=== PATIENT | male | born 1955 | race Caucasian/White ===

== ENCOUNTER 2021-07-17 11:04 | Outpatient (CLI) | payer MEDICARE, SELFPAY ==
--- NOTE | ~2021-07-17 | XR_ITS ---
EXAMINATION: XR UGIAC wo kub DATE: 07/17/2021 11:49 INDICATION: Chronic cough, right chest pain TECHNIQUE: The patient drank thick barium, gas-producing crystals, and thin barium. Conventional supi ne abdomen radiographs and fluoroscopy of the esophagus, stomach, and proximal small bowel were perfo rmed. Fluoroscopy exposure time was 2.9 minutes. The DAP for this procedure was 19 Gycm2. COMPARISON: None. FINDINGS: There is no mass or stricture of the esophagus. Esophageal motility is normal. There is a s mall sliding hiatal hernia. There was a small amount of spontaneous gastroesophageal reflux. The stom ach and proximal small bowel show normal folding patterns. IMPRESSION: 1. Small sliding hiatal hernia. 2. Small amount of spontaneous gastroesophageal reflux. Reviewed, dictated and finalized at location A.
== END 2021-07-17 11:05 | disposition home or self-care (01) ==
LOC: ANHIMG 11:08
PROVIDERS: PCP Physician Assistant; Visit Provider Physician Assistant
DX: R05.3 Chronic cough (principal); K44.9 Diaphragmatic hernia without obstruction or gangrene
CPT/HCPCS: 74246

== ENCOUNTER 2021-07-23 08:06 | Outpatient (CLI) | payer MEDICARE, SELFPAY ==
--- NOTE | 2021-07-24 11:17 | WPDPFTINT ---
PFT Procedure Performed PFT Procedure Performed Spirometry with Pre/Post Bronchodilator Plethysmography (Lung Vol) Diffusing Cap (DLCO) Flow Vol Loop PFT Interpretation Lung volumes were measured with the body plethysmography method. Lung volumes are unremarkable. Spirometry showed normal expiratory flow rates and a normal FEV1 to FVC ratio of 86%. Following administration of a bronchodilator there was no significant change in the expiratory flow rates. Lung diffusion capacity is within the normal range at 83% predicted. The flow volume loop is unremarkable. Impression: Spirometry, lung volumes, and lung diffusion capacity all within the normal range.
== END 2021-07-23 08:07 | disposition home or self-care (01) ==
LOC: ANHPFT 08:07
PROVIDERS: PCP Physician Assistant
DX: R05.3 Chronic cough (principal)
CPT/HCPCS: 94060; 94726; 94729

== ENCOUNTER 2024-02-23 09:42 | Outpatient (CLI) | payer MEDICARE, SELFPAY ==
--- NOTE | ~2024-02-23 | XR_ITS ---
Clinical Indication: Malignant melanoma PA and lateral views of the chest: Comparison: 04/03/2015 Findings: The lungs are clear, without evidence of focal consolidation or pleural effusion. Cardiome diastinal silhouette is within normal limits. Bones and soft tissues are unremarkable. Impression: Normal chest. Reviewed, dictated and finalized at location . ORIAL ARTIST Impression: Normal chest.
== END 2024-02-23 09:43 | disposition home or self-care (01) ==
LOC: GOSHIMG 09:44
PROVIDERS: PCP Surgery; Visit Provider Surgery
DX: C43.59 Malignant melanoma of other part of trunk (principal)
CPT/HCPCS: 71046

== ENCOUNTER 2024-03-23 14:04 | Outpatient (CLI) | payer MEDICARE, SELFPAY ==
--- NOTE | ~2024-03-23 | XR_ITS ---
EXAMINATION: XR shoulder RT min 2V, XR clavicle BI, XR shoulder LT min 2V DATE: 03/23/2024 14:32 INDICATION: Bilateral shoulder pain TECHNIQUE: 1. AP internally and externally rotated, AP oblique externally rotated and transscapular Y views of t he affected shoulder were obtained. 2. AP internally and externally rotated, AP oblique externally rotated and transscapular Y views of t he affected shoulder were obtained. 3. AP and cephalad angled frontal views of both the left and right ankles were obtained. COMPARISON: None FINDINGS: Right shoulder and clavicle: Normal alignment. No fracture. Glenohumeral joint is normal. Mild acromioclavicular osteoarthritis. Tiny calcific densities in the soft tissues adjacent to the posterior margin of the middle facet of t he right greater tuberosity consistent with infraspinatus calcific tendinitis.. Right lung is clear w ith no pleural effusion or pneumothorax. Left shoulder and clavicle: Normal alignment. No fracture. Glenohumeral joint is normal. Mild to moderate left acromioclavicular osteoarthritis. Moderate-sized anterior left acromial spur. Soft tissues are unremarkable. Left lung is clear with no pleural effusion or pneumothorax. IMPRESSION: 1. 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 2. Right infraspinatus calcific tendinitis. Reviewed, dictated and finalized at location B. SKEINS EXAMINER IMPRESSION: 1. Mild right-sided and mild to moderate left-sided acromioclavicular osteoarth ritis. 2. Right infraspinatus calcific tendinitis. IMPRESSION: 1. Mild right-sided and mild to moderate left-sided acromioclavicular osteoarth ritis. 2. Right infraspinatus calcific tendinitis.
== END 2024-03-23 14:05 | disposition home or self-care (01) ==
LOC: GOSHIMG 14:07
PROVIDERS: PCP Physician Assistant; Visit Provider Physician Assistant
DX: M19.011 Primary osteoarthritis, right shoulder (principal); M75.31 Calcific tendinitis of right shoulder; M19.012 Primary osteoarthritis, left shoulder
CPT/HCPCS: 73000; 73030

== ENCOUNTER 2024-07-05 08:55 | Outpatient (CLI) | payer MEDICARE, SELFPAY ==
--- NOTE | ~2024-07-05 | CT_ITS ---
EXAMINATION: CT sinus wo con DATE: 07/05/2024 09:09 INDICATION: Deviated nasal septum TECHNIQUE: Computed tomography (CT) of the paranasal sinuses was performed without intravenous contra st. The dose-length product was 400.44 mGy-cm. Automated exposure control and iterative reconstructio n technique were employed. COMPARISON: None FINDINGS: Rightward nasal septal deviation. There is mucosal thickening of the maxillary sinuses. The re is mild mucosal thickening of the point sinuses. There is a small air-fluid level in the left maxi llary sinus. No mucoperiosteal reaction. Ostiomeatal units are patent. IMPRESSION: 1. Mild-moderate sinus disease primarily involving the maxillary sinuses. 2: Rightward nasal septal deviation. Reviewed, dictated and finalized at location A.
== END 2024-07-05 08:56 | disposition home or self-care (01) ==
PROVIDERS: PCP Otolaryngology; Visit Provider Otolaryngology
DX: J34.2 Deviated nasal septum (principal); J32.9 Chronic sinusitis, unspecified
CPT/HCPCS: 70486

== ENCOUNTER 2024-10-01 13:21 | Outpatient (CLI) | payer MEDICARE, SELFPAY ==
--- NOTE | 2024-10-01 13:31 | ECG_ITS ---
Test Date: 2024-10-01 13:48:21 Measurements Intervals Devine Rate: 56 P: 71 GA: 171 QRS: 0 QRSD: 108 T: 23 QT: 425 QTc: 411 Interpretive Statements SINUS BRADYCARDIA VOLTAGE CRITERIA FOR LVH, CONSIDER NORMAL VARIANT Electronically Signed On 10-02-2024 17:08:16 CDT by Michael Hills D.O
--- OUTSIDE RECORDS SUMMARY | 2024-10-01 13:33 | XMS_ITS | Referral Summary ---
Author Organization [address] Address [address] [place] [id number] Care Team Providers Care Cpo Name Role Phone Karen Donovan Primary Care Pr ovider Allergies No known active allergies Medications ISOtretinoin (Accutane) 40 mg capsule Take 1 capsule (40 mg total) by mouth once a week Active irbesartan (AVAPRO) 300 mg tablet Take 1 tablet (300 mg total) by mouth daily 2 Active rosuvastatin (CRESTOR) 10 mg tablet Take 1 tablet (10 mg total) by mouth daily 2 Active tadalafiL (CIALIS) 5 mg tablet Take 1 tablet (5 mg total) by mouth daily 3 Active Xyosted 75 mg/0.5 mL auto-injector Inject 2 mL under the skin once a week 5 Active triamcinolone (KENALOG) 0.5 % cream APPLY TOPICALLY TO RASH TWICE DAILY FOR 4 WEEKS. STOP FOR 2 WEEKS BEFORE RESTARTING NO FACE 5 Active Active Problems No known active problems Social History Tobacco Use Types Packs/Day Years Used Date Smoking Tobacco: Never Smokeless Tobacco: Never Tobacco Cessation:Counseling Given: No AUDIT-C Answer Date Recorded Q1: How often do you have a drink containing alcohol? Never 05/01/2024 Q2: How many drinks containi ng alcohol do you have on a typical day when you are drinking? Patient does not drink 5 Q3: How often do you have si x or more drinks on one occasion? Never 05/01/2024 Sex and Gender Information Value Date Recorded Sex Assigned at Not on file Legal Sex Male 9:47 AM CDT Gender Identity Not on file Sexual Orientation Not on file Last Filed Vital Signs Vital Sign Reading Time Taken Comments Blood Pressure 138/83 06/13/2024 8:14 AM CDT Pulse 60 06/13/2024 8:14 AM CDT Temperature 36.8 C (98.3 F) 06/13/2024 8:14 AM CDT Respiratory Rate 20 06/13/2024 8:14 AM CDT Oxygen Saturation 100% 06/13/2024 8:14 AM CDT Inhaled Oxygen Concentration - - Weight 78.5 kg (173 lb) 06/13/2024 8:14 AM CDT Height 172.7 cm (5' 8) 06/13/2024 8:14 AM CDT Body Mass Index 26.3 06/13/2024 8:14 AM CDT Plan of Treatment Not on file Insurance MEDICARE AET SENIOR SUPPLEMENT Care Teams Cpo Relationship Specialty Start Date End Date Karen Donovan PA [address] [place] [address] PCP - General Physician Return Checker 04/05/24
--- OUTSIDE RECORDS SUMMARY | 2024-10-01 13:33 | XMS_ITS | Clinical Summary ---
Author Organization [facility] Address [address] [place] [address] Care Team Providers Care Gear And Spline Grinder Name Role Phone Karen Bond Primary Care Pr ovider Source Comments [facility],non-owned Affiliates and Associated Physician Practices is amultiple site organization consisting of ambulatory clinics and hospital sitesin [place], [place], [place] and [place]. This disclosure is being madepursuant to the Care Everywhere program and may not contain all information available regarding this patient. Last updated 17.[facility] Allergies No known active allergies Medications * Be aware that medications may not be up to date on this document. Alwaysverify current medications with the patient. irbesartan (Avapro) 300 MG tablet Take 1 (one) tablet by mouth once daily 08/17/2021 Active ISOtretinoin (Accutane) 40 MG capsule Take 1 (one) capsule by mouth once a week Active rosuvastatin (Crestor) 10 MG tablet 12/01/2022 Active tadalafil (Cialis) 5 MG tablet Take 1 (one) tablet by mouth once daily 12/01/2022 Active Active Problems Problem Noted Date Diagnosed Date Malignant melanoma of skin of chest 12/06/2022 Social History Tobacco Use Types Packs/Day Years Used Date Smoking Tobacco: Never Smokeless Tobacco: Never Tobacco Cessation:Counseling Given: Not Answered AUDIT-C Answer Date Recorded Q1: How often do you have a drink containing alcohol? Never 01/11/2023 Q2: How many drinks containi ng alcohol do you have on a typical day when you are drinking? Patient does not drink 11/07/202 3 Q3: How often do you have si x or more drinks on one occasion? Never 01/11/2023 Sex and Gender Information Value Date Recorded Sex Assigned at Not on file Legal Sex Male 6:05 AM PROCEDURE RN Gender Identity Not on file Sexual Orientation Not on file Last Filed Vital Signs Vital Sign Reading Time Taken Comments Blood Pressure 112/69 02/06/2024 1:22 PM PROCEDURE RN Pulse 66 02/06/2024 1:22 PM PROCEDURE RN Temperature 36.6 C (97.9 F) 02/06/2024 1:22 PM PROCEDURE RN Respiratory Rate 12 01/11/2023 11:45 AM PROCEDURE RN Oxygen Saturation 95% 02/06/2024 1:22 PM PROCEDURE RN Inhaled Oxygen Concentration - - Weight 76.7 kg (169 lb) 02/06/2024 1:22 PM PROCEDURE RN Height 172.7 cm (5' 8) 02/06/2024 1:22 PM PROCEDURE RN Body Mass Index 25.7 02/06/2024 1:22 PM PROCEDURE RN Plan of Treatment Health Maintenance Due Date Last Done Comments COLON MONITORING 1954 COLONOSCOPY - COLON CA SCREENING 1954 CT COLONOGRAPHY - COLON CA SCREENING 1954 FIT - COLON CA SCREENING 1954 FLEX SIG - COLON CA SCREENING 1954 MEDICARE AWV 12 MONTHS 1954 HEPATITIS C SCREENING 12/03/1972 DTAP/TDAP/TD VACCINES (1 - Tdap) 1973 PNEUMOCOCCAL VACCINE 50+ (1 of 1 - PCV) 2004 ZOSTER VACCINE (1 of 2) 2004 COVID-19 VACCINE (2 - 2023-2 5 season) 2023 11/29/2020 SCREENING FOR DIABETES 02/06/2024 DEPRESSION SCREENING 03/07/2024 COLOGUARD (AGES 45-75) - COL ON CA SCREENING 07/20/2024 07/20/2021 Colorectal Cancer Screening 07/20/2024 INFLUENZA VACCINE (#1) 2024 4, 12/20/2012 Respiratory Syncytial Virus (RSV) Vaccine Pt: or over 60 yrs (1 - 1-dose 75+ series) 2029 HEPATITIS B VACCINE Aged Out No longe r eligible based on patient's age to complete this topic HIB VACCINE Aged Out No longer eligi ble based on patient's age to complete this topic HPV VACCINE Aged Out No longer eligi ble based on patient's age to complete this topic MENINGOCOCCAL (Group B) VACCINE SHARED DECISION-MAKING Aged Out No longer eligible based on patient's age to complete this topic MENINGOCOCCAL GROUPS A/C/Y/W VACCINE Aged Out No longer eligible b ased on patient's age to complete this topic Insurance [place] [id number] Care Teams Gear And Spline Grinder Relationship Specialty Start Date End Date Karen Bond PA [address] [place] [address] PCP - General Physician Diesel Engine Assembler 12/06/22
--- OUTSIDE RECORDS SUMMARY | 2024-10-01 13:33 | XMS_ITS | Data Portability ---
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 Plan of Treatment Reminders Order Date Submit Date Provider Last Modified By Organization Details Last Modified Time Details Appointments ANY 15 2024 08:00A DALE Hernandes Not available Not available Not available Lab CBC w/ auto diff 2024 025 [facility], [address] [place] [address], [id number], 07/06/2024 07:13:25 hepatic function panel, serum 2024 025 [facility], [address] [place] [address], [id number], 07/06/2024 07:13:22 BMP, serum or plasma 2024 025 [facility], [address] [place] [address], [place], [address], 07/06/2024 07:13:23 TSH + free T4, serum 2024 025 [facility], [address] [place] [address] [address], [address], 07/06/2024 07:13:21 lipid panel, serum 2024 025 [facility], [address] [place] [address], [place], [address], 07/06/2024 07:13:20 PSA, total, serum or plasma 2024 025 [facility], [address] [facility], [place], [address], 07/06/2024 07:13:26 noninvasi ve colorecta l cancer DNA + occult blood screening , QL, stool 2024 025 [employer] (Cologuard Orders Only), [address], [address], [place], [address], 08/14/2024 03:46:35 HbA1c (hemoglob in A1c), blood 2024 025 [facility], [address] [facility], [address], [place], [address], 07/06/2024 07:13:24 PSA, total, serum or plasma 2023 025 [facility], [address] [facility], [address], [place], [address], 06/11/2024 03:03:59 HbA1c (hemoglob in A1c), blood 2023 025 [facility], [address] [facility], [address], [place], [address], 06/11/2024 03:03:58 CBC w/ auto diff 2023 025 [facility], [address], [place], [address], 07/06/2024 12:59:17 hepatic function panel, serum 2023 025 [facility], [address] [facility], [place], [address], 06/11/2024 03:03:57 BMP, serum or plasma 2023 025 [facility], [address], [place], [address], 06/11/2024 03:03:58 TSH + free T4, serum 2023 025 [facility], [address], [address], [place], [address], 07/06/2024 12:59:17 lipid panel, serum 2023 025 [facility], [address], [place], [address], 06/11/2024 03:03:56 HbA1c (hemoglob in A1c), blood 2023 024 [facility], [address], [place], [address], 12/28/2023 06:20:58 albumin/c reatinine , mass ratio, urine 2023 024 [facility], [address], [place], [address], 12/28/2023 06:20:55 microalbu min, urine 2023 024 [email or web address], [address], [place], [address], 06/06/2024 09:29:19 CBC w/ auto diff 2023 024 [facility], [address], [place], [address], 12/28/2023 06:20:58 hepatic function panel, serum 2023 024 [facility], [address], [place], [address], 12/28/2023 06:20:56 BMP, serum or plasma 2023 024 [facility], [address], [place], [address], 12/28/2023 06:20:57 lipid panel, serum 2023 024 [facility], [address], [place], [address], 12/28/2023 06:20:56 Referral None recorded. Procedures None recorded. Surgeries None recorded. Imaging XR, shoulder, 2 or more view 2024 025 [facility], [address] [facility] , [address], [place], [address], 03/26/2024 09:19:40 XR, clavicle 2024 025 [email or web address] [facility], [address] [facility] , [address], [place], [address], 03/30/2024 13:59:28 Medication Orders None recorded. Patient TargetsNo targets recorded. Patient Instructions Encounter Date Encounter Id Patient Instructions Last Modified By Organization Details Last Modified Time 12/29/2023 [id number] A healthy lifestyle: care instructions Not available 12/29/2023 09:19:58 06/21/2024 [id number] A healthy lifestyle: care instructions Not available 06/21/2024 09:17:15 Reason for Referral None Reported. Results Created Date Observation Date Name Description Value Unit Range Abnormal Flag Note LastModifiedBy Organization Detail LastModifiedTime 06/10/1906/11/2023 TSH+F REE T4 TSH 2.900 uIU/m L 0.450- 4.500 Not Available [facility] ([facility]) [address] [place], [address], 06/11/2023 12:10:42 06/10/1906/11/2023 TSH+F REE T4 T4,free(dire ct) 1.03 NG/dL 0.82-1 .77 Not Available [facility] ([facility]) [address] [facility], [place], [address], 06/11/2023 12:10:42 06/10/19 24 06/11/2023 LIPID PANEL cholesterol, total 137 mg/dL 100-19 9 Not Available [facility] ([facility]) [address] [facility] [place], [address], 06/11/2023 12:10:42 06/10/19 24 06/11/2023 LIPID PANEL triglyceride s 80 mg/dL 0-149 Not Available [facility]) [address] [place], [address], 06/11/2023 12:10:42 06/10/19 24 06/11/2023 LIPID PANEL HDL cholesterol 60 mg/dL >39 Not Available [facility]) [address] [place], [address], 06/11/2023 12:10:42 06/10/19 24 06/11/2023 LIPID PANEL VLDL cholesterol kathleen 16 mg/dL 5-40 Not Available [facility]) [address] [place], [address], 06/11/2023 12:10:42 06/10/19 24 06/11/2023 LIPID PANEL LDL chol calc ([facility]) 61 mg/dL 0-99 Not Available [facility]) [address] [place], [address], 06/11/2023 12:10:42 06/10/19 24 06/11/2023 HEPAT IC FUNCT ION PANEL (7) protein, total 6.6 g/dL 6.0-8. 5 Not Available [facility] ([facility]) [address] [place], [address], 06/11/2023 12:10:43 06/10/19 24 06/11/2023 HEPAT IC FUNCT ION PANEL (7) albumin 4.5 g/dL 3.9-4. 9 Not Available [facility] ([facility]) [address] [facility] [place], [address], 06/11/2023 12:10:43 06/10/19 24 06/11/2023 HEPAT IC FUNCT ION PANEL (7) bilirubin, total 1.0 mg/dL 0.0-1. 2 Not Available [facility] ([facility]) [address] [facility] [place], [address], 06/11/2023 12:10:43 06/10/19 24 06/11/2023 HEPAT IC FUNCT ION PANEL (7) bilirubin, direct 0.24 mg/dL 0.00-0 .40 Not Available [facility] ([facility]) [address] [facility] [place], [address], 06/11/2023 12:10:43 06/10/19 24 06/11/2023 HEPAT IC FUNCT ION PANEL (7) alkaline phosphatase 80 IU/L 44-121 Not Available [facility]) [address] [facility], [place], [address], 06/11/2023 12:10:43 06/10/19 24 06/11/2023 HEPAT IC FUNCT ION PANEL (7) AST (SGOT) 18 IU/L 0-40 Not Available [facility] ([facility]) [address] [place], [address], 06/11/2023 12:10:43 06/10/19 24 06/11/2023 HEPAT IC FUNCT ION PANEL (7) ALT (SGPT) 17 IU/L 0-44 Not Available [facility] ([facility]) [address] [place], [address], 06/11/2023 12:10:43 06/10/19 24 06/11/2023 BMP7+ EGFR glucose 112 mg/dL 70-99 above high normal Not Available [facility] ([facility]) [address] [place], [address], 06/11/2023 12:10:43 06/10/19 24 06/11/2023 BMP7+ EGFR BUN 13 mg/dL 8-27 Not Available [facility] ([facility]) [address] [facility] [place], [address], 06/11/2023 12:10:43 06/10/19 24 06/11/2023 BMP7+ EGFR creatinine 1.29 mg/dL 0.76-1 .27 above high normal Not Available [facility] ([facility]) [address] [facility], [place], [address], 06/11/2023 12:10:43 06/10/19 24 06/11/2023 BMP7+ EGFR eGFR 60 mL/mi n/1.7 3 >59 Not Available [facility] ([facility]) [address] [facility], [place], [address], 06/11/2023 12:10:43 06/10/19 24 06/11/2023 BMP7+ EGFR sodium 143 mmol/ L 134-14 4 Not Available [facility] ([facility]) [address] [facility], [place], [address], 06/11/2023 12:10:43 06/10/19 24 06/11/2023 BMP7+ EGFR potassium 4.8 mmol/ L 3.5-5. 2 Not Available [facility] ([facility]) [address] [facility], [place], [address], 06/11/2023 12:10:43 06/10/19 24 06/11/2023 BMP7+ EGFR chloride 104 mmol/ L 96-106 Not Available [facility] ([facility]) [address] [place], [address], 06/11/2023 12:10:43 06/10/19 24 06/11/2023 BMP7+ EGFR carbon dioxide, total 27 mmol/ L 20-29 Not Available [facility] ([facility]) [address] [place], [address], 06/11/2023 12:10:43 06/10/19 24 06/11/2023 HEMOG LOBIN A1C hemoglobin A1C 6.6 % 4.8-5. 6 above high normal Predi abete s: 5.7 - 6.4 Diabe susan: >6.4 Glyce mackenzie contr ol for adult s with diabe susan: <7.0 Not Available [facility] ([facility]) [address] [facility], [place], [address], 06/11/2023 12:10:43 06/10/19 24 06/11/2023 CBC WITH DIFFE RENTI AL/PL ATELE T WBC 5.8 x10e3 /uL 3.4-10 .8 Not Available [facility] ([facility]) [address] [facility], [place], [address], 06/11/2023 12:10:44 06/10/19 24 06/11/2023 CBC WITH DIFFE RENTI AL/PL ATELE T RBC 5.47 x10e6 /uL 4.14-5 .80 Not Available [facility] ([facility]) [address] [facility], [place], [address], 06/11/2023 12:10:44 06/10/19 24 06/11/2023 CBC WITH DIFFE RENTI AL/PL ATELE T hemoglobin 16.6 g/dL 13.0-1 7.7 Not Available [facility] ([facility]) [address] [facility], [place], [address], 06/11/2023 12:10:44 06/10/19 24 06/11/2023 CBC WITH DIFFE RENTI AL/PL ATELE T hematocrit 50.0 % 37.5-5 1.0 Not Available [facility] ([facility]) [address] [facility], [place], [address], 06/11/2023 12:10:44 06/10/19 24 06/11/2023 CBC WITH DIFFE RENTI AL/PL ATELE T MCV 91 fL 79-97 Not Available [facility] ([facility]) [address] [place], [address], 06/11/2023 12:10:44 06/10/19 24 06/11/2023 CBC WITH DIFFE RENTI AL/PL ATELE T MCH 30.3 pg 26.6-3 3.0 Not Available [facility] ([facility]) [address] [facility], [place], [address], 06/11/2023 12:10:44 06/10/19 24 06/11/2023 CBC WITH DIFFE RENTI AL/PL ATELE T MCHC 33.2 g/dL 31.5-3 5.7 Not Available [facility] ([facility]) [address] [facility], [place], [address], 06/11/2023 12:10:44 06/10/19 24 06/11/2023 CBC WITH DIFFE RENTI AL/PL ATELE T RDW 12.3 % 11.6-1 5.4 Not Available [facility] ([facility]) [address] [place], [address], 06/11/2023 12:10:44 06/10/19 24 06/11/2023 CBC WITH DIFFE RENTI AL/PL ATELE T platelets 187 x10e3 /uL 150-45 0 Not Available [facility] ([facility]) [address] [facility], [place], [address], 06/11/2023 12:10:44 06/10/19 24 06/11/2023 CBC WITH DIFFE RENTI AL/PL ATELE T neutrophils 53 % notest ab. Not Available [facility] ([facility]) [address] [place], [address], 06/11/2023 12:10:44 06/10/19 24 06/11/2023 CBC WITH DIFFE RENTI AL/PL ATELE T lymphs 38 % notest ab. Not Available [facility] ([facility]) [address] [facility], [place], [address], 06/11/2023 12:10:44 06/10/19 24 06/11/2023 CBC WITH DIFFE RENTI AL/PL ATELE T monocytes 8 % notest ab. Not Available [facility] ([facility]) [address] [facility], [place], [address], 06/11/2023 12:10:44 06/10/19 24 06/11/2023 CBC WITH DIFFE RENTI AL/PL ATELE T eos 1 % notest ab. Not Available [facility] ([facility]) [address] [facility], [place], [address], 06/11/2023 12:10:44 06/10/19 24 06/11/2023 CBC WITH DIFFE RENTI AL/PL ATELE T basos 0 % notest ab. Not Available [facility] ([facility]) [address] [facility], [place], [address], 06/11/2023 12:10:44 06/10/19 24 06/11/2023 CBC WITH DIFFE RENTI AL/PL ATELE T neutrophils (absolute) 3.1 x10e3 /uL 1.4-7. 0 Not Available [facility] ([facility]) [address] [facility], [place], [address], 06/11/2023 12:10:44 06/10/19 24 06/11/2023 CBC WITH DIFFE RENTI AL/PL ATELE T lymphs (absolute) 2.2 x10e3 /uL 0.7-3. 1 Not Available [facility] ([facility]) [address] [facility], [place], [address], 06/11/2023 12:10:44 06/10/19 24 06/11/2023 CBC WITH DIFFE RENTI AL/PL ATELE T monocytes(ab solute) 0.4 x10e3 /uL 0.1-0. 9 Not Available [facility] ([facility]) [address] [facility], [place], [address], 06/11/2023 12:10:44 06/10/19 24 06/11/2023 CBC WITH DIFFE RENTI AL/PL ATELE T eos (absolute) 0.1 x10e3 /uL 0.0-0. 4 Not Available [facility] ([facility]) [address] [facility], [place], [address], 06/11/2023 12:10:44 06/10/19 24 06/11/2023 CBC WITH DIFFE RENTI AL/PL ATELE T baso (absolute) 0.0 x10e3 /uL 0.0-0. 2 Not Available [facility] ([facility]) [address] [facility], [place], [address], 06/11/2023 12:10:44 06/10/19 24 06/11/2023 CBC WITH DIFFE RENTI AL/PL ATELE T immature granulocytes 0 % notest ab. Not Available [facility] ([facility]) [address] [facility], [place], [address], 06/11/2023 12:10:44 06/10/19 24 06/11/2023 CBC WITH DIFFE RENTI AL/PL ATELE T immature grans (abs) 0.0 x10e3 /uL 0.0-0. 1 Not Available [facility] ([facility]) [address] [place], [address], 06/11/2023 12:10:44 06/10/19 24 06/11/2023 PROST ATE-S PECIF IC AG prostate specific Ag 2.3 NG/mL 0.0-4. 0 Evan ECLIA metho dolog y. Accor ding to the Ameri can [employer] g[employer] iatio n, Serum PSA shoul d decre ase and remai n at undet ectab le level s after radic al prost atect brandyn. The AUA defin es bioch emica l recur rence as an initi al PSA value 0.2 ng/mL or great er follo wed by a subse quent confi rmato ry PSA value 0.2 ng/mL or great er. Value s obtai stanley with diffe rent assay metho ds or kits canno t be used inter sosa eay . Resul ts canno t be inter prete d as absol anvik evide nce of the prese nce or absen ce of [facility] [employer] se. Not Available [facility] ([facility]) [address] [facility], [place], [address], 06/11/2023 12:10:44 12/27/1912/28/2023 ALBUM IN/CR EATIN INE RATIO ,URIN E creatinine, urine 222.8 mg/dL notest ab. Not Available [facility] ([facility]) [address] [facility], [place], [address], 12/28/2023 06:20:55 12/27/1912/28/2023 ALBUM IN/CR EATIN INE RATIO ,URIN E albumin, urine 7.5 ug/mL notest ab. Not Available [facility] ([facility]) [address] [facility], [place], [address], 12/28/2023 06:20:55 12/27/1912/28/2023 ALBUM IN/CR EATIN INE RATIO ,URIN E alb/creat ratio 3 mg/g_ creat 0-29 Aliya l: 0 - 29 Moder ately incre ased: 30 - 300 Sever joao incre ased: >300 Not Available [facility] ([facility]) [address] [facility], [place], [address], 12/28/2023 06:20:55 12/27/1912/28/2023 LIPID PANEL cholesterol, total 134 mg/dL 100-19 9 Not Available [facility] ([facility]) [address] [place], [address], 12/28/2023 06:20:55 10/22/20 24 12/28/2023 LIPID PANEL triglyceride s 61 mg/dL 0-149 Not Available [facility] ([facility]) [address] [place], [address], 12/28/2023 06:20:55 12/27/19 24 12/28/2023 LIPID PANEL HDL cholesterol 64 mg/dL >39 Not Available [facility] ([facility]) [address] [place], [address], 12/28/2023 06:20:55 12/27/1912/28/2023 LIPID PANEL VLDL cholesterol kathleen 13 mg/dL 5-40 Not Available [facility] ([facility]) [address] [place], [address], 12/28/2023 06:20:55 12/27/1912/28/2023 LIPID PANEL LDL chol calc ([facility]) 57 mg/dL 0-99 Not Available [facility] ([facility]) [address] [place], [address], 12/28/2023 06:20:55 12/27/1912/28/2023 HEPAT IC FUNCT ION PANEL (7) protein, total 6.5 g/dL 6.0-8. 5 Not Available [facility] ([facility]) [address] [place], [address], 12/28/2023 06:20:56 12/27/1912/28/2023 HEPAT IC FUNCT ION PANEL (7) albumin 4.4 g/dL 3.9-4. 9 Not Available [facility] ([facility]) [address] [place], [address], 12/28/2023 06:20:56 12/27/19 24 12/28/2023 HEPAT IC FUNCT ION PANEL (7) bilirubin, total 0.8 mg/dL 0.0-1. 2 Not Available [facility] ([facility]) [address] [facility], [place], [address], 12/28/2023 06:20:56 12/27/1912/28/2023 HEPAT IC FUNCT ION PANEL (7) bilirubin, direct 0.24 mg/dL 0.00-0 .40 Not Available [facility] ([facility]) [address] [facility] [place], [address], 12/28/2023 06:20:56 12/27/1912/28/2023 HEPAT IC FUNCT ION PANEL (7) alkaline phosphatase 68 IU/L 44-121 Not Available [facility] ([facility]) [address] [facility], [place], [address], 12/28/2023 06:20:56 12/27/1912/28/2023 HEPAT IC FUNCT ION PANEL (7) AST (SGOT) 20 IU/L 0-40 Not Available [facility] ([facility]) [address] [facility], [place], [address], 12/28/2023 06:20:56 12/27/1912/28/2023 HEPAT IC FUNCT ION PANEL (7) ALT (SGPT) 20 IU/L 0-44 Not Available [facility] ([facility]) [address] [place], [address], 12/28/2023 06:20:56 12/27/1912/28/2023 BMP7+ EGFR glucose 103 mg/dL 70-99 above high normal Not Available [facility] ([facility]) [address] [place], [address], 12/28/2023 06:20:57 12/27/1912/28/2023 BMP7+ EGFR BUN 16 mg/dL 8-27 Not Available [facility] ([facility]) [address] [place], [address], 12/28/2023 06:20:57 12/27/1912/28/2023 BMP7+ EGFR creatinine 1.13 mg/dL 0.76-1 .27 Not Available [facility] ([facility]) [address] [place], [address], 12/28/2023 06:20:57 12/27/1912/28/2023 BMP7+ EGFR eGFR 70 mL/mi n/1.7 3 >59 Not Available [facility] ([facility]) [address] [facility], [place], [address], 12/28/2023 06:20:57 12/27/1912/28/2023 BMP7+ EGFR sodium 143 mmol/ L 134-14 4 Not Available [facility] ([facility]) [address] [facility], [place], [address], 12/28/2023 06:20:57 12/27/1912/28/2023 BMP7+ EGFR potassium 4.9 mmol/ L 3.5-5. 2 Not Available [facility] ([facility]) [address] [place], [address], 12/28/2023 06:20:57 12/27/1912/28/2023 BMP7+ EGFR chloride 106 mmol/ L 96-106 Not Available [facility] ([facility]) [address] [place], [address], 12/28/2023 06:20:57 12/27/1912/28/2023 BMP7+ EGFR carbon dioxide, total 26 mmol/ L 20-29 Not Available [facility] ([facility]) [address] [place], [address], 12/28/2023 06:20:57 12/27/1912/28/2023 HEMOG LOBIN A1C hemoglobin A1C 6.2 % 4.8-5. 6 above high normal Predi abete s: 5.7 - 6.4 Diabe susan: >6.4 Glyce mackenzie contr ol for adult s with diabe susan: <7.0 Not Available [facility] ([facility]) [address] [facility], [place], [address], 12/28/2023 06:20:57 12/27/1912/28/2023 CBC WITH DIFFE RENTI AL/PL ATELE T WBC 6.6 x10e3 /uL 3.4-10 .8 Not Available [facility] ([facility]) [address] [facility], [place], [address], 12/28/2023 06:20:58 12/27/1912/28/2023 CBC WITH DIFFE RENTI AL/PL ATELE T RBC 4.99 x10e6 /uL 4.14-5 .80 Not Available [facility] ([facility]) [address] [facility], [place], [address], 12/28/2023 06:20:58 12/27/1912/28/2023 CBC WITH DIFFE RENTI AL/PL ATELE T hemoglobin 15.3 g/dL 13.0-1 7.7 Not Available [facility] ([facility]) [address] [place], [address], 12/28/2023 06:20:58 12/27/1912/28/2023 CBC WITH DIFFE RENTI AL/PL ATELE T hematocrit 48.0 % 37.5-5 1.0 Not Available [facility] ([facility]) [address] [place], [address], 12/28/2023 06:20:58 12/27/1912/28/2023 CBC WITH DIFFE RENTI AL/PL ATELE T MCV 96 fL 79-97 Not Available [facility] ([facility]) [address] [place], [address], 12/28/2023 06:20:58 12/27/1912/28/2023 CBC WITH DIFFE RENTI AL/PL ATELE T MCH 30.7 pg 26.6-3 3.0 Not Available [facility] ([facility]) [address] [facility], [place], [address], 12/28/2023 06:20:58 12/27/19 24 12/28/2023 CBC WITH DIFFE RENTI AL/PL ATELE T MCHC 31.9 g/dL 31.5-3 5.7 Not Available [facility] ([facility]) [address] [facility], [place], [address], 12/28/2023 06:20:58 12/27/1912/28/2023 CBC WITH DIFFE RENTI AL/PL ATELE T RDW 12.3 % 11.6-1 5.4 Not Available [facility] ([facility]) [address] [facility], [place], [address], 12/28/2023 06:20:58 12/27/1912/28/2023 CBC WITH DIFFE RENTI AL/PL ATELE T platelets 181 x10e3 /uL 150-45 0 Not Available [facility] ([facility]) [address] [facility], [place], [address], 12/28/2023 06:20:58 12/27/19 24 12/28/2023 CBC WITH DIFFE RENTI AL/PL ATELE T neutrophils 55 % notest ab. Not Available [facility] ([facility]) [address] [facility], [place], [address], 12/28/2023 06:20:58 12/27/19 24 12/28/2023 CBC WITH DIFFE RENTI AL/PL ATELE T lymphs 37 % notest ab. Not Available [facility] ([facility]) [address] [facility], [place], [address], 12/28/2023 06:20:58 12/27/19 24 12/28/2023 CBC WITH DIFFE RENTI AL/PL ATELE T monocytes 7 % notest ab. Not Available [facility] ([facility]) [address] [facility], [place], [address], 12/28/2023 06:20:58 12/27/1912/28/2023 CBC WITH DIFFE RENTI AL/PL ATELE T eos 1 % notest ab. Not Available [facility] ([facility]) [address] [facility], [place], [address], 12/28/2023 06:20:58 12/27/1912/28/2023 CBC WITH DIFFE RENTI AL/PL ATELE T basos 0 % notest ab. Not Available [facility] ([facility]) [address] [facility], [place], [address], 12/28/2023 06:20:58 12/27/19 24 12/28/2023 CBC WITH DIFFE RENTI AL/PL ATELE T neutrophils (absolute) 3.6 x10e3 /uL 1.4-7. 0 Not Available [facility] ([facility]) [address] [facility], [place], [address], 12/28/2023 06:20:58 12/27/1912/28/2023 CBC WITH DIFFE RENTI AL/PL ATELE T lymphs (absolute) 2.5 x10e3 /uL 0.7-3. 1 Not Available [facility] ([facility]) [address] [place], [address], 12/28/2023 06:20:58 12/27/1912/28/2023 CBC WITH DIFFE RENTI AL/PL ATELE T monocytes(ab solute) 0.5 x10e3 /uL 0.1-0. 9 Not Available [facility] ([facility]) [address] [facility], [place], [address], 12/28/2023 06:20:58 12/27/19 24 12/28/2023 CBC WITH DIFFE RENTI AL/PL ATELE T eos (absolute) 0.1 x10e3 /uL 0.0-0. 4 Not Available [facility] ([facility]) [address] [facility], [place], [address], 12/28/2023 06:20:58 12/27/19 24 12/28/2023 CBC WITH DIFFE RENTI AL/PL ATELE T baso (absolute) 0.0 x10e3 /uL 0.0-0. 2 Not Available [facility] ([facility]) [address] [facility], [place], [address], 12/28/2023 06:20:58 12/27/19 24 12/28/2023 CBC WITH DIFFE RENTI AL/PL ATELE T immature granulocytes 0 % notest ab. Not Available [facility] ([facility]) [address] [facility], [place], [address], 12/28/2023 06:20:58 12/27/19 24 12/28/2023 CBC WITH DIFFE RENTI AL/PL ATELE T immature grans (abs) 0.0 x10e3 /uL 0.0-0. 1 Not Available [facility] ([facility]) [address] [facility] [place], [place], [address], 12/28/2023 06:20:58 07/06/19 25 07/06/2024 LIPID PANEL W/ CHOL/ HDL RATIO cholesterol, total 136 mg/dL 100-19 9 Not Available [facility] ([facility]) [address] [facility] [place], [place], [address], 07/06/2024 07:13:20 07/06/19 25 07/06/2024 LIPID PANEL W/ CHOL/ HDL RATIO triglyceride s 82 mg/dL 0-149 Not Available [facility] ([facility]) [address] [facility] [place], [place], [address], 07/06/2024 07:13:20 07/06/19 25 07/06/2024 LIPID PANEL W/ CHOL/ HDL RATIO HDL cholesterol 58 mg/dL >39 Not Available [facility] ([facility]) [address] [place], [address], 07/06/2024 07:13:20 07/06/19 25 07/06/2024 LIPID PANEL W/ CHOL/ HDL RATIO VLDL cholesterol kathleen 16 mg/dL 5-40 Not Available [facility] ([facility]) [address] [place], [address], 07/06/2024 07:13:20 07/06/19 25 07/06/2024 LIPID PANEL W/ CHOL/ HDL RATIO LDL chol calc ([facility]) 62 mg/dL 0-99 Not Available [facility] ([facility]) [address] [place], [address], 07/06/2024 07:13:20 07/06/19 25 07/06/2024 LIPID PANEL W/ CHOL/ HDL RATIO T. chol/HDL ratio 2.3 ratio 0.0-5. 0 T. Chol/ HDL Ratio Men Women 1/2 Avg.R isk 3.4 3.3 Avg.R isk 5.0 4.4 2X Avg.R isk 9.6 7.1 3X Avg.R isk 23.4 11.0 Not Available [facility] ([facility]) [address] [place], [address], 07/06/2024 07:13:20 07/06/1907/06/2024 TSH+F REE T4 TSH 2.770 uIU/m L 0.450- 4.500 Not Available [facility] ([facility]) [address] [place], [address], 07/06/2024 07:13:21 07/06/1907/06/2024 TSH+F REE T4 T4,free(dire ct) 0.97 NG/dL 0.82-1 .77 Not Available [facility] ([facility]) [address] [place], [address], 07/06/2024 07:13:21 07/06/19 25 07/06/2024 HEPAT IC FUNCT ION PANEL (7) protein, total 6.4 g/dL 6.0-8. 5 Not Available [facility] ([facility]) [address] [facility] [place], [address], 07/06/2024 07:13:22 07/06/19 25 07/06/2024 HEPAT IC FUNCT ION PANEL (7) albumin 4.2 g/dL 3.9-4. 9 Not Available [facility] ([facility]) [address] [facility] [place], [address], 07/06/2024 07:13:22 07/06/19 25 07/06/2024 HEPAT IC FUNCT ION PANEL (7) bilirubin, total 0.8 mg/dL 0.0-1. 2 Not Available [facility] ([facility]) [address] [facility] [place], [address], 07/06/2024 07:13:22 07/06/19 25 07/06/2024 HEPAT IC FUNCT ION PANEL (7) bilirubin, direct 0.26 mg/dL 0.00-0 .40 Not Available [facility] ([facility]) [address] [place], [address], 07/06/2024 07:13:22 07/06/19 25 07/06/2024 HEPAT IC FUNCT ION PANEL (7) alkaline phosphatase 76 IU/L 44-121 Not Available [facility] ([facility]) [address] [place], [address], 07/06/2024 07:13:22 07/06/19 25 07/06/2024 HEPAT IC FUNCT ION PANEL (7) AST (SGOT) 19 IU/L 0-40 Not Available [facility] ([facility]) [address] [place], [address], 07/06/2024 07:13:22 07/06/19 25 07/06/2024 HEPAT IC FUNCT ION PANEL (7) ALT (SGPT) 18 IU/L 0-44 Not Available [facility] ([facility]) [address] [facility] [place], [address], 07/06/2024 07:13:22 07/06/19 25 07/06/2024 BMP7+ EGFR glucose 114 mg/dL 70-99 above high normal Not Available [facility] ([facility]) [address] [facility] [place], [address], 07/06/2024 07:13:23 07/06/19 25 07/06/2024 BMP7+ EGFR BUN 17 mg/dL 8-27 Not Available [facility] ([facility]) [address] [facility] [place], [address], 07/06/2024 07:13:23 07/06/19 25 07/06/2024 BMP7+ EGFR creatinine 1.19 mg/dL 0.76-1 .27 Not Available [facility] ([facility]) [address] [facility], [place], [address], 07/06/2024 07:13:23 07/06/19 25 07/06/2024 BMP7+ EGFR eGFR 66 mL/mi n/1.7 3 >59 Not Available [facility] ([facility]) [address] [facility] [place], [address], 07/06/2024 07:13:23 07/06/19 25 07/06/2024 BMP7+ EGFR sodium 143 mmol/ L 134-14 4 Not Available [facility] ([facility]) [address] [place], [address], 07/06/2024 07:13:23 07/06/19 25 07/06/2024 BMP7+ EGFR potassium 4.9 mmol/ L 3.5-5. 2 Not Available [facility] ([facility]) [address] [place], [address], 07/06/2024 07:13:23 07/06/19 25 07/06/2024 BMP7+ EGFR chloride 106 mmol/ L 96-106 Not Available [facility] ([facility]) [address] [place], [address], 07/06/2024 07:13:23 07/06/19 25 07/06/2024 BMP7+ EGFR carbon dioxide, total 25 mmol/ L 20-29 Not Available [facility] ([facility]) [address] [facility], [place], [address], 07/06/2024 07:13:23 07/06/19 25 07/06/2024 HEMOG LOBIN A1C hemoglobin A1C 6.7 % 4.8-5. 6 above high normal Predi abete s: 5.7 - 6.4 Diabe susan: >6.4 Glyce mackenzie contr ol for adult s with diabe susan: <7.0 Not Available [facility] ([facility]) [address] [facility], [place], [address], 07/06/2024 07:13:24 07/06/19 25 07/05/2024 CBC WITH DIFFE RENTI AL/PL ATELE T WBC 6.4 x10e3 /uL 3.4-10 .8 Not Available [facility] ([facility]) [address] [place], [address], 07/06/2024 07:13:25 07/06/19 25 07/05/2024 CBC WITH DIFFE RENTI AL/PL ATELE T RBC 4.98 x10e6 /uL 4.14-5 .80 Not Available [facility] ([facility]) [address] [place], [address], 07/06/2024 07:13:25 07/06/19 25 07/05/2024 CBC WITH DIFFE RENTI AL/PL ATELE T hemoglobin 15.3 g/dL 13.0-1 7.7 Not Available [facility] ([facility]) [address] [place], [address], 07/06/2024 07:13:25 07/06/19 25 07/05/2024 CBC WITH DIFFE RENTI AL/PL ATELE T hematocrit 47.2 % 37.5-5 1.0 Not Available [facility] ([facility]) [address] [facility], [place], [address], 07/06/2024 07:13:25 07/06/1907/05/2024 CBC WITH DIFFE RENTI AL/PL ATELE T MCV 95 fL 79-97 Not Available [facility] ([facility]) [address] [facility], [place], [address], 07/06/2024 07:13:25 07/06/19 25 07/05/2024 CBC WITH DIFFE RENTI AL/PL ATELE T MCH 30.7 pg 26.6-3 3.0 Not Available [facility] ([facility]) [address] [facility], [place], [address], 07/06/2024 07:13:25 07/06/19 25 07/05/2024 CBC WITH DIFFE RENTI AL/PL ATELE T MCHC 32.4 g/dL 31.5-3 5.7 Not Available [facility] ([facility]) [address] [place], [address], 07/06/2024 07:13:25 07/06/1907/05/2024 CBC WITH DIFFE RENTI AL/PL ATELE T RDW 12.2 % 11.6-1 5.4 Not Available [facility] ([facility]) [address] [place], [address], 07/06/2024 07:13:25 07/06/1907/05/2024 CBC WITH DIFFE RENTI AL/PL ATELE T platelets 211 x10e3 /uL 150-45 0 Not Available [facility] ([facility]) [address] [facility], [place], [address], 07/06/2024 07:13:25 07/06/19 25 07/05/2024 CBC WITH DIFFE RENTI AL/PL ATELE T neutrophils 56 % notest ab. Not Available [facility] ([facility]) [address] [facility], [place], [address], 07/06/2024 07:13:25 07/06/1907/05/2024 CBC WITH DIFFE RENTI AL/PL ATELE T lymphs 34 % notest ab. Not Available [facility] ([facility]) [address] [facility], [place], [address], 07/06/2024 07:13:25 07/06/1907/05/2024 CBC WITH DIFFE RENTI AL/PL ATELE T monocytes 8 % notest ab. Not Available [facility] ([facility]) [address] [facility], [place], [address], 07/06/2024 07:13:25 07/06/1907/05/2024 CBC WITH DIFFE RENTI AL/PL ATELE T eos 2 % notest ab. Not Available [facility] ([facility]) [address] [facility], [place], [address], 07/06/2024 07:13:25 07/06/19 25 07/05/2024 CBC WITH DIFFE RENTI AL/PL ATELE T basos 0 % notest ab. Not Available [facility] ([facility]) [address] [facility], [place], [address], 07/06/2024 07:13:25 07/06/1907/05/2024 CBC WITH DIFFE RENTI AL/PL ATELE T neutrophils (absolute) 3.5 x10e3 /uL 1.4-7. 0 Not Available [facility] ([facility]) [address] [facility], [place], [address], 07/06/2024 07:13:25 07/06/19 25 07/05/2024 CBC WITH DIFFE RENTI AL/PL ATELE T lymphs (absolute) 2.2 x10e3 /uL 0.7-3. 1 Not Available [facility] ([facility]) [address] [facility], [place], [address], 07/06/2024 07:13:25 07/06/19 25 07/05/2024 CBC WITH DIFFE RENTI AL/PL ATELE T monocytes(ab solute) 0.5 x10e3 /uL 0.1-0. 9 Not Available [facility] ([facility]) [address] [facility], [place], [address], 07/06/2024 07:13:25 07/06/19 25 07/05/2024 CBC WITH DIFFE RENTI AL/PL ATELE T eos (absolute) 0.1 x10e3 /uL 0.0-0. 4 Not Available [facility] ([facility]) [address] [facility], [place], [address], 07/06/2024 07:13:25 07/06/19 25 07/05/2024 CBC WITH DIFFE RENTI AL/PL ATELE T baso (absolute) 0.0 x10e3 /uL 0.0-0. 2 Not Available [facility] ([facility]) [address] [facility], [place], [address], 07/06/2024 07:13:25 07/06/1907/05/2024 CBC WITH DIFFE RENTI AL/PL ATELE T immature granulocytes 0 % notest ab. Not Available [facility] ([facility]) [address] [facility], [place], [address], 07/06/2024 07:13:25 07/06/19 25 07/05/2024 CBC WITH DIFFE RENTI AL/PL ATELE T immature grans (abs) 0.0 x10e3 /uL 0.0-0. 1 Not Available [facility] ([facility]) [address] [place], [address], 07/06/2024 07:13:25 07/06/19 25 07/06/2024 PROST ATE-S PECIF IC AG prostate specific Ag 1.9 NG/mL 0.0-4. 0 Evan ECLIA metho dolog y. Accor ding to the Ameri can Urolo gical Assoc iatio n, Serum PSA shoul d decre ase and remai n at undet ectab le level s after radic al prost atect brandyn. The AUA defin es bioch emica l recur rence as an initi al PSA value 0.2 ng/mL or great er follo wed by a subse quent confi rmato ry PSA value 0.2 ng/mL or great er. Value s obtai stanley with diffe rent assay metho ds or kits canno t be used inter sosa eably . Resul ts canno t be inter prete d as absol anvik evide nce of the prese nce or absen ce of [facility] se. Not Available [facility] ([facility]) [address] [facility], [place], [address], 07/06/2024 07:13:26 08/08/1908/07/2024 COLOG UARD cologuard result reportable NEGATI VE negati ve normal The Colog uard Plus (TM) test was perfo rmed on this speci men. NEGAT ENRIQUE TEST RESUL T. A negat enrique (norm al) Colog uard Plus resul t means the patie nt has a less- than- avera ge chanc e of havin g color ectal cance r (CRC) or advan megan preca ncer (poly ps or lesio ns that could becom e cance r). Negat enrique is the aliya l value (refe rence range ) for this assay . Guide lines recom mend scree uyen again 3 years after a negat enrique Colog uard Plus resul t. Jose nued scree uyen incre ases the chanc e of findi ng CRC early or preve nting it entir joao. A clini kathleen valid ation study showe d the Colog uard Plus test is effec tive at [facility] out CRC. Out of every 10,00 0 patie nts testi ng negat enrique, appro ximat joao 2 will be false ly reass ured that they do not have CRC, and out of every 100 patie nts testi ng negat enrique, appro ximat joao 7 patie nts will be false ly reass ured they do not have advan megan preca ncer. TEST DESCR IPTIO N: The Colog uard Plus test is a multi -targ et stool DNA (mt-s DNA) test that harjeet zes DNA and hemog lobin bioma rkers in stool . It uses a propr ietar y algor ithm to quali tativ joao detec t CRC and advan megan preca ncer. It is FDA-a pprov ed and indic ated for use in adult s 45 years or older at [facility] risk for CRC. A posit enrique (abno rmal) resul t shoul d be follo wed by a colon oscop y. Patie nts with a negat enrique (norm al) resul t shoul d scree n again in 3 years . False posit enrique and false negat enrique resul ts may occur . The USPST F recom mends the Colog uard test as a CRC scree uyen optio n. Their model ing estim ates that scree uyen with the test every 3 years from ages 45-85 could preve nt up to 73% of CRC and avoid up to 85% of CRC s. A 18,91 1-pat ient clini kathleen trial found the Colog uard Plus test effec tivel y detec ts CRC and preca ncer. The study found the test was 95% sensi tive for CRC, 43% sensi tive for advan megan preca ncer, and had a 91% speci ficit y ([facility] joann [place] ure. [employer] [employer] ratio n. [place], [place] Visit www.[facility] [employer] /abou t/acc uracy -sens itivi ty-sp [facility] for more test infor matio n, refer xochitl bergeron ngs, and preca ution s. Not Available [facility] ([facility]) [address], [place], [address], 08/14/2024 03:46:35 03/26/19 25 03/23/2024 XR, shoul loida, 2 or more view No observ ation record ed. [facility] [address] [facility] [address], [place], [address], 03/30/2024 16:34:49 Result Notes None recorded. Problems Name Problem SNOMED Code Status Onset Date Resolution Date Notes Provider Name and Address Organization Details Recorded Time Benign essential hypertension 4846199 Active 2023 DALE Brar Attn: Jarrod moore,[address] [facility], [place], [address], [place] 4 00:20:49 Hyperlipidemia 44703227 Active 2023 DALE Brar Attn: Accountin g,[address] [facility], [place], [address], [place] 4 00:20:49 Type 2 diabetes mellitus without complication 898555630 Active 2023 DALE Brar Attn: Accountin g,[address] [facility], [place], [address], [place] 4 00:20:51 Body mass index 25-29 - overweight 861875057 Active 2023 Shala Aden [place] null, [place] [facility] 4 09:04:24 Long-term drug therapy Active 2023 DALE Brar Attn: Accountin g,[address] [facility], [place], [address], [place] [facility] 4 23:19:39 Problem Notes None recorded. Medical Equipment None Reported. Allergies No known drug allergies Medications Name Sig Start Date Stop Date Status Note LastModified by Organization Details LastModified Time doxycycli ne hyclate 100 mg capsule 06/30 completed Not Available Not Available Not Available triamcino lone acetonide 0.5 % topical cream APPLY TOPICALL Y TO RASH TWICE DAILY FOR 4 WEEKS. STOP FOR 2 WEEKS BEFORE RESTARTI NG NO FACE active Not Available Not Available No t Available azithromy leroy 250 mg tablet 06/30 completed Not Available Not Available Not Available benzonata te 200 mg capsule TAKE 1 CAPSULE BY MOUTH THREE TIMES DAILY FOR COUGH 06/21 completed Not Available Not Available Not Available prednison e 20 mg tablet TAKE 2 TABLETS BY MOUTH DAILY WITH FOOD FOR 5 DAYS. DO NOT TAKE WITH ASPIRIN OR NSAIDS SUCH ALEVE OR IBUPROFE N ETC 06/21 completed Not Available Not Available Not Available tramadol 50 mg tablet 06/30 completed pain Not Available Not Available Not Available amoxicill in 875 mg tablet Take 1 tablet every 12 hours by oral route. 03/22 completed Not Available Not Available Not Available tamsulosi n 0.4 mg capsule 12/28 completed prostate Not Available Not Available Not Available cephalexi n 500 mg capsule 06/30 completed Not Available Not Available Not Available oseltamiv ir 75 mg capsule TAKE 1 CAPSULE BY MOUTH TWICE DAILY FOR 5 DAYS 06/21 completed Not Available Not Available Not Available fluoromet holone 0.1 % eye drops,elly pension 06/30 completed Not Available Not Available Not Available methylpre dnisolone 4 mg tablets in a dose pack 06/30 completed Not Available Not Available Not Available cefdinir 300 mg capsule 06/30 completed Not Available Not Available Not Available irbesarta n 300 mg tablet Take 1 Tablet (300 mg) by mouth daily. active Not Available Not Available No t Available amoxicill in 875 mg-potass ium clavulana te 125 mg tablet TAKE 1 TABLET BY MOUTH EVERY 12 HOURS 06/21 completed Not Available Not Available Not Available rosuvasta tin 10 mg tablet Take 1 Tablet (10 mg) by mouth daily. 2024 active Not Available Not Available Not Avai lable tadalafil 5 mg tablet TAKE 1 TABLET BY MOUTH DAILY active Not Available Not Available No t Available tadalafil 5mg daily 06/21 completed Not Available Not Available Not Available silodosin 8 mg capsule active Not Available Not Available Not Available Xyosted 50 mg/0.5 mL subcutane ous auto-inje ctor inject 50mg SUBCUTAN EOUSLY EVERY WEEK 06/30 completed Not Available Not Available Not Available Xyosted 75 mg/0.5 mL subcutane ous auto-inje ctor INJECT 75mg SUBCUTAN EOUSLY EVERY WEEK active Not Available Not Available No t Available Vitals Date Recorded Body height Body mass index (BMI) Body weight Respiratory rate Oxygen saturation Oxygen saturation in Arterial blood by Pulse oximetry Heart rate Systolic And Diastolic Provider Name and Address Organization Details Last Updated DateTime 5 172.72 cm 26.3 kg/m2 93927.4 8 g 18 /min 100 % 100 % 67 /min 126/82 mm[Hg] Shala Aden MA [facility] 09:00:12 Date Recorded Systolic And Diastolic Provider Name and Address Organization Details Last Updated DateTime 06/21/2024 122/80 mm[Hg] DALE Brar Attn: Accounting,[address] [place], [address], [facility] 06/21/2024 09:16:05 Date Recorded Body mass index (BMI) Body weight Oxygen saturation Oxygen saturation in Arterial blood by Pulse oximetry Heart rate Systolic And Diastolic Provider Name and Address Organization Details Last Updated DateTime 5 25.5 kg/m2 84311.5 2 g 98 % 98 % 60 /min 142/80 mm[Hg] Shala Aden MA [facility] 5 09:00:45 Date Recorded Body height Provider Name an d Address Organization Details Last Updated DateTime 06/21/2024 172.72 cm Clarice Gudino [facility] 06/22/19 08:52:21 Date Recorded Systolic And Diastolic Provider Name and Address Organization Details Last Updated DateTime 07/01/2023 134/70 mm[Hg] DALE Brar Attn: Accounting,[address] [place], [address], [facility] 07/01/2023 10:53:41 Date Recorded Body weight Body mass index (BMI) Body height Respiratory rate Oxygen saturation Oxygen saturation in Arterial blood by Pulse oximetry Heart rate Systolic And Diastolic Provider Name and Address Organization Details Last Updated DateTime 4 08994.6 2 g 25.3 kg/m2 172.72 cm 20 /min 99 % 99 % 57 /min 122/68 mm[Hg] Shala Aden MA [facility] 10:23:34 Date Recorded Systolic And Diastolic Provider Name and Address Organization Details Last Updated DateTime 12/29/2023 130/80 mm[Hg] DALE Brar Attn: Accounting,[address] [facility], [place], [address], [facility] 12/29/2023 09:19:33 Date Recorded Body height Body mass index (BMI) Body weight Respiratory rate Oxygen saturation Oxygen saturation in Arterial blood by Pulse oximetry Heart rate Systolic And Diastolic Provider Name and Address Organization Details Last Updated DateTime 172.72 cm 25.6 kg/m2 38788.7 3 g 20 /min 99 % 99 % 53 /min 126/82 mm[Hg] Shala Aden MA [facility] 09:05:50 Social History Question Answer Notes LastModified by [email or web address] ion Details LastModified Time Tobacco Smoking Status Never Smoker Shala Aden MA null, [facility] 07/01/2023 10:20:03 Do You Have An Advance Directive? Yes Will/ Information n ot available 12/29/2023 Are You Blind Or Do You Have Difficulty Seeing? No Information n ot available 07/01/2023 What Is Your Level Of Caffeine Consumption? Occasional Tea Information not available 07/01/2023 In The 14 Days Before Symptom Onset, Have You Had Close Contact With A Laboratory-confirm ed COVID-19 While That Case Was Ill? No Information n ot available 06/30/2023 In The 14 Days Before Symptom Onset, Have You Had Close Contact With A Person Who Is Under Investigation For COVID-19 While That Person Was Ill? No Information not available 06/30/2023 Have You Been To An Area Known To Be High Risk For COVID-19? No Information not available 06/30/2023 Are You Deaf Or Do You Have Serious Difficulty Hearing? No Information not available 07/01/2023 What Type Of Diet Are You Following? REGULAR Information n ot available 07/01/2023 Are There Any Guns Present In Your Home? No Information not available 07/01/2023 What Was The Date Of Your Most Recent Tobacco Screening? 06/21/2024 [email or web address] Information not available 06/21/2024 What Is Your Relationship Status? Information not available 07/01/2023 Do You Use Your Seat Belt Or Car Seat Routinely? Yes Information not available 06/30/2023 Do You Have Smoke And Carbon Monoxide Detectors In Your Home? Yes Information not available 06/30/2023 Do You Use Sunscreen Routinely? No Information not available 07/01/2023 Has Tobacco Cessation Counseling Been Provided? Yes Information not available 06/30/2023 On What Date Was Tobacco Cessation Counseling Provided? 06/21/2024 [email or web address] Information not available 06/21/2024 Sex: Male Functional Status Question Answer Note LastModified by Organizat ion Details LastModified Time Do you use any illicit or recreational drugs? No Information not available 07/01/2023 Do you or have you ever used any other forms of tobacco or nicotine? No Information not available 07/01/2023 What is your level of alcohol consumption? None Information not available 07/01/2023 Are you able to care for yourself independently? Yes Information not available 07/01/2023 What is your exercise level? Moderate 2x a week Information not available 07/01/2023 Mental Status None recorded. Family History Relationship Description Onset Age of this Age Resolved Age Notes LastModified by Organization Details LastModified Time Mother Dementia [email or web address] Not availabl e 07/01/2023 11:12:30 Mother Hypertensive disorder [email or web address] Not available 2023 11:12:38 Father Hypertensive disorder [email or web address] Not available 2023 11:12:38 Medical History Condition Response Coronary Artery Disease N Other N High Blood Pressure Y Atrial Fibrillation N Kidney or Bladder Problems N Thyroid Problems N GI Problems N Depression N COPD N Blood Clots N Skin Problems N Anemia N Heart Attack ([place]) N Anxiety Disorder N Diabetes N Muscle, Joint, or Bone Problems N Seizures/Epilepsy N Acid Reflux (GERD) N Cancer N Stroke N Asthma N Allergies N High Cholesterol Y Hepatitis N Liver Disease N Headaches N Heart Failure N Osteoporosis N Immunizations Vaccine Type Date Status Note Provider Nam e and Address Organization Details Recorded Time Influenza, high-dose, quadrivalent, PF 3 completed Shala Aden [place], [place] [facility] 12/28/2023 10:02:15 Influenza, high-dose, quadrivalent, PF 1 completed Shala Ad[place] [facility] 12/28/2023 10:02:15 Influenza, adjuvanted, quadrivalent, PF 2 completed Shala [place] [facility] 12/28/2023 10:02:15 COVID-19, mRNA, LNP-S, PF, 30 mcg/0.3 mL dose 1 completed Shala [place] [facility] 12/28/2023 10:02:15 COVID-19, mRNA, LNP-S, PF, 30 mcg/0.3 mL dose 1 completed Shala [place] [facility] 12/28/2023 10:02:15 COVID-19, mRNA, LNP-S, PF, 30 mcg/0.3 mL dose 1 completed Shala [place] [facility] 12/28/2023 10:02:15 COVID-19, mRNA, LNP-S, PF, 30 mcg/0.3 mL dose, suni-sucrose 2 completed Shala [place] [facility] 12/28/2023 10:02:15 COVID-19, mRNA, LNP-S, bivalent, PF, 30 mcg/0.3 mL dose 2 completed Shala [place] [facility] 12/28/2023 10:02:15 RSV, recombinant, protein subunit RSVpreF, adjuvant reconstituted, 0.5 mL, PF 4 completed SARAH [place] [facility] 12/28/2023 10:02:15 COVID-19, mRNA, LNP-S, PF, suni-sucrose, 30 mcg/0.3 mL 3 completed SAR[place] [facility] 12/28/2023 10:02:15 Tdap 7 [place] SAR[place] [facility] 12/28/2023 10:02:15 Influenza, split virus, trivalent, preservative 4 completed SAR[place] [facility] 12/28/2023 10:02:15 Influenza, split virus, trivalent, preservative 3 completed SAR[place] [facility] 12/28/2023 10:02:15 Past Encounters Encounter ID Performer Location Encounter Start Date Encounter Closed Date Diagnosis/Indication Diagnosis SNOMED-CT Code Diagnosis ICD10 Code Diagnosis Note [id number] Shawn Feliz MD [facility] Issue [address] [place] [id number] 07/01/2023 10:09:56 07/01/2023 11:05:11 Hyperlipidemia 89333754 E78.5 continue rosuvastat in 10mg daily. due for labs again in Dec Benign ess ential hypertension 9740838 I10 stable on irbesartan 300mg daily. Long-term drug therapy 472455636 Z79.899 cbc, cmp due in dec. Type 2 foreign betes mellitus without complication 193610203 E11.9 6.6% a1c. stable . diet controlled . repeat labs in Dec. [id number] Shawn Feliz MD [facility] [address] [employer] [id number] 12/29/2023 08:57:00 12/29/2023 14:37:06 Body mass index 25-29 - overweight [id number] Z68.25 BMI is 25.6 Overweight [id number] E66 .3 There is no concern with his weight at BMI of 25.6. He is eating healthy and exercising routinely Type 2 foreign betes mellitus without complication [id number] E11.9 6.2% a1c. stable . diet controlled . Next A1c due in June Hyperlipidemia 88045208 E78.5 continue rosuvastat in 10mg daily. Fasting labs due again in June Benign ess ential hypertension 7167363 I10 stable on irbesartan 300mg daily. Long-term drug therapy [id number] Z79.899 Next lab set is due in June of 2024 Screening for malignant neoplasm of prostate [id number] Z12.5 Annual PSA is due in June of 2024 [id number] Shawn Feliz MD [facility] Issue [address] [employer] [id number] 03/22/2024 08:52:10 03/22/2024 09:28:42 Bilateral shoulder joint pain [id number] M25.511 M25.512 Check baseline x-ray of the shoulders bilaterall y. Discussed referring patient to orthopedic surgeon of his choice he will notify us of this after x-rays Clavicle pain [id number] M25.519 Check x-ray of the clavicle bilaterall y [id number] Shawn Feliz MD [facility] Issue [address] [place] [address] 06/21/2024 08:49:44 06/21/2024 10:17:01 Body mass index 25-29 - overweight [id number] Z68.25 BMI is 25.5 Type 2 foreign betes mellitus without complication [id number] E11.9 6.2% a1c on the last labs in December. stable . diet controlled . Updated A1c ordered Hyperlipidemia 59656371 E78.5 continue rosuvastat in 10mg daily. Due now for a fasting lipid Benign ess ential hypertension 3716623 I10 stable on irbesartan 300mg daily. 122/80 on exam Overweight 805501237 E66 .3 There is no concern with his weight at BMI of 25.6. He is eating healthy and exercising routinely Long-term drug therapy 558818002 Z79.899 Full panel of labs is due fasting Screening for malignant neoplasm of prostate 036765219 Z12.5 Annual PSA is due Screening for malignant neoplasm of colon 541862355 Z12.11 Patient opts for Cologuard screening method Health Concerns Section Related Observation LastModified by Organization Detai ls LastModified Time None Recorded Concern Status LastModified by Organization Details LastModified Time None Recorded Advance Directives Directive Y: will/ Payers Insurance Date Sequence Insurance Name Policy Number Policy Buenrostro Covered Member ID Buenrostro Member ID Guarantor Name 07/01/2023 1 [employer] Cal Tanner [id number] ramila Tanner 07/01/2023 1 [employer] - PRIME (MEDICARE REPLACEMENT/AD VANTAGE - HMO) Cal Tanner [id number] Ramez Tanner 07/01/2023 3 [place] [facility] Cal Tanner [id number] Ramez Tanner 07/01/2023 1 [employer] Cal Tanner [id number] ramila Tanner 06/21/2024 [place] [facility] Ramez Tanner [id number] Ramez Tanner 07/09/2024 2 [employer] Cal Tanner [id number] D ramila Tanner 07/07/2023 3 [place] WHEN MEDICARE OR MEDICARE REPLACEMENT PRIMARY) Cal Tanner [id number] Ramez Tanner 07/01/2023 1 [employer] (HMO) Cal Tanner [id number] Ramez Tanner 07/09/2024 1 [place] Cal Tanner [id number] Ramez Tanner
--- OUTSIDE RECORDS SUMMARY | 2024-10-01 13:33 | XMS_ITS | Encounter Summary ---
Author Organization [facility] Address [address] [place] [address] Care Team Providers Care Stereo Map Plotter Operator Name Role Phone Karen Bond Primary Care Pr ovider Encounter Details Date Type Department Care Team (Late st Contact Info) Description 11/25/2022 Lab Requisition [facility] - DermPath Lab [address] [place] [id number] Cortes Walls MD [address] [address] Social History Tobacco Use Types Packs/Day Years Used Date Smoking Tobacco: Never Assessed Sex and Gender Information Value Date Recorded Sex Assigned at Not on file 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 Gender Identity Not on file Sexual Orientation Not on file documented as of this encounter Plan of Treatment Not on file documented as of this encounter Procedures Procedure Name Priority Date/Time Associated Diagnosis Comments DERMATOPATHOLOGY Routine 11/22/2022 12:0 0 AM CDT documented in this encounter Results * DERMATOPATHOLOGY (11/22/2022 12:00 AM CDT) Case Report Dermatopathology Report Case: [id number] Authorizing Provider: Cortes Walls MD Collected: 11/22/2022 12:00 AM Ordering Location: [facility] DermPath Lab Received: 11/25/2022 02:19 PM Pathologist: Elba Bolton MD Specimen: Skin, right chest 4:16 PM CDT DERMATOPATHOLOGY LABORATORY Final Diagnosis Specimen A. SKIN, right chest: MALIGNANT MELANOMA, SUPERFICIAL SPREADING TYPE BRESLOW THICKNESS 0.9 MM, ALFREDO LEVEL III PRESENT AT MARGIN (C43.59) (see microscopic description and synoptic table) Requires the attention of the treating physician. 3 4:16 PM T DERMATOPATHOLOGY LABORATORY at 1616 CDT Clinical History R/[place] [id number] 3 4:16 PM CDT DERMATOPATHOLOGY LABORATORY Gross Description Specimen A: Received is one formalin filled container labeled with the patient's name and designated right chest. The specimen consists of a shave biopsy measuring 6x5x1 mm. Jar 0. 4:16 PM CDT DERMATOPATHOLOGY LABORATORY Microscopic Description Specimen A. SKIN, right chest: There is a proliferation melanocytes distributed in an irregular pattern singly and in nests at all levels of the epidermis. In the dermis there are irregular nests and single scattered melanocytes. MART-1/Melan-A immunohistochemical stain highlights the melanocytes as above. This lesion is present at the margin of the specimen. 4:16 PM CDT DERMATOPATHOLOGY LABORATORY Disclaimer An external and internal positive and negative controls are appropriate for the histochemical, immunohistochemical and immunofluorescence stain(s) in this case (if any), except where stated explicitly. The performance characteristics of the stain(s) cited in this report were developed and its performance characteristic determined by the Dermatopathology Laboratory at [facility], directed by Dr. Lizzie Crews. These tests need not be, and therefore are not, approved by the [place] Food and Drug Administration. The tests are used for clinical purposes. Billing Codes Specimen Charges Stain Charges 19308 1 [id number] 1 3 4:16 PM CDT DERMATOPATHOLOGY LABORATORY Embedded Images 3 4:16 PM CDT DERMATOPATHOLOGY LABORATORY Synoptic Report MELANOMA OF THE SKIN: Biopsy MELANOMA OF THE SKIN: BIOPSY - All Specimens 8th Edition - Protocol posted: 05/27/2021 SPECIMEN Procedure: Biopsy, shave Specimen Laterality: Right TUMOR Tumor Site: Skin of trunk: right chest Histologic Type: Superficial spreading melanoma (low-cumulative sun damage (CSD) melanoma) Maximum Tumor (Breslow) Thickness (Millimeters): At least: 0.9 mm : tumor is present at the surgical margin;therefore, the final depth may exceed the current one. Ulceration: Not identified Anatomic (Alfredo) Level: At least level: III : tumor is present at the surgical margin;therefore, the final depth may exceed the current one. Mitotic Rate: None identified Microsatellite(s): Not identified Lymphovascular Invasion: Not identified Neurotropism: Not identified Tumor-Infiltrating Lymphocytes: Present, brisk Tumor Regression: Present MARGINS: Margin Status for Invasive Melanoma: Invasive melanoma present at margin Margin(s) Involved by Invasive Melanoma: Deep Margin Status for Melanoma in situ: Melanoma in situ present at margin Margin(s) Involved by Melanoma in Situ: Peripheral Margin(s) Involved by Melanoma in Situ: Deep PATHOLOGIC STAGE CLASSIFICATION (pTNM, AJCC 8th Edition): pT Category: pT1b Comment(s): This case was also reviewed by Dr. Virginia Lombardi, who agrees. 4:16 PM CDT DERMATOPATHOLOGY LABORATORY Pathology/Cytolog y TISSUE SPECIMEN FROM SKIN / Unknown 11/22/2022 11/25/2022 2:19 PM CDT Cortes Walls MD LAB - PATHOLOGY/CYTOLOGY ORDERABLES Final Result DERMATOPATHOLOGY LABORATORY [facility] - Department of Dermatology [facility] Medicine [address] [place] [address], [address] [phone] documented in this encounter Visit Diagnoses Not on filedocumented in this encounter Care Teams Stereo Map Plotter Operator Relationship Specialty Start Date End Date Karen Bond PA [address] [place] [address] PCP - General Physician Fire Safety Manager 12/06/22 documented as of this encounter
--- OUTSIDE RECORDS SUMMARY | 2024-10-01 13:33 | XMS_ITS | Clinical Summary ---
Author Organization [address] Address [address] [place] [phone] Care Team Providers Care Topography Technician Name Role Phone [place] Karen HUNTER Primary Care Pr ovider Allergies No known [...] Active Active Problems No known active problems Medical History Medical History Date Comments Hypercholesteremia Hypertension Family History Medical History Relation Name Comments No Known Problems Brother 1 No Known Problems Brother 2 No Known Problems Father No Known Problems Mother No Known Problems Sister 1 No Known Problems Sister 2 Relation Name Status Comments Brother 1 Alive Brother 2 Alive Father Mother Sister 1 Alive Sister 2 Alive Social History Tobacco Use Types Packs/Day Years Used Date Smoking Tobacco: Never Smokeless Tobacco: Never Tobacco Cessation:Counseling Given: No AUDIT-C Answer Date Recorded Q1: How often do you have a drink containing alcohol? Never 05/01/2024 Q2: How many drinks containi ng alcohol do you have on a typical day when you are drinking? Patient does not drink Q3: How often do you have si x or more drinks on one occasion? Never 05/01/2024 Sex and Gender Information Value Date Recorded Sex Assigned at Not on file Legal Sex Male 9:47 AM CDT Gender Identity Not on file Sexual Orientation Not on file Obstetrics History Last Filed Vital Signs Vital Sign Reading [...] 06/13/2024 8:14 AM CDT Plan of Treatment Health Maintenance Due Date Last Done Comments Colon Cancer Screening-Colonoscopy 1954 Depression Screening 1954 Fall Risk Assessment 1954 Hepatitis C Screening 1954 Prostate Cancer Screening-PSA 1954 Hepatitis B Screening 1972 Pneumococcal vaccine 65+ (1 of 2 - PCV) 1973 DTaP/Tdap/Td Vaccine (2 - Td or Tdap) 07/06/201604/2006 Well Visit 65+ 12/09/2019 Influenza Vaccine (#1) 2024 12/03/2013, 2012 Zoster Vaccine Completed 11/22/2018, 08/26/2018 Insurance MEDICARE [employer] SENIOR SUPPLEMENT Care Teams Topography Technician Relationship Specialty Start Date End Date Karen Donovan PA [address] [place] [address] PCP - General Physician Fire Control System Installer 04/05/24
--- OUTSIDE RECORDS SUMMARY | 2024-10-01 13:33 | XMS_ITS | Data Portability ---
Author Organization [place] - [facility] [employer], Main Office Address [address] [place] [address] Assessment Encounter Date Assessment Date Assessment LastModified by Organization Details LastModified Time 08/23/2022 08/23/2022 cologuard negative july 2021. Not available 08/23/2022 14:35:08 02/22/2023 02/22/2023 cologuard negative july 2021. Not available 02/22/2023 15:31:29 Plan of Treatment Reminders Order Date Submit Date Provider Last Modified By Organization Details Last Modified Time Details Appointments None recorded. Lab CBC w/ auto diff 2022 023 A[facility]KS [facility], [address] [facility], [facility], [place], [address], 3 09:40:13 hepatic function panel, serum 2022 023 [email or web address] 4 [facility], [address] [facility], [facility], [place], [address], 3 11:09:39 BMP, serum or plasma 2022 023 [facility], [address] [facility], [address], [place], [address], 3 09:40:13 TSH + free T4, serum 2022 023 A[facility]KS [facility], [address], [address], [place], [address], 3 09:40:13 HbA1c (hemoglobi n A1c), blood 2022 023 A[facility], [address] [facility], [facility], [place], [address], 3 09:40:13 lipid panel, serum 2022 023 [email or web address] 4 [facility], [address] [facility], [facility], [place], [address], 3 11:09:30 Referral None recorded. Procedures None recorded. Surgeries None recorded. Imaging None recorded. Medication Orders Medrol (Hiren) 4 mg tablets in a dose pack [email or web address] [facility], [address] [place] [address] , [place], [place], [id number], 3 12:37:16 cefdinir 300 mg capsule 2022 [email or web address] [facility], [address] [place] [address] , [place], [place], [id number], 3 12:37:08 Patient TargetsNo targets recorded. Patient InstructionsNo instructions recorded. Reason for Referral None Reported. Results Created Date Observation Date Name Description Value Unit Range Abnormal Flag Note LastModifiedBy Organization Detail LastModifiedTime 06/24/19 22 06/30/2021 HLA B 27 DISEA SE ASSOC IATIO N hla-B27 negati ve HLA-B *27 Negat enrique B27 allel e inter preta tion for all loci based on IMGT/ HLA datab ase versi on This test was devel oped and its perfo rmanc e rosalie cteri stics deter mined by [facility]. It has not been clear ed or appro gay by the Food and Drug Admin istra tion. HLA Lab CLIA ID Belinda r [id number] This test was perfo rmed using PCR (Poly meras e Chain React ion)/ SSOP (Sequ ence Speci fic Oligo nucle otide Probe s) techn ique. SBT (Sequ ence Based Typin g) and/o r SSP (Sequ ence Speci fic Prime rs) may be used as suppl ement al metho ds when neces vijaya. Pleas e conta ct HLA Cust[facility] nic[facility] ce at [phone] if you have any quest ions. Direc tor of HLA Labor atory Dr Cristhian Das, PhD Not Available [facility] ([facility]) [address] [facility], [place], [address], 06/30/2021 20:08:29 07/21/19 22 07/20/2021 COLOG UARD cologuard result reportable negati ve negati ve NEGAT ENRIQUE TEST RESUL T. A negat enrique Colog uard resul t indic ates a low likel ihood that a color ectal cance r (CRC) or advan megan adeno ma (darling omato us polyp s with more advan megan pre-m align ant featu res) is prese nt. The chanc e that a perso n with a negat enrique Colog uard test has a color ectal cance r is less than 1 in 1500 (nega tive predi ctive value >99.9 %) or has an advan megan adeno ma is less than 5.3% (nega tive predi ctive value 94.7% ). These data are based on a prosp ectiv e cross -sect ional study of 10,00 0 indiv idual s at [facility] risk for color ectal cance r who were scree stanley with both Colog uard and colon oscop y. (Sandra Paula et al, N Engl J Med 2014; 370(1 4):12 86-12 97) The constantino l value (refe rence range ) for this assay is negat enrique. COLOG UARD RE-SC ELO NG RECOM MENDA TION: Perio dic color ectal cance r scree uyen is an impor tant part of preve ntive healt hcare for asymp tomat ic indiv idual s at [facility] risk for color ectal cance r. Follo wing a negat enrique Colog uard resul t, the Ameri can Cance r Socie ty and U.S. Multi -Soci ety Task Force scree uyen guide lines recom mend a Colog uard re-sc elo davey inter elena of 3 years . Refer ences : Ameri can Cance r Socie ty Guide line for Color ectal Cance r Scree uyen: https ://veronica w.can cer.o rg/ca ncer/ colon -rect al-ca ncer/ detec tion- diagn osis- stagi ng/ac s-rec ommen datio ns.ht ml.; Shyam DK, Azalia dodge CR, Fabrice lang JK, Color ectal Cance r Scree uyen: Recom menda tions for Physi cians and Patie nts from the U.S. Multi -Soci ety Task Force on Color ectal Cance r Scree uyen , Am Mariza weldonntsabrina rolog y 2017; 112:1 016-1 030. TEST DESCR IPTIO N: [place] site algor ithmi c harjeet sis of stool DNA-b rufino urbina with hemog lobin immun oassa y. Quant itati ve value s of indiv idual bioma rkers are not repor table and are not assoc iated with indiv idual bioma rker resul t refer ence range s. Colog uard is inten ded for color ectal cance r scree uyen of adult s of eithe r sex, 45 years or older , who are at [facility] for color ectal cance r (CRC) . Colog uard has been appro gay for use by the U.S. FDA. The perfo rmanc e of Colog uard was estab lishe d in a cross secti onal study of [facility] adult s aged 50-84 . Colog uard perfo rmanc e in patie nts ages 45 to 49 years was estim ated by franca-teresa bonilla harjeet sis of near- age group s. Colon oscop ies perfo rmed for a posit enrique resul t may find as the most clini deepali signi fican t lesio n: color ectal cance r [4.0% ], advan megan adeno ma (incl uding sessi le emigdio radha polyp s great er than or equal to 1cm diame ter) [20%] or non- advan megan adeno ma [31%] ; or no color ectal neopl pili [45%] . These estim ates are deriv ed from a prosp ectiv e cross -sect ional cirilo qiu study of 0 indiv idual s at [facility] risk for color ectal cance r who were scree stanley with both Colog uard and colon oscop y. (Sandra Paula et al, N Engl J Med 2014; 370(1 4):12 86-12 97.) Colog uard may produ ce a false negat enrique or false posit enrique resul t (no color ectal cance r or preca ncero us polyp prese nt at colon oscop y follo w up). A negat enrique Colog uard test resul t does not guara ntee the absen ce of CRC or advan megan adeno ma (pre- cance r). The curre nt Colog uard scree uyen inter elena is every 3 years . (Amer ican Cance r Socie ty and U.S. Multi -Soci ety Task Force ). Colog uard perfo rmanc e data in a 0 patie nt pivot al study using colon oscop y as the refer ence metho d can be acces sed at the follo wing locat ion: www.e xactl abs.c om/re sulmanpreet . Addit ional descr iptio n of the Colog uard test proce ss, warni ngs and preca ution s can be found at www.c ologu milo.c om. Not Available [facility] (Cologuard Orders Only) [address], [place], [address], 07/25/2021 13:50:44 06/20/19 22 06/19/2021 CT, chest , w/ contr ast No observ ation record ed. [id number] [facility] [address] [place], [address], 05/06/2022 00:35:01 06/24/19 22 06/18/2021 tread mill nucle ar stres s test (PROC ) No observ ation record ed. MIGRATION. Bobo Allison MD [address], [place], [address], 05/06/2022 00:35:01 08/01/19 22 07/24/2021 PFT, compl ete No observ ation record ed. MIGRATION. [facility] [address], [place], [address], 05/06/2022 00:35:01 03/03/20 22 07/17/2021 RF, upper gastr ointe shauna l tract , w/ contr ast PO No observ ation record ed. MIGRATION. [facility] [address], [place], [address], 05/06/2022 00:35:01 11/03/19 23 11/01/2022 imagi ng/di agnos tic resul t No observ ation record ed. [email or web address] [facility] [address] [place], [address], 11/02/2022 16:30:21 01/18/20 23 09/30/2022 CT, abdom en + pelvi s, w/ contr ast No observ ation record ed. [email or web address] [place], [address], 01/17/2023 15:17:50 Result Notes None recorded. Problems Name Problem SNOMED Code Status Onset Date Resolution Date Notes Provider Name and Address Organization Details Recorded Time Hypertensive disorder 79778303 Active 2021 Not Available [facility] 3 00:34:12 Hyperlipidemi a 58599134 Active 2021 Not Available [facility] 3 00:34:13 Benign essential hypertension 5578734 Active 2021 Not Available [facility] 3 00:34:12 Calcification of coronary artery 471238102 Active 2021 Not Available [facility] 3 00:34:12 Anxiety 90106502 Active 2021 Not Available [facility] 3 00:34:13 Chronic cough 35206103 Active 2021 Not Available [facility] 3 00:34:13 Ankylosis of spine 10942168 Active 2021 Not Available [facility] 3 00:34:12 Persistent cough 652982613 Active 2021 Not Available [facility] 3 00:34:12 Acute sinusitis 67442610 Active 2021 Not Available [facility] 3 00:34:12 COVID-19 313554166 Active 2021 Not Available [facility] 3 00:34:13 Male hypogonadism 51986593 Active 2021 Not Available [facility] 3 00:34:13 Slowing of urinary stream 69748434 Active 2021 Not Available [facility] 3 00:34:13 Hiatal hernia with gastroesophag eal reflux 706618799 Active 2021 Not Available [facility] 3 00:34:12 Hyperglycemia 83974350 Active 2022 Not Available [facility] 3 00:34:13 Type 2 diabetes mellitus without complication 696370573 Active 2022 DALE Brar [address], [place], [address] , [employer] 3 14:46:30 Acute left otitis media 835367018 Active 2022 DALE Brar [address], [address], [place], [address] , [employer] 3 14:51:56 Chronic recurrent sinusitis 944722422 Active 2022 DALE Brar [address], [place], [address] , [employer] [facility] 3 15:14:40 Problem Notes None recorded. Medical Equipment None Reported. Allergies No known drug allergies Medications Name Sig Start Date Stop Date Status Note LastModified by Organization Details LastModified Time doxycycline hyclate 100 mg capsule Take 1 capsule twice a day by oral route with meals. 02/21 completed Not Available Not Available Not Available azithromyci n 250 mg tablet TAKE 2 TABLETS (500 MG) BY ORAL ROUTE ONCE DAILY FOR 1 DAY THEN 1 TABLET (250 MG) BY ORAL ROUTE ONCE DAILY FOR 4 DAYS 08/23 completed Not Available Not Available Not Available prednisone 20 mg tablet 08/23 completed Not Available Not Available Not Available tramadol 50 mg tablet 02/22 completed Not Available Not Available Not Available amoxicillin 875 mg tablet Take 1 tablet every 12 hours by oral route. active Not Available Not Available No t Available tamsulosin 0.4 mg capsule active Not Available Not Available Not Available cephalexin 500 mg capsule 02/22 completed Not Available Not Available Not Available cefuroxime axetil 500 mg tablet Take 1 tablet every 12 hours by oral route. active Not Available Not Available No t Available methylpredn isolone 4 mg tablets in a dose pack take as directed starting 08-24-2202/21 completed Not Available Not Available Not Available cefdinir 300 mg capsule Take 1 capsule every 12 hours by oral route. 02/21 completed Not Available Not Available Not Available irbesartan 300 mg tablet TAKE ONE TABLET BY MOUTH ONCE DAILY active Not Available Not Available No t Available amoxicillin 875 mg-potassiu m clavulanate 125 mg tablet Take 1 tablet every 12 hours by oral route. 08/23 completed Not Available Not Available Not Available rosuvastati n 10 mg tablet Take 1 Tablet (10 mg) by mouth daily. active Not Available Not Available No t Available Accutane weekly 2021 active Not Available Not Available Not Avai lable Symbicort 160 mcg-4.5 mcg/actuati on HFA aerosol inhaler Inhale 2 puffs twice a day by inhalatio n route as directed. 08/23 completed Not Available Not Available Not Available clorazepate dipotassium 7.5 mg capsule Take 2 capsules every month by oral route as needed. 2021 active Not Available Not Available Not Avai lable Xyosted 50 mg/0.5 mL subcutaneou s auto-inject or INJECT 50MG SUBCUTANE OUSLY EVERY WEEK active Not Available Not Available No t Available Xyosted 75 mg/0.5 mL subcutaneou s auto-inject or 02/22 completed Not Available Not Available Not Available Vitals Date Recorded Body mass index (BMI) Body height Oxygen saturation Oxygen saturation in Arterial blood by Pulse oximetry Heart rate Respiratory rate Body temperature Body weight Systolic And Diastolic Provider Name and Address Organization Details Last Updated DateTime 2 25.6 kg/m2 172.72 cm 98 % 98 % 57 /min 16 /min 97.3 [degF] 88108.9 6 g 110/70 mm[Hg] Not Available [facility] 3 00:33:51 Date Recorded Body mass index (BMI) Body height Oxygen saturation Oxygen saturation in Arterial blood by Pulse oximetry Heart rate Respiratory rate Body temperature Body weight Systolic And Diastolic Provider Name and Address Organization Details Last Updated DateTime 2 26.1 kg/m2 172.72 cm 98 % 98 % 59 /min 16 /min 97.8 [degF] 76507.7 3 g 128/82 mm[Hg] Not Available [facility] 3 00:33:51 Date Recorded Body height Body temperature Body mass index (BMI) Body weight Heart rate Oxygen saturation Oxygen saturation in Arterial blood by Pulse oximetry Systolic And Diastolic Provider Name and Address Organization Details Last Updated DateTime 3 172.72 cm 98 [degF] 27.1 kg/m2 35294.4 4 g 57 /min 98 % 98 % 138/82 mm[Hg] Blanca Solis RN [place] - [place] [employer] [facility] 3 14:28:42 Date Recorded Body mass index (BMI) Body height Oxygen saturation Oxygen saturation in Arterial blood by Pulse oximetry Heart rate Respiratory rate Body temperature Body weight Systolic And Diastolic Provider Name and Address Organization Details Last Updated DateTime 2 26.6 kg/m2 172.72 cm 99 % 99 % 52 /min 16 /min 96.6 [degF] 61631.6 6 g 120/78 mm[Hg] Not Available [facility] 3 00:33:52 Date Recorded Body height Body mass index (BMI) Body weight Respiratory rate Oxygen saturation Oxygen saturation in Arterial blood by Pulse oximetry Heart rate Systolic And Diastolic Provider Name and Address Organization Details Last Updated DateTime 3 172.72 cm 26.2 kg/m2 44415.6 8 g 16 /min 98 % 98 % 64 /min 128/80 mm[Hg] PARAMJIT Jansen [place] - [facility] 3 15:27:07 Social History Question Answer Notes LastModified by Organizat ion Details LastModified Time Tobacco Smoking Status Never Smoker Not Available [facility] 05/06/2022 00:33:27 Do You Have An Advance Directive? Yes [id number] Information not available 05/06/2022 In The 14 Days Before Symptom Onset, Have You Had Close Contact With A Laboratory-confir med COVID-19 While That Case Was Ill? No [id number] Information not available 05/06/2022 In The 14 Days Before Symptom Onset, Have You Had Close Contact With A Person Who Is Under Investigation For COVID-19 While That Person Was Ill? No [id number] Information not available 05/06/2022 What Type Of Diet Are You Following? REGULAR [id number].[id number] Information not available 05/06/2022 Have There Been Any Changes To Your Family Or Social Situation? No [id number] Information not available 05/06/2022 Are There Any Guns Present In Your Home? No [id number] Information not available 05/06/2022 Do You Use Insect Repellent Routinely? No [id number] Information not available 05/06/2022 Do You Have A Medical Power Of Technical Photographer? Yes Francesca, [id number] Information not available 05/06/2022 What Is Your Relationship Status? MIGRATION.[id number] Information not available 05/06/2022 Do You Use Your Seat Belt Or Car Seat Routinely? Yes [id number] Information not available 05/06/2022 Do You Have Smoke And Carbon Monoxide Detectors In Your Home? Yes [id number].[id number] Information not available 05/06/2022 Do You Use Sunscreen Routinely? Yes MIGRATION.[id number] Information not available 05/06/2022 Have You Recently Traveled Abroad? No MIGRATION.[id number] Information not available 05/06/2022 Do You Have Any Dietary Restrictions? No MIGRATION.[id number] 2309 Information not available 05/06/2022 Sex: Unknown Functional Status Question Answer Note LastModified by Organizat ion Details LastModified Time Do you use any illicit or recreational drugs? No [id number] 026 Information not available 05/06/2022 Do you or have you ever used any other forms of tobacco or nicotine? No MIGRATION.[id number] 026 Information not available 05/06/2022 What is your level of alcohol consumption? None [id number].[id number] 026 Information not available 05/06/2022 Do you have transportation difficulties? No MIGRATION.[id number] 026 Information not available 05/06/2022 Are you able to walk? YESWOREST MIGRATION.[id number] 026 Information not available 05/06/2022 Do you have difficulty doing errands alone? No [id number].[id number] 026 Information not available 05/06/2022 Are you able to care for yourself independently? 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 No MIGRATION.[id number] 026 Information not available 05/06/2022 What is your exercise level? Occasional [id number].[id number] 026 Information not available 05/06/2022 Mental Status None recorded. Family History Relationship Description Onset Age of this Age Resolved Age Notes LastModified by Organization Details LastModified Time Mother Chronic deafness [id number] Not available 05/06/2022 00:33:42 Father Myocardial infarction [id number] Not available 05/06/2022 00:33:42 Maternal Grandmother Myocardial infarction [id number] Not available 05/06/2022 00:33:42 Paternal Grandfather Myocardial infarction [id number] Not available 05/06/2022 00:33:42 Paternal Grandmother Dementia [id number] Not available 05/06/2022 00:33:42 Medical History Condition Response SKIN PROBLEMS Y HYPERTENSION Y HIGH CHOLESTEROL / HYPERLIPIDEMIA Y Past Encounters Encounter ID Performer Location Encounter Start Date Encounter Closed Date Diagnosis/Indication Diagnosis SNOMED-CT Code Diagnosis ICD10 Code Diagnosis Note [id number] DALE Br[facility] Internal [facility] [place] [address] [place] [address] 06/08/2021 00:00:00 07/04/2021 10:58:26 [id number] Shawn Feliz MD [facility] Internal [facility] [place] [address] [place] [address] 07/06/2021 00:00:00 08/04/2021 23:27:46 [id number] DALE Brar [facility] Internal Med [place] [address] [place] [address] 02/18/2022 00:00:00 03/03/2022 20:00:22 [id number] DALE Brar [facility] Internal Med [place] [address] [place] [address] 08/23/2022 14:23:33 08/23/2022 14:50:22 Hyperlipidemia 75011599 E78.5 stable on crestor 10mg daily Type 2 foreign betes mellitus without complication 957014725 E11.9 6.2% stable. diet and exercise controlled Benign ess ential hypertension 0290440 I10 stable on irbesartan 300mg daily. Anxiety 03684361 F41.9 stable on clorazepat e PRN Long-term drug therapy 840328599 Z79.899 repeat labs in jan. Male hypogonadism 323015 06 E29.1 on testostero ne from specialist . Acute left otitis media 672443180 H66.92 start MDP and cefdinir 300mg bid course [id number] DALE Br[facility] Internal Med [place] [address] [place] [address] 02/22/2023 15:21:10 02/22/2023 16:08:22 Benign essential hypertension 7011928 I10 stable on irbesartan 300mg daily. Hyperlipidemia 43930157 E78.5 stable on crestor 10mg daily Type 2 foreign betes mellitus without complication 714280164 E11.9 diet and exercise controlled at 6.7% a1c though, discussed need to bring this down closer to 6% range Anxiety 99445278 F41.9 stable on clorazepat e PRN Male hypogonadism 749096 06 E29.1 on testostero ne from specialist . Long-term drug therapy 072901492 Z79.899 labs reviewed and [facility]TD Health Concerns Section Related Observation LastModified by Organization Detai ls LastModified Time None Recorded Concern Status LastModified by Organization Details LastModified Time None Recorded Advance Directives Directive Y: Payers Insurance Date Sequence Insurance Name Policy Number Policy Buenrostro Covered Member ID Buenrostro Member ID Guarantor Name 04/27/2024 1 [place] Cal Tanner [id number] Ramez Tanner 05/26/2024 2 [employer] (MEDICARE SUPPLEMENT) PLAN Teresa Tanner [id number] Ramez Tanner 04/27/2024 [facility] Ramez Tanner AETNA SR PLAN AETNA SR PLAN Ramez Tanner
--- OUTSIDE RECORDS SUMMARY | 2024-10-01 13:33 | XMS_ITS | Clinical Summary ---
Author Organization [facility] Address [address] [place] [address] Phone Care Team Providers Care Keyboard Teacher Name Role Phone Unavailable Primary Care Provider Unavailabl e Medications azithromycin (Zithromax Z-Hiren) 250 mg tablet TAKE 2 TABLETS (500 MG) BY MOUTH ONCE DAILY FOR 1 DAY THEN 1 TABLET (250 MG) BY MOUTH ONCE DAILY FOR 4 DAYS 6 Tablet 08/16/2022 6:07 PM CDT 08/16/2022 Active methylPREDNISol one (Medrol, Hiren,) 4 mg Tablets, Dose Pack Take as directed on package starting 08-24-22 21 Tablet 08/23/2022 2:18 PM CDT 08/23/2022 Active tadalafil (CIALIS) 5 mg tablet Take 1 Tablet (5 mg) by mouth daily. 30 Tablet 1 12/02/2022 10:08 AM CDT 12/01/2022 Active traMADoL (ULTRAM) 50 mg tablet Take 1 (one) tablet by mouth every 6 hours as needed for Pain 12 Tablet 01/11/2023 5:02 PM VENEREAL DISEASE INVESTIGATOR 01/11/2023 Active tamsulosin (FLOMAX) 0.4 mg capsule Take 1 Capsule (0.4 mg) by mouth daily at bedtime. 30 Capsule 1 02/05/2023 10:40 AM VENEREAL DISEASE INVESTIGATOR 02/04/2023 Active tadalafil (CIALIS) 5 mg tablet Take 1 Tablet (5 mg) by mouth daily. 30 Tablet 5 11/15/2023 6:15 PM CDT 03/18/2023 Active fluorometholone (FML) 0.1 % suspension Location: Right Eye. Apply one drop in affected eye 3 times a day 5 mL 1 06/26/2023 1:13 PM CDT 06/22/2023 Active rosuvastatin (CRESTOR) 10 mg tablet Take 1 Tablet (10 mg) by mouth daily. 90 Tablet 3 11/30/2023 12:47 PM CDT 08/29/2023 Active tadalafil (CIALIS) 5 mg tablet Take 1 Tablet (5 mg) by mouth daily. 30 Tablet 10/13/2023 10:55 AM CDT 10/12/2023 Active Irbesartan (AVAPRO) 300 mg tablet Take 1 Tablet (300 mg) by mouth daily. 90 Tablet 1 11/30/2023 12:47 PM CDT 11/29/2023 Active tadalafil (CIALIS) 5 mg tablet Take 1 Tablet (5 mg) by mouth daily. 30 Tablet 2 12/21/2023 12:22 PM CDT 12/01/2023 Active clobetasoL (TEMOVATE) 0.05 % Ointment Apply thin layer to affected area twice daily for 4 weeks, take two week break, and then twice a week for 4 months. No face. 60 Gram 3 01/05/2024 9:51 AM CDT 01/04/2024 Active silodosin (RAPAFLO) 8 mg Capsule Take 1 Capsule (8 mg) by mouth daily with a meal/food. 30 Capsule 1 01/28/2024 2:26 PM VENEREAL DISEASE INVESTIGATOR 01/26/2024 Active Social History Tobacco Use Types Packs/Day Years Used Date Smoking Tobacco: Never Assessed Sex and Gender Information Value Date Recorded Sex Assigned at Not on file Legal Sex Male 11:10 AM VENEREAL DISEASE INVESTIGATOR Gender Identity Not on file Sexual Orientation Not on file Plan of Treatment Health Maintenance Due Date Last Done Comments DIABETES ANNUAL FOOT EXAM 1972 DIABETES ANNUAL RETINAL EXAM 1972 DIABETES MICROALBUMIN ANNUAL SCREEN 1972 LDL CHOLESTEROL ANNUAL 1972 PNEUMOCOCCAL VACCINE 50+ YEA RS (1 of 2 - PCV) 1973 FIT-DNA Q 3 years 12/09/1999 FIT/FOBT Q 1 year 12/09/1999 Flex Sig/CT Colonography Q 5 years 12/09/1999 RSV VACCINE (60+ or ) (1 - Risk 60-74 years 1-dose series) 2014 DTAP/TDAP/TD VACCINES (2 - Td or Tdap) 07/06/2016 COLORECTAL SCREENING 04/29/2018 04/29/2008 Colorectal Cancer Screening 04/29/2018 DIABETES HBA1C Q 6 MONTHS 05/27/2021 11/27/2020 INFLUENZA VACCINE (#1) 2024 11/29/2020 ZOSTER VACCINE Completed 11/22/2018, 08/26/2018 Insurance RX [employer] (INTERNAL) [facility] [employer] Medicare Part D
--- OUTSIDE RECORDS SUMMARY | 2024-10-01 13:33 | XMS_ITS | Clinical Summary ---
Author Organization [facility] Address [address] [place] [address] Care Team Providers Care Vision Impaired Teacher Name Role Phone Pedro Brady DO Primary Care Provider + Allergies No known active allergies Medications clorazepate 7.5 MG tablet Take 1 tablet by mouth 3 (three) times daily as needed. 1 Active ACCUTANE 40 MG Cap Take 1 capsule by mouth weekly. Active rosuvastatin 10 MG tabletIndications:H yperlipidemia, unspecified hyperlipidemia type Take 1 tablet (10 mg total) by mouth nightly at bedtime. at bedtime 90 tablet 1 2 Active IRBESARTAN 300 MG tabletIndications:P rimary hypertension TAKE ONE TABLET BY MOUTH ONCE DAILY 90 tablet 1 2 Active Active Problems Problem Noted Date Diagnosed Date Primary hypertension 11/27/2020 Anxiety 11/27/2020 Acne vulgaris 11/27/2020 Hypogonadism in male 11/27/2020 Immunizations Immunization Administration Dates Next Due Fluzone High Dose - >Age 65 (Prefilled Syringe) 11/29/2020 Influenza Adult (Generic) 12/03/2013,12/20/2012 PFIZER COVID-19 (ORIGINAL FO RMULATION, PURPLE CAP) mRNA, LNP-S, PF, 30 MCG/0.3 ML DOSE 11/29/2020 Shingrix 11/22/2018,08/26/2018 Tdap (Generic) 07/06/2006 Family History Medical History Relation Comments Alzheimers Father Heart Attack Father Heart Disease Father Macular Degeneration Mother hearing loss Mother Epilepsy Sister Relation Status Comments Father Mother Sister Alive Social History Tobacco Use Types Packs/Day Years Used Date Smoking Tobacco: Never Smokeless Tobacco: Never Alcohol Use Standard Drinks/Week Comments Never 0 (1 standard drink = 0.6 oz pur e alcohol) PHQ-2 Answer Date Recorded PHQ-2 Score - If the patient scores above 3, please move on to questions 3-9 0 04/02/2021 Sex and Gender Information Value Date Recorded Sex Assigned at Not on file Legal Sex Male 1:55 PM CDT Gender Identity Not on file Sexual Orientation Not on file Occupation Industry Job Start Date Job End Date Not on file Not on file Not on file Not on file Last Filed Vital Signs Vital Sign Reading Time Taken Comments Blood Pressure 134/76 06/03/2021 9:18 AM CDT Pulse 56 06/03/2021 9:18 AM CDT Temperature 36.5 C (97.7 F) 06/03/2021 9:18 AM CDT Respiratory Rate 16 06/03/2021 9:18 AM CDT Oxygen Saturation 99% 06/03/2021 9:18 AM CDT Inhaled Oxygen Concentration - - Weight 76.7 kg (169 lb 3.2 oz) 06/03/2021 9:18 A M CDT Height 172.7 cm (5' 8) 06/03/2021 9:18 AM CDT Body Mass Index 25.73 06/03/2021 9:18 AM CDT Plan of Treatment Health Maintenance Due Date Last Done Comments Hepatitis C 1972 Pneumococcal Vaccine: 50+ Years (1 of 1 - PCV) 2004 DTaP, Tdap and Td Vaccines ( 2 - Td or Tdap) 07/06/2016 07/06/2006 Colorectal Cancer Screening Colonoscopy (10 Years) 04/29/2018 04/29/2008 Annual Medicare Wellness Visit 12/09/2019 COVID-19 Vaccine (4 - 2023-2 5 season) 2023 11/29/2020, 04/16/2020, 03/26/2020 RSV Immunization or 60+ Years (1 - 1-dose 75+ series) 2029 Zoster Vaccines Completed 11/22/2018, 08/26/2018 Meningococcal B Vaccine Aged Out No l onger eligible based on patient's age to complete this topic Meningococcal Vaccine Aged Out No lane antolin eligible based on patient's age to complete this topic RSV Immunizations Under 20 Months Aged Out No longer eligible b ased on patient's age to complete this topic Procedures Procedure Name Priority Date/Time Associated Diagnosis Comments COLONOSCOPY GENERIC (SCAN ORDER) 04/29/2008 from Last 3 Months or Most Recently Relevant to Health Maintenance Results * COLONOSCOPY GENERIC (04/29/2008) 04/29/2008 Narrative 04/29/2008 Ordered by an unspecified provider. us Documents Scanned SCANNING Final Result from Last 3 Months or Most Recently Relevant to Health Maintenance Insurance MEDICARE Care Teams Vision Impaired Teacher Relationship Specialty Start Date End Date Pedro Brady DO [address] [place] [phone] PCP - General FAMILY PRACTICE 11/27/20
== END 2024-10-01 13:22 | disposition home or self-care (01) ==
LOC: ANHSURGERY 13:29
PROVIDERS: PCP Physician Assistant; Visit Provider Otolaryngology
DX: Z01.818 Encounter for other preprocedural examination (principal); I10 Essential (primary) hypertension
CPT/HCPCS: 93005

== ENCOUNTER 2024-10-05 01:02 | Day surgery (SDC) | payer MEDICARE, SELFPAY ==
--- NOTE | 2024-09-28 13:08 | PC.NURSE ---
Report to the Outpatient Waiting Room, entrance under the green pavilion located off [facility], at time _6 AM on date _10/05/24 . Planned Procedure Time: __7:30 AM .? Time changes happen often and if your time is changed the preop area will call you the afternoon before. - You and your visitor will be asked to self-screen and do not enter if you have any COVID symptoms. Please call surgeon if you need to reschedule. - A mask is optional within the hospital at this time. Patients may have clear liquids (water, carbonated beverages, clear teas, apple juice) until 3 hours prior to surgery ( 4:30 AM)with a maximum of 20 ounces. - No food from midnight until time of surgery and no smoking, or chewing tobacco (or any form of nicotine). No chewing gum, candy or mints. Take only the following medications with a SIP of water on the morning of surgery: NONE DO NOT STOP ANY OF YOUR OTHER PRESCRIPTION MEDICATIONS PRIOR TO SURGERY EXCEPT THE FOLLOWING Hold all vitamins and supplements for 3 days per anesthesiologist. Medications to discontinue per physician NONE Please no make-up, nail luxembourgish, hairspray, perfume, deodorant, or body powder the day of surgery.? No jewelry (including any body piercings) or valuables the day of surgery, leave them at home.? Please take a shower or bath the night before, or the morning of, surgery with an antibacterial soap.? Wear comfortable, loose fitting clothing.? Children are encouraged to wear pajamas. - Jewelry must be removed prior to entering the operating room.? Rings and piercings that are not removed may be cut off. - The hospital will not accept responsibility for valuables.? - Please leave all valuables, including medications, at home the day of surgery. If you are going home after surgery, a licensed dumpcart driver must drive you home.? - NO public transportation without another adult if you receive anesthesia. - We recommend that an adult stay with you for 24 hours following discharge. - We also recommend that you do not drive, make important decision, drink alcoholic beverages, or take any drugs that were not prescribed by your health care provider for at least 24 hours after your discharge time. For Pediatric surgeries, we recommend two adults accompany the child home. Follow any additional instructions given to you from your surgeon. Telephone instructions given to __PATIENT and asked if any additional questions and then verbalized understanding. Patient advised to call surgeon office or pre surgery nurse liaison [phone] if any additional questions.
[2024-09-28 13:17] VITALS: BMI 25.5
[2024-10-05] VITALS (9 sets, daily range): BP systolic 125–162; BP diastolic 54–81; PULSE 48–58; RESP 10–20; TEMP 36.2–36.7; O2SAT 97–100
--- OUTSIDE RECORDS SUMMARY | 2024-10-05 01:08 | XMS_ITS | Clinical Summary ---
Author Organization [address] Address [address] [place] [id number] Care Team Providers Care Development System Efficiency Manager Name Role Phone [place] Karen HUNTER Primary [...] Insurance MEDICARE [employer] SENIOR SUPPLEMENT Care Teams Development System Efficiency Manager Relationship Specialty Start Date End Date Karen Donovan PA [address] [place] [address] PCP - General Physician Sorter/Assay Tech 04/05/24
--- OUTSIDE RECORDS SUMMARY | 2024-10-05 01:08 | XMS_ITS | Encounter Summary ---
Author Organization [facility] Address [address] [place] [address] Care Team Providers Care Chemistry Quality Control Technician Name Role Phone Karen Bond Primary Care Pr ovider Encounter Details Date Type Department Care Team (Late st Contact Info) Description 11/25/2022 Lab Requisition 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 Lab Received: 11/25/2022 02:19 PM Pathologist: [...] R/[place] [id number] 3 4:16 PM CDT DERMATOPATHOLOGY LABORATORY Gross [...] characteristic determined by the Dermatopathology Laboratory at [facility], directed by Dr. Lizzie Crews. These tests need not be, and therefore are not, approved by the [place] Food and Drug Administration. The tests are used for clinical purposes. Billing Codes Specimen Charges Stain Charges 66380 1 86458 1 3 4:16 PM CDT DERMATOPATHOLOGY LABORATORY [...] - PATHOLOGY/CYTOLOGY ORDERABLES Final Result DERMATOPATHOLOGY LABORATORY [facility] - Department of Dermatology Formerly [facility] [address] [place] [address], [address] [phone] documented in this encounter Visit Diagnoses Not on filedocumented in this encounter Care Teams Chemistry Quality Control Technician Relationship Specialty Start Date End Date Karen Bond PA [address] [place] [address] PCP - General Physician Bread Dumper 12/06/22 documented as of this encounter
--- OUTSIDE RECORDS SUMMARY | 2024-10-05 01:08 | XMS_ITS | Clinical Summary ---
Author Organization [facility] Address [address] [place] [address] Care Team Providers Care Outside Solar Sales Consultant Name Role Phone Karen Bond Primary Care Pr ovider Source Comments [facility],non-owned Affiliates and Associated Physician Practices is amultiple site organization consisting of ambulatory clinics and hospital sitesin [place], [place], [place] and [place]. This disclosure is being madepursuant to the Care Everywhere program and may not contain all information available regarding this patient. Last updated 17.[facility] Allergies No known active allergies Medications * [...] on file Legal Sex Male 6:05 AM COMPUTER PROGRAMMING SUPERVISOR Gender Identity Not on file Sexual Orientation Not on file Last Filed Vital Signs Vital Sign Reading Time Taken Comments Blood Pressure 112/69 02/06/2024 1:22 PM COMPUTER PROGRAMMING SUPERVISOR Pulse 66 02/06/2024 1:22 PM COMPUTER PROGRAMMING SUPERVISOR Temperature 36.6 C (97.9 F) 02/06/2024 1:22 PM COMPUTER PROGRAMMING SUPERVISOR Respiratory Rate 12 01/11/2023 11:45 AM COMPUTER PROGRAMMING SUPERVISOR Oxygen Saturation 95% 02/06/2024 1:22 PM COMPUTER PROGRAMMING SUPERVISOR Inhaled Oxygen Concentration - - Weight 76.7 kg (169 lb) 02/06/2024 1:22 PM COMPUTER PROGRAMMING SUPERVISOR Height 172.7 cm (5' 8) 02/06/2024 1:22 PM COMPUTER PROGRAMMING SUPERVISOR Body Mass Index 25.7 02/06/2024 1:22 PM COMPUTER PROGRAMMING SUPERVISOR Plan of Treatment Health Maintenance Due Date [...] to complete this topic Insurance MEDICARE AETNA Care Teams Outside Solar Sales Consultant Relationship Specialty Start Date End Date Karen Bond PA [address] [place] [address] PCP - General Physician Digital Printer 12/06/22
--- OUTSIDE RECORDS SUMMARY | 2024-10-05 01:08 | XMS_ITS | Clinical Summary ---
Author Organization [facility] Address [address] [place] [address] Phone Care Team Providers Care Dietist Name Role Phone Unavailable Primary Care Provider [...] for Pain 12 Tablet 01/11/2023 5:02 PM PRINCIPAL ASSOCIATE 01/11/2023 Active tamsulosin (FLOMAX) 0.4 mg capsule Take 1 Capsule (0.4 mg) by mouth daily at bedtime. 30 Capsule 1 02/05/2023 10:40 AM PRINCIPAL ASSOCIATE 02/04/2023 Active tadalafil (CIALIS) 5 mg tablet [...] meal/food. 30 Capsule 1 01/28/2024 2:26 PM PRINCIPAL ASSOCIATE 01/26/2024 Active Social History Tobacco Use Types Packs/Day Years Used Date Smoking Tobacco: Never Assessed Sex and Gender Information Value Date Recorded Sex Assigned at Not on file Legal Sex Male 11:10 AM PRINCIPAL ASSOCIATE Gender Identity Not on file Sexual Orientation [...]
--- OUTSIDE RECORDS SUMMARY | 2024-10-05 01:08 | XMS_ITS | Referral Summary ---
Author Organization [address] Address [address] [place] [address] Care Team Providers Care Email Marketer Name Role Phone Karen Donovan Primary Care [...] Insurance MEDICARE AET SENIOR SUPPLEMENT Care Teams Email Marketer Relationship Specialty Start Date End Date Karen Donovan PA [address] [place] [address] PCP - General Physician Swatch Folder 04/05/24
--- OUTSIDE RECORDS SUMMARY | 2024-10-05 01:08 | XMS_ITS | Clinical Summary ---
Author Organization [facility] Address [address] [place] [address] Care Team Providers Care Transportation Department Head Name Role Phone Pedro Brady DO Primary [...] to Health Maintenance Insurance MEDICARE Care Teams Transportation Department Head Relationship Specialty Start Date End Date Pedro Brady DO [address] [place] [phone] PCP - General FAMILY PRACTICE 11/27/20
[2024-10-05] MEDS: LACTATED RINGERS 1,000 ML 30 ML IV CONT ×2 (06:30→09:38)
[2024-10-05] MEDS: ACETAMINOPHEN 500 MG TABLET 1000 MG PO (07:12)
--- NOTE | 2024-10-05 07:17 | P.PNAN_ITS ---
Anes - Initial Pre Proc Eval Procedure: Operation Date: 10/05/24 07:30 Proposed Procedures p Image Guided Endoscopic Bilateral Maxillary Antrostomy, Bilateral Inferior Turbinate Reduction with Outfracture - Bebeto Barkley MD s Septoplasty - Bebeto Barkley MD Date/Time: 10/05/24 07:17 Surgeon: Bebeto Barkley MD Pre Op Diagnosis: tinnitus, deviated nasal septum, chr &recurr sinus Patient Data Age: 68 Gender: M Height: 1.73 m Weight: 77.6 kg Last Vital Signs Temp 36.7 C 10/05/24 07:13 Pulse 52 L 10/05/24 07:13 Resp 16 10/05/24 07:13 BP 138/65 10/05/24 07:13 Pulse Ox 100 10/05/24 07:13 O2 Del Method Room Air 10/05/24 07:13 Allergies Allergy/AdvReac Type Severity Reaction Status Date / Time No Known Allergies Allergy Unknown Unverified 10/05/24 07:10 Home Medications ?Medication ?Instructions ?Recorded ?Confirmed ?Type irbesartan 300 mg tablet 300 mg PO DAILY #5 tabs 07/10/20 09/28/24 Rx isotretinoin 10 mg capsule 40 mg PO WEEKLY 10/07/22 09/28/24 History (Accutane) rosuvastatin 10 mg tablet 10 mg PO HS 06/26/24 10/05/24 History tadalafil 5 mg tablet 5 mg PO DAILY 06/26/24 10/05/24 History Patient hx anesthesia problems: none Family hx anesthesia problems: none Results Review: All pre-operative results and documents have been reviewed as part of the pre- operative evaluation. [facility] Past Medical History Medical History Hypertension Subacute sinusitis Urinary hesitancy Fatigue Laceration of left hand without foreign body Insomnia with sleep apnea BPH NOS w ur obs/LUTS Night sweats Chronic fatigue (~07/2018) Irregular heart beat (~07/2019) URI, acute (~07/2018) Testicular hyperfunction NGUYỄN (obstructive sleep apnea) BANG (generalized anxiety disorder) Family History Family History Father Hypertension Heart disease Other Family history of coronary artery disease Social History Social History Smoking status: Never smoker Second hand tobacco smoke exposure: No Alcohol intake: never Substance use: never Substance use type: does not use Lack of Transportation: No Lack of Food: Never True Current Housing: I Have Housing Concerned About Future Housing: No Difficulty Paying Gas/Electric Bills: No Difficulty Paying for Meds: No Currently Unemployed: No Education: Bachelor's Degree Difficulty w/ Childcare or Family Care: No Gender identity (if verbalized by the patient): Male Anes - Eval Final PreProcedure Day of Procedure 10/05/24 07:17 Patient weight: overweight Heart: regular rate and rhythm Lungs: clear to auscultation Airway: Mallampati scale class II Neurological: alert and oriented Last oral intake: >/= 8 hours ASA classification: II Emergent: no Anesthetic plan: proceed Anesthesia type and monitoring: general ETT and standard monitoring Results Review: All pre-operative results and documents have been reviewed as part of the pre- operative evaluation. Informed Consent: The patient's anesthetic plan and its attendant risks and benefits were discussed with the patient/family/POA. Questions were solicited and answers provided to the satisfaction of the patient/family/POA.
--- NOTE | 2024-10-05 07:20 | WPDHPUPDATE1 ---
History and Physical Update Update Date/Time: 10/05/24 07:20 History and Physical has been reviewed, including an updated exam of the patient. There are NO changes in the patient's condition. Risks, benefits, and alternatives have been discussed and questions answered. Patient agrees to proceed with procedure.
[2024-10-05] MEDS: ceFAZolin 2 GM in SODIUM CHLORIDE 0.9% IV 50 ML 100 ML IVPB (07:29)
[2024-10-05] MEDS: LIDO 1%/EPINEPHRINE 1:100,000 50 ML VIAL INFILTRATE (08:00)
[2024-10-05] MEDS: OXYMETAZOLINE HCL 0.05% NAS 15 ML BTL (*BKC) 1 SPRAY NASAL (08:02)
[2024-10-05] MEDS: MUPIROCIN 2% OINT 22 GM TUBE 1 APPLIC TOPICAL (08:04)
--- NOTE | 2024-10-05 10:06 | PM.IMHP ---
H&P: HPI History of Present Illness Date/Time: 10/05/24 10:06 Chief Complaint: Obstruction right-sided septal deviation turbinate hypertrophy recurrent sinus infections presents for planned procedure. Review of Systems Review of Systems: All systems reviewed & are unremarkable except as noted in HPI and below PMFSH Past Medical History Medical History Hypertension Subacute sinusitis Urinary hesitancy Fatigue Laceration of left hand without foreign body Insomnia with sleep apnea BPH NOS w ur obs/LUTS Night sweats Chronic fatigue (~07/2018) Irregular heart beat (~07/2019) URI, acute (~07/2018) Testicular hyperfunction NGUYỄN (obstructive sleep apnea) BANG (generalized anxiety disorder) Family History Family History Father Hypertension Heart disease Other Family history of coronary artery disease Social History Social History Smoking status: Never smoker Second hand tobacco smoke exposure: No Alcohol intake: never Substance use: never Substance use type: does not use Lack of Transportation: No Lack of Food: Never True Current Housing: I Have Housing Concerned About Future Housing: No Difficulty Paying Gas/Electric Bills: No Difficulty Paying for Meds: No Currently Unemployed: No Education: Bachelor's Degree Difficulty w/ Childcare or Family Care: No Gender identity (if verbalized by the patient): Male Meds Home Medications and Allergies Home Medications ?Medication ?Instructions ?Recorded ?Confirmed ?Type irbesartan 300 mg tablet 300 mg PO DAILY #5 tabs 07/10/20 09/28/24 Rx isotretinoin 10 mg capsule 40 mg PO WEEKLY 10/07/22 09/28/24 History (Accutane) rosuvastatin 10 mg tablet 10 mg PO HS 06/26/24 10/05/24 History tadalafil 5 mg tablet 5 mg PO DAILY 06/26/24 10/05/24 History cefuroxime axetil 250 mg tablet 250 mg PO BID #20 tabs 10/05/24 Rx oxycodone 5 mg tablet 5 mg PO BID PRN pain #14 tabs 10/05/24 Rx Allergies Allergy/AdvReac Type Severity Reaction Status Date / Time No Known Allergies Allergy Unknown Unverified 10/05/24 07:10 Vital Signs Vital Signs - 24 hr 10/05/24 07:13 10/05/24 09:38 10/05/24 09:50 Temperature 36.7 C 36.2 C L Pulse Rate 52 L 58 L 55 L Respiratory Rate 16 10 L 12 Blood Pressure 138/65 151/68 H 125/62 Pulse Oximetry 100 100 100 Oxygen Delivery Room Air Simple Face Mask Simple Face Mask Oxygen Flow Rate 8 8 Exam Narrative: See previous exam from office note Assessment and Plan Assessment and plan (1) Deviated septum: Code(s): J34.2 - Deviated nasal septum Status: Acute Assessment and Plan: Plan or septoplasty endoscopic assisted, inferior turbinate reduction with outfracture, as well as bilateral image guided maxillary antrostomies. Risks were discussed bleeding infection damage to structures need further procedures change in taste change in swallow change in cosmetic appearance. The resolve symptoms especially valve issue or severe caudal deviation. Septal perforation. Total blindness CSF leak brain brain damage change in vision. Patient voiced understanding of these risks and agreed. (2) Hearing loss, bilateral: Code(s): H91.93 - Unspecified hearing loss, bilateral Status: Acute (3) Nasal septal deviation: Code(s): J34.2 - Deviated nasal septum Status: Acute (4) Hypertrophy of both inferior nasal turbinates: Code(s): J34.3 - Hypertrophy of nasal turbinates Status: Acute (5) Recurrent sinusitis: Code(s): J32.9 - Chronic sinusitis, unspecified Status: Acute
--- NOTE | 2024-10-05 10:12 | W.PM.PROC2 ---
Procedure Note - Detailed Date of Procedure 10/05/24 Pre-op Diagnosis deviated nasal septum, chr &recurr sinus Post-op Diagnosis Same Procedure Performed Endoscopic assisted septoplasty, inferior turbinate reduction bilaterally with outfracture, bilateral image guided endoscopic maxillary antrostomies Surgeon Bebeto Barkley MD Anesthesia General Indications See above Findings Severely deviated rightward nasal septum, severely hypertrophied bilateral inferior turbinates, minimal minimally disease bilateral maxillary sinuses Description of Procedure Patient identified consent verified the preoperative holding area. Patient brought to the operating room. Time-out performed. General anesthesia induced endotracheal tube secured airway. Patient was prepped draped position procedure confirmed 2nd time-out performed. Image guidance initiated confirmed. Total 15 cc 1% lidocaine with [id number] parts epinephrine injected in the bilateral nasal septum and inferior turbinates. [place] incision may a lead patient's left side left nasal septal flap elevated tear inferiorly almost like a relaxing tear no other tears in the flap I had to use had lightest is challenging the caudal septum was so deviated to cross over to the right side and raise a flap were several tears over these spurs none of the tears coincided to the best my knowledge with the tear inferiorly on the left nasal septal flap. Deviated septum removed Bella forceps Oneal Tsang forceps and osteotome. Much more straight septum. Minimal caudal deviation for severe prior. Inferior turbinates reduced in the inferior the submucosal plane with [employer] 1.9 mm debrider. Not really any tears good reduction they were then outfractured with a [place] elevator excellent reduction bilaterally. Bilateral image guided maxillary antrostomies performed course with image guidance double ball tip probe straight through cut backbiter and image guided microdebrider. Great care was taken to ensure that the natural os included the surgical os and that the no injury occurred to the nasal lacrimal duct orbit or septum. Blood loss 35 cc. [place] incision closed with 3 interrupted 5 0 fast gut sutures. [place] splints placed sutured anteriorly with 3-0 mattress nylon suture. I performed all dictated portions procedure no complications. Care the patient given back to Anesthesiology. Patient taken to PACU. Estimated Blood Loss 35 Drains No Packing No Pathology None sent Complications No immediate complications Condition Stable Disposition PACU [facility] Billing Surgery - Charge Forward: Surgery Billing
[2024-10-05] MEDS: fentaNYL CITRATE INJ (*CRX) 100 MCG/2 ML VIAL 25 MCG IV PUSH ×2 (10:25→10:29)
== END 2024-10-05 11:32 | disposition home or self-care (01) ==
PROVIDERS: PCP Physician Assistant; Visit Provider Otolaryngology
PROC: (CPT 30520; principal; 2024-10-05 07:30)
PROC: (CPT 30520; 2024-10-05 07:30)
DX: J34.2 Deviated nasal septum (principal); J32.0 Chronic maxillary sinusitis; J34.3 Hypertrophy of nasal turbinates; G89.18 Other acute postprocedural pain; I10 Essential (primary) hypertension; R39.11 Hesitancy of micturition; N40.1 Benign prostatic hyperplasia with lower urinary tract symptoms; I49.9 Cardiac arrhythmia, unspecified; E29.0 Testicular hyperfunction; G47.33 Obstructive sleep apnea (adult) (pediatric); F41.9 Anxiety disorder, unspecified; H91.93 Unspecified hearing loss, bilateral; G47.00 Insomnia, unspecified; R53.82 Chronic fatigue, unspecified; Z79.891 Long term (current) use of opiate analgesic; Z82.49 Family history of ischemic heart disease and other diseases of the circulatory system
CPT/HCPCS: 30520; 30140; 31256; 61782; J0690; A9270; J1596; J2003; J2004; J2250; J2704; J2710; J3010; J7050; J7120

== ENCOUNTER 2024-10-10 17:13 | Emergency (ER) | payer MEDICARE, SELFPAY ==
--- NOTE | ~2024-10-10 | CT_ITS ---
CLINICAL INDICATION: Right flank pain COMPARISON: None. TECHNIQUE: Multiple contiguous axial images of the abdomen and pelvis were performed without the admi nistration of intravenous contrast The dose-length product (DLP) was 219.27 mGy-cm. Automated exposure control and iterative reconstruction technique were employed. FINDINGS/OBSERVATIONS: Visualized lower thorax: The bilateral lung bases are clear. The heart is borderline enlarged, without pericardial effusion. Moderate hiatal hernia is present. Liver: The liver demonstrates homogeneously decreased attenuation (consistent with fatty infiltration) and i s not enlarged. Gallbladder and biliary system: The gallbladder is only minimally distended, and otherwise unremarkable. Pancreas: Limited evaluation of the pancreas secondary to the lack of intravenous contrast. Spleen: The spleen demonstrates homogeneous attenuation and is not enlarged. Kidneys: 5.6 mm calculus within the proximal right ureter. Global enlargement of the right kidney with moderat e right-sided hydronephrosis and proximal hydroureter. Multiple 3 and 4 mm nonobstructing calculi are identified within the bilateral kidneys. The largest is within the lower pole of the left kidney measuring 9.4 mm. Adrenal glands: Unremarkable. Gastrointestinal tract: Colonic diverticulosis without surrounding inflammatory change. Appendix: The appendix is of normal caliber (axial series, images 125 through 144) Vasculature: Unremarkable. Lymph nodes: Limited evaluation without intravenous contrast. Pelvic structures: The bladder is only minimally distended, and otherwise unremarkable. The prostate gland is not enlarged. Body wall and musculoskeletal: Small fat-containing umbilical hernia. Fat-containing left inguinal hernia. Age-appropriate degenerative disease within the lower thoracic and lumbosacral spines. IMPRESSION: Right-sided hydronephrosis and proximal hydroureter secondary to a 5.6 mm calculus within the proxima l right ureter. Reviewed, dictated and finalized at location A. IMPRESSION: Right-sided hydronephrosis and proximal hydroureter secondary to a 5.6 mm calcu pauline within the proximal right ureter.
--- OUTSIDE RECORDS SUMMARY | 2024-10-10 17:15 | XMS_ITS | Encounter Summary ---
Author Organization [facility] Address [address] [place] [address] Care Team Providers Care Enterer Name Role Phone Karen Bond Primary Care Pr ovider Encounter Details Date Type Department Care Team (Late st Contact Info) Description 11/25/2022 Lab Requisition [facility] - DermPath Lab [address], [place] [id number] Cortes Walls MD [address] [address] Social History Tobacco Use Types Packs/Day Years Used Date Smoking Tobacco: Never Assessed Sex and Gender Information Value Date Recorded Sex Assigned at Not on file 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 Gender Identity Not on file Sexual Orientation Not on file documented as of this encounter Plan of Treatment Not on file documented as of this encounter Procedures Procedure Name Priority Date/Time Associated Diagnosis Comments DERMATOPATHOLOGY Routine 11/22/2022 12:0 0 AM CDT documented in this encounter Results * DERMATOPATHOLOGY (11/22/2022 12:00 AM CDT) Case Report Dermatopathology Report Case: [id number] Authorizing Provider: Cortes Walls MD Collected: 11/22/2022 12:00 AM Ordering Location: [facility] Received: 11/25/2022 02:19 PM Pathologist: [...] R/[place] [id number] 4:16 PM CDT DERMATOPATHOLOGY LABORATORY Gross [...] characteristic determined by the Dermatopathology Laboratory at [facility], directed by Dr. Lizzie Crews. These tests need not be, and therefore are not, approved by the [place] Food and Drug Administration. The tests are used for clinical purposes. Billing Codes Specimen Charges Stain Charges 01877 1 85633 1 3 4:16 PM CDT DERMATOPATHOLOGY LABORATORY [...] - PATHOLOGY/CYTOLOGY ORDERABLES Final Result DERMATOPATHOLOGY LABORATORY [facility] - Department of Dermatology [facility] [address] [place] [address], [address] [phone] documented in this encounter Visit Diagnoses Not on filedocumented in this encounter Care Teams Enterer Relationship Specialty Start Date End Date Karen Bond PA [address] [place] [address] PCP - General Physician Director Credit Risk 12/06/22 documented as of this encounter
--- OUTSIDE RECORDS SUMMARY | 2024-10-10 17:15 | XMS_ITS | Clinical Summary ---
Author Organization [facility] Address [address] [place] [address] Care Team Providers Care Nc Manager Name Role Phone Pedro Brady DO Primary [...] to Health Maintenance Insurance MEDICARE Care Teams Nc Manager Relationship Specialty Start Date End Date Pedro Brady DO [address] [place] [address] PCP - General FAMILY PRACTICE 11/27/20
--- OUTSIDE RECORDS SUMMARY | 2024-10-10 17:15 | XMS_ITS | Clinical Summary ---
Author Organization [facility] Address [address] [place] [address] Phone Care Team Providers Care Manager Cleaning Name Role Phone Unavailable Primary Care Provider [...] for Pain 12 Tablet 01/11/2023 5:02 PM SALES ASSISTANT INSTITUTIONAL SALES 01/11/2023 Active tamsulosin (FLOMAX) 0.4 mg capsule Take 1 Capsule (0.4 mg) by mouth daily at bedtime. 30 Capsule 1 02/05/2023 10:40 AM SALES ASSISTANT INSTITUTIONAL SALES 02/04/2023 Active tadalafil (CIALIS) 5 mg tablet [...] meal/food. 30 Capsule 1 01/28/2024 2:26 PM SALES ASSISTANT INSTITUTIONAL SALES 01/26/2024 Active Social History Tobacco Use Types Packs/Day Years Used Date Smoking Tobacco: Never Assessed Sex and Gender Information Value Date Recorded Sex Assigned at Not on file Legal Sex Male 11:10 AM SALES ASSISTANT INSTITUTIONAL SALES Gender Identity Not on file Sexual Orientation [...]
--- OUTSIDE RECORDS SUMMARY | 2024-10-10 17:15 | XMS_ITS | Clinical Summary ---
Author Organization [address] Address [address] [place] [phone] Care Team Providers Care Problem Manager Name Role Phone Katidelano Karen HUNTER [...] Insurance MEDICARE AETNA SENIOR SUPPLEMENT Care Teams Problem Manager Relationship Specialty Start Date End Date Karen Donovan PA [address] [place] [address] PCP - General Physician Vacuum Evaporation Operator 04/05/24
--- OUTSIDE RECORDS SUMMARY | 2024-10-10 17:15 | XMS_ITS | Clinical Summary ---
Author Organization [facility] [employer] Address [address] [place] [address] Care Team Providers Care Nuclear Officer Name Role Phone Karen Bond Primary Care Pr ovider Source Comments [facility] [employer],non-owned Affiliates and Associated Physician Practices is amultiple site organization consisting of ambulatory clinics and hospital sitesin [place], [place], [place] and [place]. This disclosure is being madepursuant to the Care Everywhere program and may not contain all information available regarding this patient. Last updated 17.[facility] [employer] Allergies No known active allergies Medications * [...] on file Legal Sex Male 6:05 AM JAVA J2EE ARCHITECT Gender Identity Not on file Sexual Orientation Not on file Last Filed Vital Signs Vital Sign Reading Time Taken Comments Blood Pressure 112/69 02/06/2024 1:22 PM JAVA J2EE ARCHITECT Pulse 66 02/06/2024 1:22 PM JAVA J2EE ARCHITECT Temperature 36.6 C (97.9 F) 02/06/2024 1:22 PM JAVA J2EE ARCHITECT Respiratory Rate 12 01/11/2023 11:45 AM JAVA J2EE ARCHITECT Oxygen Saturation 95% 02/06/2024 1:22 PM JAVA J2EE ARCHITECT Inhaled Oxygen Concentration - - Weight 76.7 kg (169 lb) 02/06/2024 1:22 PM JAVA J2EE ARCHITECT Height 172.7 cm (5' 8) 02/06/2024 1:22 PM JAVA J2EE ARCHITECT Body Mass Index 25.7 02/06/2024 1:22 PM JAVA J2EE ARCHITECT Plan of Treatment Health Maintenance Due Date [...] this topic Insurance MEDICARE AETNA Care Teams Nuclear Officer Relationship Specialty Start Date End Date Karen Bond PA [address] [place] [address] PCP - General Physician Transmission And Protection Engineer 12/06/22
[2024-10-10 17:22] VITALS: BP 171/70; PULSE 64; RESP 20; TEMP 36.6; O2SAT 98
--- NOTE | 2024-10-10 17:27 | ED.ABDPAIN ---
HPI - Abdominal Pain General Chief Complaint: Abdominal Pain <Rene Patrick SanjeevAXEL mancuso - Last Filed: 10/10/24 17:28> Stated Complaint: right flank pain <Rene Patrick SanjeevAXEL mancuso - Last Filed: 10/10/24 17:28> Time Seen by Provider: 10/10/24 18:58 <Rene Patrick SanjeevNITA mancusoN - Last Filed: 10/10/24 17:28> Focused HPI: 68-year-old male presents to the ER complaining of right flank pain approximately 30 minutes ago. Patient says he has a history of renal stones was told the redness kidneys and a bur quite large. Patient does not know the exact size of his kidney stones. Patient also reports chills and nausea. Patient reports he is urinating without difficulty but does state he of history of a enlarged prostate. Patient denies any vomiting, diarrhea, fevers, body aches GENERAL: Well-appearing, well-nourished, and in no acute distress. HEAD: Normocephalic, atraumatic. CHEST: Clear to auscultation. ?No respiratory distress. HEART: Regular rate and rhythm.? NEURO: ?Alert and oriented x3. GI: Abdomen soft, distended, nontender to palpation. Bowel sounds are present. No guarding or rigidity. No rebound tenderness. No CVA tenderness. Patient screened in triage and initial orders placed.? ?Additional care and disposition to be based upon?diagnostic testing and treatment. <Rene Patrick SanjeevAXEL mancuso - Last Filed: 10/10/24 17:28> Focused HPI: 68-year-old male presents to the ER complaining of right flank pain approximately 30 minutes ago. Patient says he has a history of renal stones. Patient does not know the exact size of his kidney stones. Patient also reports chills and nausea. Patient reports he is urinating without difficulty but does state he of history of a enlarged prostate. Patient denies any vomiting, diarrhea, fevers, body aches GENERAL: Well-appearing, well-nourished, and in no acute distress. HEAD: Normocephalic, atraumatic. CHEST: Clear to auscultation. ?No respiratory distress. HEART: Regular rate and rhythm.? NEURO: ?Alert and oriented x3. GI: Abdomen soft, distended, nontender to palpation. Bowel sounds are present. No guarding or rigidity. No rebound tenderness. No CVA tenderness. Patient screened in triage and initial orders placed.? ?Additional care and disposition to be based upon?diagnostic testing and treatment. <Kristi Bello APRN - Last Filed: 10/11/24 03:05> Related Data Home Medications: Home Medications ?Medication ?Instructions ?Recorded ?Confirmed ?Last Taken ?Type isotretinoin 10 mg capsule 40 mg PO WEEKLY 10/07/22 09/28/24 Unknown History (Accutane) rosuvastatin 10 mg tablet 10 mg PO HS 06/26/24 10/05/24 10/04/24 History tadalafil 5 mg tablet 5 mg PO DAILY 06/26/24 10/05/24 10/04/24 History <Rene Rao APRN - Last Filed: 10/10/24 17:28> Allergies/Adverse Reactions: Allergies Allergy/AdvReac Type Severity Reaction Status Date / Time No Known Allergies Allergy Unknown Verified 10/10/24 17:58 <Rene Rao APRN - Last Filed: 10/10/24 17:28> Review of Systems Review of Systems: All systems reviewed & are unremarkable except as noted in HPI and below <Kristi Bello APRN - Last Filed: 10/11/24 03:05> [facility] Past Medical History Medical History: Medical History Hypertension Subacute sinusitis Urinary hesitancy Fatigue Laceration of left hand without foreign body Insomnia with sleep apnea BPH NOS w ur obs/LUTS Night sweats Chronic fatigue (~07/2018) Irregular heart beat (~07/2019) URI, acute (~07/2018) Testicular hyperfunction NGUYỄN (obstructive sleep apnea) BANG (generalized anxiety disorder) <Rene Rao APRN - Last Filed: 10/10/24 17:28> Family History Family History: Family History Father Hypertension Heart disease Other Family history of coronary artery disease <Rene Rao APRN - Last Filed: 10/10/24 17:28> Social History Social History: Social History Smoking status: Never smoker Second hand tobacco smoke exposure: No Alcohol intake: never Substance use: never Substance use type: does not use Lack of Transportation: No Lack of Food: Never True Current Housing: I Have Housing Concerned About Future Housing: No Difficulty Paying Gas/Electric Bills: No Difficulty Paying for Meds: No Currently Unemployed: No Education: Bachelor's Degree Difficulty w/ Childcare or Family Care: No Living arrangements: with family Gender identity (if verbalized by the patient): Male Spiritual care concerns: No <Rene Rao APRN - Last Filed: 10/10/24 17:28> Exam Narrative: GENERAL: Well appearing, well-nourished, non-toxic, in no acute distress. HEAD: Normocephalic, atraumatic. NECK: Supple. No adenopathy, no masses. RESPIRATORY: Airway patent, respirations nonlabored. Clear to auscultation bilaterally, no rales, rhonchi, wheezing. CARDIOVASCULAR: Regular rate and rhythm without murmurs, rubs, or gallops. Peripheral pulses 2+ and equal bilaterally. +R CVA tenderness ABDOMINAL: Soft, nontender, nondistended, no hepatosplenomegaly. Normoactive BS. MUSCULOSKELETAL: Moves all extremities. Strength/ROM intact without gross deformities. SKIN: Warm, dry, normal color. No rashes. NEURO: A&O X3. Speech clear. Cranial nerves II-XII intact. No ataxic movements. PSYCHIATRIC: Appropriate mood and affect. Normal interaction. <Kristi Bello APRN - Last Filed: 10/11/24 03:05> Course Vital Signs Vital signs: Vital Signs Temperature 36.6 C 10/10/24 17:22 Pulse Rate 64 10/10/24 17:22 Respiratory Rate 20 10/10/24 17:22 Blood Pressure 171/70 H 10/10/24 17:22 Pulse Oximetry 98 10/10/24 17:22 Oxygen Delivery Room Air 10/10/24 17:22 Temperature 36.5 C 10/10/24 17:55 Pulse Rate 65 10/10/24 21:43 Respiratory Rate 19 10/10/24 21:43 Blood Pressure 160/74 H 10/10/24 21:43 Pulse Oximetry 100 10/10/24 21:43 Oxygen Delivery Room Air 10/10/24 17:51 <Rene Rao, HYDRAULIC PRESS SERVICER - Last Filed: 10/10/24 17:28> Vital Signs Temperature 36.6 C 10/10/24 17:22 Pulse Rate 64 10/10/24 17:22 Respiratory Rate 20 10/10/24 17:22 Blood Pressure 171/70 H 10/10/24 17:22 Pulse Oximetry 98 10/10/24 17:22 Oxygen Delivery Room Air 10/10/24 17:22 Temperature 36.5 C 10/10/24 17:55 Pulse Rate 65 10/10/24 21:43 Respiratory Rate 19 10/10/24 21:43 Blood Pressure 160/74 H 10/10/24 21:43 Pulse Oximetry 100 10/10/24 21:43 Oxygen Delivery Room Air 10/10/24 17:51 <Kristi Bello, HYDRAULIC PRESS SERVICER - Last Filed: 10/11/24 03:05> MDM - Abdominal Pain MDM Narrative Medical decision making narrative: 68-year-old male presents to the ER complaining of right flank pain approximately 30 minutes ago. Patient says he has a history of renal stones. Patient does not know the exact size of his kidney stones. Patient also reports chills and nausea. Patient reports he is urinating without difficulty but does state he of history of a enlarged prostate. Patient denies any vomiting, diarrhea, fevers, body aches. Labs Ordered: CBC, CMP, UA, lipase Imaging Ordered: CT abdomen pelvis Medications Ordered: 1 L normal saline IV bolus Results: Patient's CT scan indicates 5.6 mm calculus within the proximal right ureter. Global enlargement of the right kidney with moderate right-sided hydronephrosis and proximal hydroureter. Multiple 3 and 4 mm nonobstructing calculi are identified within the bilateral kidneys. The largest is within the lower pole of the left kidney measuring 9.4 mm. Diagnosis: Right kidney stone Consults: 2030- Spoke with Dr. Senior, who reports pt can go home and follow-up closely with urology as an outpatient. He should be prescribed with a prescription for Flomax. Pt will also be given a prescription for Coal Run. He can call [phone] for a follow-up appointment. Patient Education/Shared MDM: Results of lab work and imaging shared with patient. Declined pain med at time of examination. Patient strongly advised to maintain hydration status upon discharge and follow-up with Urology outpatient as soon as possible. He will be discharged home with a prescription for Coal Run and Soma. Strict return precautions provided. Patient verbalized understanding and is in agreement with plan. Vital signs stable at time of discharge. All questions answered. <Kristi Bello APRN - Last Filed: 10/11/24 03:05> Differential Diagnosis Differential diagnosis: Likely abdominal pain, calculus of kidney, gastroenteritis and other (Urinary tract infection) <Kristi Bello APRN - Last Filed: 10/11/24 03:05> Lab Data Attestation: I reviewed the patient's lab results. <Kristi Bello APRN - Last Filed: 10/11/24 03:05> Result diagrams: 10/10/24 17:49 10/10/24 17:49 <Rene Rao HYDRAULIC PRESS SERVICER - Last Filed: 10/10/24 17:28> Labs: Lab Results 10/10/24 10/10/24 Range/Units 17:49 18:02 WBC 8.9 (4.5-10.0) K/mm3 RBC 4.92 (4.6-6.20) M/mm3 Hgb 15.0 (14.0-18.0) g/dL Hct 45.0 (42.0-52.0) % MCV 91.5 (80-100) fl MCH 30.5 (26-34) pg MCHC 33.3 (32-36) g/dl RDW 11.9 (11.5-14.5) % Plt Count 195 (150-375) k/mm3 MPV 9.2 (7.4-10.4) fl Immature Gran % (Auto) 0.3 (0-0.5) % Neut % (Auto) 63.0 (45.5-73.1) % Lymph % (Auto) 30.1 (18.3-44.2) % Chaves % (Auto) 5.2 (2.6-8.5) % Eos % (Auto) 1.2 (0-4.4) % Baso % (Auto) 0.2 (0.2-1.2) % Lymph # (Auto) 2.66 (0.9-3.2) K/mm3 Chaves # (Auto) 0.5 (0.1-0.6) K/mm3 Eos # (Auto) 0.1 (0-0.3) K/mm3 Baso # (Auto) 0.0 (0.0-0.1) K/mm3 Abs Immat Gran (auto) 0.03 (0.00-0.031) K/mm3 Absolute Neuts (auto) 5.6 (1.3-6.7) K/mm3 Absolute Nucleated RBC 0.000 (0.0-0.012) K/mm3 Nucleated RBC % 0.0 (0.0-0.2) % Sodium 140 (137-145) mmol/L Potassium 4.2 (3.4-5.0) mmol/L Chloride 102 (98-107) mmol/L Carbon Dioxide 28 (22-30) mmol/L Anion Gap 10 (4-12) mmol/L BUN 19 (9-20) mg/dL Creatinine 1.13 (0.7-1.3) mg/dL Estim Creat Clear Calc 53 ml/min Estimated GFR > 60 (59 - ) Glucose 125 H (65-110) mg/dL Calcium 10.2 (8.4-10.2) mg/dL Total Bilirubin 0.4 (0.2-1.3) mg/dL AST 30 (17-59) U/L ALT 19 (6-50) U/L Alkaline Phosphatase 74 (38-126) U/L Total Protein 8.0 (6.3-8.2) g/dL Albumin 4.6 (3.5-5.1) g/dL Lipase 92 (23-300) U/L Urine Color Yellow (Yellow) Urine Appearance Clear (Clear) Urine pH 5.5 (5.0-9.0) Ur Specific Smock 1.020 (1.001-1.035) Urine Protein Trace (Negative) mg/dL Urine Glucose (UA) Negative (Negative) mg/dL Urine Ketones Negative (Negative) mg/dL Ur Blood (Man) 3+ H (Negative) Urine Nitrate Negative (Negative) Urine Bilirubin Negative (Negative) Urine Urobilinogen 0.2 (<2.0) mg/dL Leukocyte Esterase Rfl Negative (Negative) ERIKA/UL Urine RBC >100 H (0-2) /hpf Urine WBC 0-5 (0-3) /hpf Ur Squamous Epith Cells None seen (Few) /hpf Urine Bacteria None seen /hpf Urine Casts 0-2 <Rene Rao, HYDRAULIC PRESS SERVICER - Last Filed: 10/10/24 17:28> Lab Results 10/10/24 10/10/24 Range/Units 17:49 18:02 WBC 8.9 (4.5-10.0) K/mm3 RBC 4.92 (4.6-6.20) M/mm3 Hgb 15.0 (14.0-18.0) g/dL Hct 45.0 (42.0-52.0) % MCV 91.5 (80-100) fl MCH 30.5 (26-34) pg MCHC 33.3 (32-36) g/dl RDW 11.9 (11.5-14.5) % Plt Count 195 (150-375) k/mm3 MPV 9.2 (7.4-10.4) fl Immature Gran % (Auto) 0.3 (0-0.5) % Neut % (Auto) 63.0 (45.5-73.1) % Lymph % (Auto) 30.1 (18.3-44.2) % Chaves % (Auto) 5.2 (2.6-8.5) % Eos % (Auto) 1.2 (0-4.4) % Baso % (Auto) 0.2 (0.2-1.2) % Lymph # (Auto) 2.66 (0.9-3.2) K/mm3 Chaves # (Auto) 0.5 (0.1-0.6) K/mm3 Eos # (Auto) 0.1 (0-0.3) K/mm3 Baso # (Auto) 0.0 (0.0-0.1) K/mm3 Abs Immat Gran (auto) 0.03 (0.00-0.031) K/mm3 Absolute Neuts (auto) 5.6 (1.3-6.7) K/mm3 Absolute Nucleated RBC 0.000 (0.0-0.012) K/mm3 Nucleated RBC % 0.0 (0.0-0.2) % Sodium 140 (137-145) mmol/L Potassium 4.2 (3.4-5.0) mmol/L Chloride 102 (98-107) mmol/L Carbon Dioxide 28 (22-30) mmol/L Anion Gap 10 (4-12) mmol/L BUN 19 (9-20) mg/dL Creatinine 1.13 (0.7-1.3) mg/dL Estim Creat Clear Calc 53 ml/min Estimated GFR > 60 (59 - ) Glucose 125 H (65-110) mg/dL Calcium 10.2 (8.4-10.2) mg/dL Total Bilirubin 0.4 (0.2-1.3) mg/dL AST 30 (17-59) U/L ALT 19 (6-50) U/L Alkaline Phosphatase 74 (38-126) U/L Total Protein 8.0 (6.3-8.2) g/dL Albumin 4.6 (3.5-5.1) g/dL Lipase 92 (23-300) U/L Urine Color Yellow (Yellow) Urine Appearance Clear (Clear) Urine pH 5.5 (5.0-9.0) Ur Specific Smock 1.020 (1.001-1.035) Urine Protein Trace (Negative) mg/dL Urine Glucose (UA) Negative (Negative) mg/dL Urine Ketones Negative (Negative) mg/dL Ur Blood (Man) 3+ H (Negative) Urine Nitrate Negative (Negative) Urine Bilirubin Negative (Negative) Urine Urobilinogen 0.2 (<2.0) mg/dL Leukocyte Esterase Rfl Negative (Negative) ERIKA/UL Urine RBC >100 H (0-2) /hpf Urine WBC 0-5 (0-3) /hpf Ur Squamous Epith Cells None seen (Few) /hpf Urine Bacteria None seen /hpf Urine Casts 0-2 <Krsiti Bello APRN - Last Filed: 10/11/24 03:05> Imaging Data Attestation: I personally reviewed and interpreted this imaging study as follows: <Kristi Bello APRN - Last Filed: 10/11/24 03:05> Radiologist's impression: ITS Impressions Abdomen/Pelvis CT 10/10/24 19:53 IMPRESSION: Right-sided hydronephrosis and proximal hydroureter secondary to a 5.6 mm calculus within the proximal right ureter. <Rene Rao APRN - Last Filed: 10/10/24 17:28> ITS Impressions Abdomen/Pelvis CT 10/10/24 19:53 IMPRESSION: Right-sided hydronephrosis and proximal hydroureter secondary to a 5.6 mm calculus within the proximal right ureter. <Kristi Bello, HYDRAULIC PRESS SERVICER - Last Filed: 10/11/24 03:05> Discharge Plan Discharge Clinical Impression: Kidney calculi, Right flank pain <Rene Rao APRN - Last Filed: 10/10/24 17:28> Patient Disposition: Home <Rene Rao APRN - Last Filed: 10/10/24 17:28> Condition: Stable <Rene Rao APRN - Last Filed: 10/10/24 17:28> Instructions: Antibiotic Form, Kidney Stones (ED), How to Strain Your Urine (ED) <Rene Rao APRN - Last Filed: 10/10/24 17:28> Additional Instructions: Please return to the ER with any worsening symptoms. Follow-up with urology as soon as possible. You can call [phone] to schedule an appointment. Take all medications as prescribed, including regularly scheduled medications. You may use Coal Run as needed for pain relief. Please take Flomax every day until you follow-up with Urology. Remember to drink lots of water. <Rene Rao APRN - Last Filed: 10/10/24 17:28> Patient Language: Cameroonian <Rene Rao APRN - Last Filed: 10/10/24 17:28> Prescriptions: New tamsulosin [Flomax] 0.4 mg capsule 0.4 mg PO DAILY Qty: 10 0RF hydrocodone-acetaminophen 5-325 mg tablet 1 tablet PO Q8H PRN (Reason: pain) Qty: 10 0RF No Action isotretinoin [Accutane] 10 mg capsule 40 mg PO WEEKLY Patient Comments: TAKES 40 MG TAKES ONCE A WK rosuvastatin 10 mg tablet 10 mg PO HS tadalafil 5 mg tablet 5 mg PO DAILY cefuroxime axetil 250 mg tablet 250 mg PO BID Qty: 20 0RF oxycodone 5 mg tablet 5 mg PO BID PRN (Reason: pain) Qty: 14 0RF irbesartan 300 mg tablet 300 mg PO DAILY Qty: 5 0RF Rx Instructions: EMERGENCY FILL OUT OF TOWN contact patient on cell [phone] for pick up man <Rene Rao APRN - Last Filed: 10/10/24 17:28> Follow-up/Referrals: Venus,HEVER Jones [Primary Care Provider] - Juan José Senior MD [Physician] - (urology) <Rene Rao APRN - Last Filed: 10/10/24 17:28> Time of Disposition: 20:58 <Rene Rao APRN - Last Filed: 10/10/24 17:28> 20:58 <Kristi Bello APRN - Last Filed: 10/11/24 03:05>
[2024-10-10 17:51] VITALS: BP 172/69; PULSE 63; RESP 14; TEMP 36.6; O2SAT 99
[2024-10-10 17:55] VITALS: BP 172/69; PULSE 63; RESP 17; TEMP 36.5; O2SAT 100
[2024-10-10 17:59] LABS: Hematocrit 45.0 % (42.0-52.0); Hemoglobin 15.0 g/dL (14.0-18.0); Immature Granulocyte Percent A 0.3 % (0-0.5); Lymphocytes Absolute Auto 2.66 K/mm3 (0.9-3.2); Mean Corpuscular HGB Conc 33.3 g/dl (32-36); Mean Corpuscular Hemoglobin 30.5 pg (26-34); Mean Corpuscular Volume 91.5 fl (80-100); Nucleated Red Blood Cells Absolute Auto 0.000 K/mm3 (0.0-0.012); Nucleated Red Blood Cells Perc 0.0 % (0.0-0.2); Platelet Count Result 195 k/mm3 (150-375); Red Blood Count 4.92 M/mm3 (4.6-6.20); White Blood Count 8.9 K/mm3 (4.5-10.0)
[2024-10-10 18:09] LABS: Alanine Aminotransferase 19 U/L (6-50); Albumin Level 4.6 g/dL (3.5-5.1); Alkaline Phosphatase 74 U/L (38-126); Anion Gap 10 mmol/L (4-12); Aspartate Amino Transferase 30 U/L (17-59); Bilirubin,Total 0.4 mg/dL (0.2-1.3); Blood Urea Nitrogen 19 mg/dL (9-20); Calcium 10.2 mg/dL (8.4-10.2); Carbon Dioxide 28 mmol/L (22-30); Chloride 102 mmol/L (98-107); Estimated CRCL calculation 53 ml/min; Estimated Glomerular Filt Rate > 60; Glucose 125 mg/dL (65-110); Lipase 92 U/L (23-300); Potassium 4.2 mmol/L (3.4-5.0); Sodium 140 mmol/L (137-145); Total Protein 8.0 g/dL (6.3-8.2)
[2024-10-10 18:12] LABS: Add Urine Microscopic? YES; Appearance Urine Clear (Clear); Glucose Urine UA Negative (Negative); Leukocyte Esterase Ur Negative LEU/UL (Negative); Nitrate Urine Negative (Negative); Non Pathogenic Casts 0-2; Specific Grav Ur 1.020 (1.001-1.035)
--- NOTE | 2024-10-10 19:15 | PC.NURSE ---
Assumed care of patient after receiving report from Farideh RN & DERIAN Salazar. @ [phone]
[2024-10-10 19:16] VITALS: BP 163/74; PULSE 62; RESP 17; O2SAT 98
--- OUTSIDE RECORDS SUMMARY | 2024-10-10 19:47 | XMS_ITS | Clinical Summary ---
Author Organization [facility] [employer] Address [address] [place] [address] Care Team Providers Care Mold Construction Supervisor Name Role Phone Karen Bond Primary Care Pr ovider Source Comments [facility] [employer],non-owned Affiliates and Associated Physician Practices is amultiple site organization consisting of ambulatory clinics and hospital sitesin [place], [place], [place] and [place]. This disclosure is being madepursuant to the Care Everywhere program and may not contain all information available regarding this patient. Last updated 17.[facility] [employer] Allergies No known active allergies Medications * [...] on file Legal Sex Male 6:05 AM CALKER Gender Identity Not on file Sexual Orientation Not on file Last Filed Vital Signs Vital Sign Reading Time Taken Comments Blood Pressure 112/69 02/06/2024 1:22 PM CALKER Pulse 66 02/06/2024 1:22 PM CALKER Temperature 36.6 C (97.9 F) 02/06/2024 1:22 PM CALKER Respiratory Rate 12 01/11/2023 11:45 AM CALKER Oxygen Saturation 95% 02/06/2024 1:22 PM CALKER Inhaled Oxygen Concentration - - Weight 76.7 kg (169 lb) 02/06/2024 1:22 PM CALKER Height 172.7 cm (5' 8) 02/06/2024 1:22 PM CALKER Body Mass Index 25.7 02/06/2024 1:22 PM CALKER Plan of Treatment Health Maintenance Due Date [...] this topic Insurance MEDICARE AETNA Care Teams Mold Construction Supervisor Relationship Specialty Start Date End Date Karen Bond PA [address] [place] [address] PCP - General Physician Glassblower 12/06/22
--- OUTSIDE RECORDS SUMMARY | 2024-10-10 19:47 | XMS_ITS | Clinical Summary ---
Author Organization [address] Address [address] [place] [address] Care Team Providers Care Tile Conduit Layer Name Role Phone Katidelano Karen HUNTER Primary [...] Insurance MEDICARE AETNA SENIOR SUPPLEMENT Care Teams Tile Conduit Layer Relationship Specialty Start Date End Date Karen Donovan PA [address] [place] [address] PCP - General Physician Practice Architect 04/05/24
--- OUTSIDE RECORDS SUMMARY | 2024-10-10 19:47 | XMS_ITS | Clinical Summary ---
Author Organization [facility] Address [address] [place] [address] Care Team Providers Care Malt House Kiln Operator Name Role Phone Pedro Brady DO Primary [...] to Health Maintenance Insurance MEDICARE Care Teams Malt House Kiln Operator Relationship Specialty Start Date End Date Pedro Brady DO [address] [place] [id number] PCP - General FAMILY PRACTICE 11/27/20
--- OUTSIDE RECORDS SUMMARY | 2024-10-10 19:47 | XMS_ITS | Clinical Summary ---
Author Organization [facility] Address [address] [place] [address] Phone Care Team Providers Care Veterinary Inspector Name Role Phone Unavailable Primary Care Provider [...] for Pain 12 Tablet 01/11/2023 5:02 PM LASER ENGINEER 01/11/2023 Active tamsulosin (FLOMAX) 0.4 mg capsule Take 1 Capsule (0.4 mg) by mouth daily at bedtime. 30 Capsule 1 02/05/2023 10:40 AM LASER ENGINEER 02/04/2023 Active tadalafil (CIALIS) 5 mg tablet [...] meal/food. 30 Capsule 1 01/28/2024 2:26 PM LASER ENGINEER 01/26/2024 Active Social History Tobacco Use Types Packs/Day Years Used Date Smoking Tobacco: Never Assessed Sex and Gender Information Value Date Recorded Sex Assigned at Not on file Legal Sex Male 11:10 AM LASER ENGINEER Gender Identity Not on file Sexual Orientation [...]
--- OUTSIDE RECORDS SUMMARY | 2024-10-10 19:47 | XMS_ITS | Encounter Summary ---
Author Organization [facility] Address [address] [place] [address] Care Team Providers Care Technology Administrator Name Role Phone Karen Bond Primary Care Pr ovider Encounter Details Date Type Department Care Team (Late st Contact Info) Description 11/25/2022 Lab Requisition [facility] - DermPath Lab [address] [facility] [facility] [place] [phone] Cortes Walls MD [address] [address] Social History Tobacco Use Types Packs/Day Years Used Date Smoking Tobacco: Never Assessed Sex and Gender Information Value Date Recorded Sex Assigned at Not on file Legal Sex Male 6:05 AM BUSINESS ASST Gender Identity Not on file Sexual Orientation Not on file documented as of this encounter Plan of Treatment Not on file documented as of this encounter Procedures Procedure Name Priority Date/Time Associated Diagnosis Comments DERMATOPATHOLOGY Routine 11/22/2022 12:0 0 AM CDT documented in this encounter Results * DERMATOPATHOLOGY (11/22/2022 12:00 AM CDT) Case Report Dermatopathology Report Case: [id number] Authorizing Provider: Cortes Walls MD Collected: 11/22/2022 12:00 AM Ordering Location: [facility] Lab Received: 11/25/2022 02:19 PM Pathologist: [...] R/[place] [id number] 3 4:16 PM CDT DERMATOPATHOLOGY LABORATORY Gross [...] determined by the Dermatopathology Laboratory at [facility], directed by Dr. Lizzie Crews. These tests need not be, and therefore are not, approved by the [place] Food and Drug Administration. The tests are used for clinical purposes. Billing Codes Specimen Charges Stain Charges 26867 1 19140 1 3 4:16 PM CDT DERMATOPATHOLOGY LABORATORY [...] - PATHOLOGY/CYTOLOGY ORDERABLES Final Result DERMATOPATHOLOGY LABORATORY [facility] - Department of Dermatology [facility] Medicine [address] [place] [address], [address] [phone] documented in this encounter Visit Diagnoses Not on filedocumented in this encounter Care Teams Technology Administrator Relationship Specialty Start Date End Date Karen Bond PA [address] [place] [address] PCP - General Physician Set Up Inspector 12/06/22 documented as of this encounter
[2024-10-10] MEDS: TAMSULOSIN HCL 0.4 MG CAPSULE PO (21:01)
[2024-10-10] MEDS: SODIUM CHLORIDE 0.9% IV 1,000 ML 999 ML IV CONT (21:01)
[2024-10-10 21:43] VITALS: BP 160/74; PULSE 65; RESP 19; O2SAT 100
== END 2024-10-10 22:05 | disposition home or self-care (01) ==
PROVIDERS: Emergency Provider Registered Nurse; PCP Physician Assistant
DX: N13.2 Hydronephrosis with renal and ureteral calculous obstruction (principal); I10 Essential (primary) hypertension; G47.33 Obstructive sleep apnea (adult) (pediatric); G47.00 Insomnia, unspecified; F41.1 Generalized anxiety disorder; Z79.899 Other long term (current) drug therapy
CPT/HCPCS: 36415; 74176; 80053; 81001; 83690; 85025; 96360; 99284; A9270; J7030

== ENCOUNTER 2024-10-12 19:50 | Observation (INO) | payer MEDICARE, SELFPAY ==
--- NOTE | ~2024-10-12 | XR_ITS ---
EXAMINATION: XR retrograde pyelo w/stent BI DATE: 10/13/2024 11:56 INDICATION: Renal stone TECHNIQUE: 7 fluoroscopic images of the abdomen and pelvis were obtained during procedure performed marivel Hobson. Radiologist was not present for the imaging or procedure. The amount of fluoroscopy time u sed during this procedure was 0.6 minutes. Total DAP was 0.51 mGym^2. COMPARISON: CT dated 10/12/2024 FINDINGS: The previous noted stones at the proximal right ureter and at the left renal pelvis are difficult to distinguish from the soft tissues on the social work job titles imaging. Subsequent images demonstrate cannulation and retrograde contrast injection into the bilateral renal collecting systems without martir hydronephros is. Final images demonstrate bilateral intraureteral stents in expected position with distal loops fo rmed in the bladder and proximal tips in the bilateral renal pelvises. There are multiple phleboliths in the pelvis. IMPRESSION: 1. Fluoroscopy utilized during bilateral retrograde pyelogram second and internal ureteral stent plac ements with the stents in expected position on the final images. Reviewed, dictated and finalized at location A. IMPRESSION: 1. Fluoroscopy utilized during bilateral retrograde pyelogram second and r d internship al ureteral stent placements with the stents in expected position on the final images.
--- NOTE | ~2024-10-12 | CT_ITS ---
CLINICAL INDICATION: Right flank pain COMPARISON: 10/10/2024. TECHNIQUE: Multiple contiguous axial images of the abdomen and pelvis were performed without the admi nistration of intravenous contrast The dose-length product (DLP) was 198.04 mGy-cm. Automated exposure control and iterative reconstruction technique were employed. FINDINGS/OBSERVATIONS: Visualized lower thorax: The bilateral lung bases are clear. The heart is borderline enlarged, without pericardial effusion. Moderate hiatal hernia is present. Liver: The liver demonstrates homogeneously decreased attenuation (consistent with fatty infiltration) and i s not enlarged. Gallbladder and biliary system: The gallbladder is decompressed consistent with recent oral intake. Pancreas: Limited evaluation of the pancreas secondary to the lack of intravenous contrast. Spleen: The spleen demonstrates homogeneous attenuation and is not enlarged. Kidneys: Redemonstration of global enlargement of the right kidney with moderate right-sided hydronephrosis an d proximal hydroureter. Interval enlargement of the right ureteral stone when compared with previous study measuring 5.9 mm ( in comparison to 5.6). Interval progression of the stone previously identified within the proximal right ureter, now located within the proximal to mid right ureter. Multiple 3 and 4 mm nonobstructing calculi are identified within the bilateral kidneys. Interval progression of the 9 mm stone within the lower pole of the left kidney, now projecting into the left renal pelvis. Adrenal glands: Unremarkable. Gastrointestinal tract: Retained gastric contents within the stomach Colonic diverticulosis without surrounding inflammatory change. Appendix: The appendix is of normal caliber (axial series, images 116 through 136). Vasculature: Unremarkable. Lymph nodes: Limited evaluation without intravenous contrast. Pelvic structures: The bladder is only minimally distended, and otherwise unremarkable. The prostate gland is not enlarged, but contains multiple bulky calcifications. Body wall and musculoskeletal: Small fat-containing umbilical hernia. Fat-containing left inguinal hernia. Age-appropriate degenerative disease within the lower thoracic and lumbosacral spines. IMPRESSION: Redemonstration of right-sided hydroureteronephrosis secondary to a 5.9 mm calculus within the proxim al to mid right ureter. Reviewed, dictated and finalized at location A. IMPRESSION: Redemonstration of right-sided hydroureteronephrosis secondary to a 5.9 mm calc ulus within the proximal to mid right ureter.
[2024-10-12 19:51] VITALS: BP 187/89; PULSE 68; RESP 16; TEMP 36.7; O2SAT 100
--- OUTSIDE RECORDS SUMMARY | 2024-10-12 19:52 | XMS_ITS | Clinical Summary ---
Author Organization [facility] Address [address] [place] [address] Care Team Providers Care Graphite Disk Assembler Name Role Phone Karen Bond Primary Care Pr ovider Source Comments [facility],non-owned Affiliates and Associated Physician Practices is amultiple site organization consisting of ambulatory clinics and hospital sitesin [place], [place], [place] and [place]. This disclosure is being madepursuant to the Care Everywhere program and may not contain all information available regarding this patient. 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 Gender Identity Not on file Sexual Orientation Not on file Last Filed Vital Signs Vital Sign Reading Time Taken Comments Blood Pressure 112/69 02/06/2024 1:22 PM GYMNASTICS COACH OR INSTRUCTOR Pulse 66 02/06/2024 1:22 PM GYMNASTICS COACH OR INSTRUCTOR Temperature 36.6 C (97.9 F) 02/06/2024 1:22 PM GYMNASTICS COACH OR INSTRUCTOR Respiratory Rate 12 01/11/2023 11:45 AM GYMNASTICS COACH OR INSTRUCTOR Oxygen Saturation 95% 02/06/2024 1:22 PM GYMNASTICS COACH OR INSTRUCTOR Inhaled Oxygen Concentration - - Weight 76.7 kg (169 lb) 02/06/2024 1:22 PM GYMNASTICS COACH OR INSTRUCTOR Height 172.7 cm (5' 8) 02/06/2024 1:22 PM GYMNASTICS COACH OR INSTRUCTOR Body Mass Index 25.7 02/06/2024 1:22 PM GYMNASTICS COACH OR INSTRUCTOR Plan of Treatment Health Maintenance Due Date [...] this topic Insurance MEDICARE [employer]ET[employer] Care Teams Graphite Disk Assembler Relationship Specialty Start Date End Date Karen Bond PA [address] [place] [address] PCP - General Physician Behavioral Science Chair 12/06/22
--- OUTSIDE RECORDS SUMMARY | 2024-10-12 19:52 | XMS_ITS | Clinical Summary ---
Author Organization [facility] Address [address] [place] [id number] Care Team Providers Care Bisque Ware Dipper Name Role Phone Pedro Brady DO Primary [...] to Health Maintenance Insurance MEDICARE Care Teams Bisque Ware Dipper Relationship Specialty Start Date End Date Pedro Brady DO [address] [place] [phone] PCP - General FAMILY PRACTICE 11/27/20
--- OUTSIDE RECORDS SUMMARY | 2024-10-12 19:52 | XMS_ITS | Clinical Summary ---
Author Organization [facility] Address [address] [place] [address] Phone Care Team Providers Care Administrative Law Judge Name Role Phone Unavailable Primary Care Provider [...] for Pain 12 Tablet 01/11/2023 5:02 PM SHOE SPRAYER 01/11/2023 Active tamsulosin (FLOMAX) 0.4 mg capsule Take 1 Capsule (0.4 mg) by mouth daily at bedtime. 30 Capsule 1 02/05/2023 10:40 AM SHOE SPRAYER 02/04/2023 Active tadalafil (CIALIS) 5 mg tablet [...] meal/food. 30 Capsule 1 01/28/2024 2:26 PM SHOE SPRAYER 01/26/2024 Active Social History Tobacco Use Types Packs/Day Years Used Date Smoking Tobacco: Never Assessed Sex and Gender Information Value Date Recorded Sex Assigned at Not on file Legal Sex Male 11:10 AM SHOE SPRAYER Gender Identity Not on file Sexual Orientation [...]
--- OUTSIDE RECORDS SUMMARY | 2024-10-12 19:52 | XMS_ITS | Encounter Summary ---
Author Organization [facility] Address [address] [facility] [place] [address] Care Team Providers Care Buhr Mill Operator Name Role Phone Karen Bond Primary Care Pr ovider Encounter Details Date Type Department Care Team (Late st Contact Info) Description 11/25/2022 Lab Requisition [facility] - DermPath Lab [address] [facility] [place] [phone] Cortes Walls MD [address] [address] Social History Tobacco Use Types Packs/Day Years Used Date Smoking Tobacco: Never Assessed Sex and Gender Information Value Date Recorded Sex Assigned at Not on file Legal Sex Male 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 GEOLOGICAL ENGINEER Gender Identity Not on file Sexual Orientation Not on file documented as of this encounter Plan of Treatment Not on file documented as of this encounter Procedures Procedure Name Priority Date/Time Associated Diagnosis Comments DERMATOPATHOLOGY Routine 11/22/2022 12:0 0 AM CDT documented in this encounter Results * DERMATOPATHOLOGY (11/22/2022 12:00 AM CDT) Case Report Dermatopathology Report Case: [id number] Authorizing Provider: Cortes Walls MD Collected: 11/22/2022 12:00 AM Ordering Location: [facility] DermPath Lab Received: 11/25/2022 02:19 PM Pathologist: [...] R/[place] [id number] 3 4:16 PM CDT DERMATOPATHOLOGY LABORATORY Gross [...] characteristic determined by the Dermatopathology Laboratory at [facility], directed by Dr. Lizzie Crews. These tests need not be, and therefore are not, approved by the [place] Food and Drug Administration. The tests are used for clinical purposes. Billing Codes Specimen Charges Stain Charges 24081 1 08259 1 3 4:16 PM CDT DERMATOPATHOLOGY LABORATORY [...] - PATHOLOGY/CYTOLOGY ORDERABLES Final Result DERMATOPATHOLOGY LABORATORY [facility] - Department of Dermatology [facility] Medicine [address] [place] [address], [address] [phone] documented in this encounter Visit Diagnoses Not on filedocumented in this encounter Care Teams Buhr Mill Operator Relationship Specialty Start Date End Date Karen Bond PA [address] [place] [address] PCP - General Physician Biomechanical Engineer 12/06/22 documented as of this encounter
--- OUTSIDE RECORDS SUMMARY | 2024-10-12 19:52 | XMS_ITS | Clinical Summary ---
Author Organization [address] Address [address] [place] [phone] Care Team Providers Care Medical Claims Specialist Name Role Phone Katidelano Karen HUNTER Primary [...] Insurance MEDICARE A[employer]NA SENIOR SUPPLEMENT Care Teams Medical Claims Specialist Relationship Specialty Start Date End Date Karen Donovan PA [address] [place] [address] PCP - General Physician Mergers And Acquisitions Associate 04/05/24
--- NOTE | 2024-10-12 20:14 | ED_ITS ---
HPI - Male Genitourinary General Chief complaint: Urogenital-Male <Kristi Bello APRN - Last Filed: 10/13/24 00:29> Stated complaint: kidney stones <Kristi Bello APRN - Last Filed: 10/13/24 00:29> Time Seen by Provider: 10/12/24 20:09 <Kristi Bello APRN - Last Filed: 10/13/24 00:29> History of Present Illness HPI Narrative: Pt is a 68-year-old male who presents to the ER complaining of right flank pain that started approximately 1 hour prior to arrival. Patient was seen in this ER two days ago and was diagnosed with a kidney stone. He opted to go home and follow-up with urology. Pt followed up with urology outpatient today. He was unable to get imaging done today. Patient reports I was doing well until 7pm tonight. Patient denies any diarrhea, fevers, body aches or urinary symptoms. <Kristi Bello APRN - Last Filed: 10/13/24 00:29> Related Data Home medications: Home Medications ?Medication ?Instructions ?Recorded ?Confirmed ?Last Taken ?Type rosuvastatin 10 mg tablet 10 mg PO HS 06/26/24 10/12/24 10/04/24 History tadalafil 5 mg tablet 5 mg PO HS 06/26/24 10/12/24 10/04/24 History irbesartan 300 mg tablet 300 mg PO HS 10/12/24 10/12/24 Unknown History <Kristi Bello APRN - Last Filed: 10/13/24 00:29> Allergies/Adverse reactions: Allergies Allergy/AdvReac Type Severity Reaction Status Date / Time No Known Allergies Allergy Unknown Verified 10/13/24 00:02 <Kristi Bello APRN - Last Filed: 10/13/24 00:29> Review of Systems 2 Review of Systems: All systems reviewed & are unremarkable except as noted in HPI and below <Kristi Bello APRN - Last Filed: 10/13/24 00:29> PMFSH Past Medical History Medical History: Medical History Hypertension Subacute sinusitis Urinary hesitancy Fatigue Laceration of left hand without foreign body Insomnia with sleep apnea BPH NOS w ur obs/LUTS Night sweats Chronic fatigue (~07/2018) Irregular heart beat (~07/2019) URI, acute (~07/2018) Testicular hyperfunction NGUYỄN (obstructive sleep apnea) BANG (generalized anxiety disorder) <Kristi Bello APRN - Last Filed: 10/13/24 00:29> Family History Family History: Family History Father Hypertension Heart disease Other Family history of coronary artery disease <Kristi Bello APRN - Last Filed: 10/13/24 00:29> Social History Social History: Social History Smoking status: Never smoker Second hand tobacco smoke exposure: No Alcohol intake: never Substance use: never Substance use type: does not use Lack of Transportation: No Lack of Food: Never True Current Housing: I Have Housing Concerned About Future Housing: No Difficulty Paying Gas/Electric Bills: No Difficulty Paying for Meds: No Currently Unemployed: No Education: Bachelor's Degree Difficulty w/ Childcare or Family Care: No Living arrangements: with family Gender identity (if verbalized by the patient): Male Spiritual care concerns: No <Kristi Bello APRN - Last Filed: 10/13/24 00:29> Exam 2 Narrative: GENERAL: Ill appearing, well-nourished, non-toxic, in no acute distress. HEAD: Normocephalic, atraumatic. NECK: Supple. No adenopathy, no masses. RESPIRATORY: Airway patent, respirations nonlabored. Clear to auscultation bilaterally, no rales, rhonchi, wheezing. CARDIOVASCULAR: Regular rate and rhythm without murmurs, rubs, or gallops. Peripheral pulses 2+ and equal bilaterally. + R CVA tenderness ABDOMINAL: Soft, nontender, nondistended, no hepatosplenomegaly. Normoactive BS. MUSCULOSKELETAL: Moves all extremities. Strength/ROM intact without gross deformities. SKIN: Warm, dry, normal color. No rashes. NEURO: A&O X3. Speech clear. Cranial nerves II-XII intact. No ataxic movements. PSYCHIATRIC: Appropriate mood and affect. Normal interaction. <Kristi Bello, AXEL - Last Filed: 10/13/24 00:29> Course CUSTOMER QUALITY SPECIALIST/PA Physician Supervision This visit was performed by both a physician and an APC. I performed all aspects of the MDM as documented. <Chandler Samano MD - Last Filed: 10/13/24 06:44> Vital Signs Vital signs: Vital Signs Temperature 36.7 C 10/12/24 19:51 Pulse Rate 68 10/12/24 19:51 Respiratory Rate 16 10/12/24 19:51 Blood Pressure 187/89 H 10/12/24 19:51 Pulse Oximetry 100 10/12/24 19:51 Oxygen Delivery Room Air 10/12/24 19:51 Temperature 37.4 C 10/13/24 06:00 Pulse Rate 55 L 10/13/24 06:00 Respiratory Rate 20 10/13/24 06:00 Blood Pressure 122/59 L 10/13/24 06:00 Pulse Oximetry 96 10/13/24 06:00 Oxygen Delivery Room Air 10/13/24 01:08 <Kristi Bello APRN - Last Filed: 10/13/24 00:29> Vital Signs Temperature 36.7 C 10/12/24 19:51 Pulse Rate 68 10/12/24 19:51 Respiratory Rate 16 10/12/24 19:51 Blood Pressure 187/89 H 10/12/24 19:51 Pulse Oximetry 100 10/12/24 19:51 Oxygen Delivery Room Air 10/12/24 19:51 Temperature 37.4 C 10/13/24 06:00 Pulse Rate 55 L 10/13/24 06:00 Respiratory Rate 20 10/13/24 06:00 Blood Pressure 122/59 L 10/13/24 06:00 Pulse Oximetry 96 10/13/24 06:00 Oxygen Delivery Room Air 10/13/24 01:08 <Chandler Samano MD - Last Filed: 10/13/24 06:44> MDM - Male Genitourinary MDM Narrative Medical decision making narrative: Pt is a 68-year-old male who presents to the ER complaining of right flank pain that started approximately 1 hour prior to arrival. Patient was seen in this ER two days ago and was diagnosed with a kidney stone. He opted to go home and follow-up with urology. Pt followed up with urology outpatient today. He was unable to get imaging done today. Patient reports I was doing well until 7pm tonight. Patient denies any diarrhea, fevers, body aches or urinary symptoms. Labs Ordered: CBC, CMP, lipase, UA Imaging Ordered: CT abdomen pelvis Medications Ordered: 0.5 mg Dilaudid IV x2, 1 L normal saline IV bolus Results: Patient's CT scan indicates Redemonstration of right-sided hydroureteronephrosis secondary to a 5.9 mm calculus within the proximal to mid right ureter. His urinalysis indicates hematuria without infection Diagnosis: Multiple kidney stones Consults: 2229- Spoke with urology, Dr. Hobson, who was in agreement with consulting patient tomorrow morning. He suggested pt be admitted to the hospital for pain control. Dr. Hobson requested pt not receive Toradol so pt can have a lithotripsy tomorrow. MDM: Results of imaging and lab work shared with patient. It was advised patient be admitted to the hospital for further evaluation and treatment. Patient verbalized understanding and are in agreement with plan. He will remain NPO at midnight and receive Dilaudid as needed for pain control. Patient will receive continuous IV fluids. <Kristi Bello APRN - Last Filed: 10/13/24 00:29> Differential Diagnosis Differential diagnosis: Likely urinary tract infection, acute retention of urine and other (Hydroureteronephrosis, hematuria, acute kidney stone) <Kristi Bello APRN - Last Filed: 10/13/24 00:29> Lab Data Attestation: I reviewed the patient's lab results. <Kristi Bello APRN - Last Filed: 10/13/24 00:29> Result diagrams: 10/13/24 05:29 10/13/24 05:29 <Kristi Bello APRN - Last Filed: 10/13/24 00:29> Labs: Lab Results 10/12/24 10/12/24 Range/Units 20:10 21:02 WBC 7.7 (4.5-10.0) K/mm3 RBC 4.74 (4.6-6.20) M/mm3 Hgb 14.2 (14.0-18.0) g/dL Hct 43.9 (42.0-52.0) % MCV 92.6 (80-100) fl MCH 30.0 (26-34) pg MCHC 32.3 (32-36) g/dl RDW 12.2 (11.5-14.5) % Plt Count 204 (150-375) k/mm3 MPV 9.3 (7.4-10.4) fl Immature Gran % (Auto) 0.4 (0-0.5) % Neut % (Auto) 53.6 (45.5-73.1) % Lymph % (Auto) 36.2 (18.3-44.2) % George % (Auto) 8.2 (2.6-8.5) % Eos % (Auto) 1.3 (0-4.4) % Baso % (Auto) 0.3 (0.2-1.2) % Lymph # (Auto) 2.80 (0.9-3.2) K/mm3 George # (Auto) 0.6 (0.1-0.6) K/mm3 Eos # (Auto) 0.1 (0-0.3) K/mm3 Baso # (Auto) 0.0 (0.0-0.1) K/mm3 Abs Immat Gran (auto) 0.03 (0.00-0.031) K/mm3 Absolute Neuts (auto) 4.2 (1.3-6.7) K/mm3 Absolute Nucleated RBC 0.000 (0.0-0.012) K/mm3 Nucleated RBC % 0.0 (0.0-0.2) % Sodium 139 (137-145) mmol/L Potassium 4.3 (3.4-5.0) mmol/L Chloride 105 (98-107) mmol/L Carbon Dioxide 28 (22-30) mmol/L Anion Gap 6 (4-12) mmol/L BUN 19 (9-20) mg/dL Creatinine 1.17 (0.7-1.3) mg/dL Estim Creat Clear Calc 51 ml/min Estimated GFR > 60 (59 - ) Glucose 139 H (65-110) mg/dL Calcium 8.8 (8.4-10.2) mg/dL Total Bilirubin 0.3 (0.2-1.3) mg/dL AST 34 (17-59) U/L ALT 25 (6-50) U/L Alkaline Phosphatase 66 (38-126) U/L Total Protein 6.4 (6.3-8.2) g/dL Albumin 3.8 (3.5-5.1) g/dL Lipase 67 (23-300) U/L Urine Color Yellow (Yellow) Urine Appearance Clear (Clear) Urine pH 6.0 (5.0-9.0) Ur Specific [place] 1.025 (1.001-1.035) Urine Protein Negative (Negative) mg/dL Urine Glucose (UA) Negative (Negative) mg/dL Urine Ketones Trace H (Negative) mg/dL Ur Blood (Man) 2+ H (Negative) Urine Nitrate Negative (Negative) Urine Bilirubin Negative (Negative) Urine Urobilinogen 0.2 (<2.0) mg/dL Leukocyte Esterase Rfl Negative (Negative) ERIKA/UL Urine RBC 11-20 H (0-2) /hpf Urine WBC 0-5 (0-3) /hpf Ur Squamous Epith Cells None seen (Few) /hpf Urine Bacteria None seen /hpf Urine Casts 0-2 <Kristi Bello, CATERING SALES MANAGER - Last Filed: 10/13/24 00:29> Lab Results 10/12/24 10/12/24 Range/Units 20:10 21:02 WBC 7.7 (4.5-10.0) K/mm3 RBC 4.74 (4.6-6.20) M/mm3 Hgb 14.2 (14.0-18.0) g/dL Hct 43.9 (42.0-52.0) % MCV 92.6 (80-100) fl MCH 30.0 (26-34) pg MCHC 32.3 (32-36) g/dl RDW 12.2 (11.5-14.5) % Plt Count 204 (150-375) k/mm3 MPV 9.3 (7.4-10.4) fl Immature Gran % (Auto) 0.4 (0-0.5) % Neut % (Auto) 53.6 (45.5-73.1) % Lymph % (Auto) 36.2 (18.3-44.2) % George % (Auto) 8.2 (2.6-8.5) % Eos % (Auto) 1.3 (0-4.4) % Baso % (Auto) 0.3 (0.2-1.2) % Lymph # (Auto) 2.80 (0.9-3.2) K/mm3 George # (Auto) 0.6 (0.1-0.6) K/mm3 Eos # (Auto) 0.1 (0-0.3) K/mm3 Baso # (Auto) 0.0 (0.0-0.1) K/mm3 Abs Immat Gran (auto) 0.03 (0.00-0.031) K/mm3 Absolute Neuts (auto) 4.2 (1.3-6.7) K/mm3 Absolute Nucleated RBC 0.000 (0.0-0.012) K/mm3 Nucleated RBC % 0.0 (0.0-0.2) % Sodium 139 (137-145) mmol/L Potassium 4.3 (3.4-5.0) mmol/L Chloride 105 (98-107) mmol/L Carbon Dioxide 28 (22-30) mmol/L Anion Gap 6 (4-12) mmol/L BUN 19 (9-20) mg/dL Creatinine 1.17 (0.7-1.3) mg/dL Estim Creat Clear Calc 51 ml/min Estimated GFR > 60 (59 - ) Glucose 139 H (65-110) mg/dL Calcium 8.8 (8.4-10.2) mg/dL Total Bilirubin 0.3 (0.2-1.3) mg/dL AST 34 (17-59) U/L ALT 25 (6-50) U/L Alkaline Phosphatase 66 (38-126) U/L Total Protein 6.4 (6.3-8.2) g/dL Albumin 3.8 (3.5-5.1) g/dL Lipase 67 (23-300) U/L Urine Color Yellow (Yellow) Urine Appearance Clear (Clear) Urine pH 6.0 (5.0-9.0) Ur Specific [place] 1.025 (1.001-1.035) Urine Protein Negative (Negative) mg/dL Urine Glucose (UA) Negative (Negative) mg/dL Urine Ketones Trace H (Negative) mg/dL Ur Blood (Man) 2+ H (Negative) Urine Nitrate Negative (Negative) Urine Bilirubin Negative (Negative) Urine Urobilinogen 0.2 (<2.0) mg/dL Leukocyte Esterase Rfl Negative (Negative) ERIKA/UL Urine RBC 11-20 H (0-2) /hpf Urine WBC 0-5 (0-3) /hpf Ur Squamous Epith Cells None seen (Few) /hpf Urine Bacteria None seen /hpf Urine Casts 0-2 <Chandler Samano MD - Last Filed: 10/13/24 06:44> Imaging Data Attestation: I personally reviewed and interpreted this imaging study as follows: < Kristi Bello APRN - Last Filed: 10/13/24 00:29> Radiologist's impression: Impressions Abdomen/Pelvis CT 10/12/24 22:02 IMPRESSION: Redemonstration of right-sided hydroureteronephrosis secondary to a 5.9 mm calculus within the proximal to mid right ureter. <Kristi Bello APRN - Last Filed: 10/13/24 00:29> Discharge Plan Discharge Clinical Impression: Kidney stone on right side, Hydroureteronephrosis, Kidney stone on left side, Hematuria, Acute flank pain <Kristi Bello APRN - Last Filed: 10/13/24 00:29> Patient Disposition: Still a Patient <Kristi Bello APRN - Last Filed: 10/13/24 00:29> Condition: Stable <Kristi Bello APRN - Last Filed: 10/13/24 00:29>
[2024-10-12 20:21] LABS: Hematocrit 43.9 % (42.0-52.0); Hemoglobin 14.2 g/dL (14.0-18.0); Immature Granulocyte Percent A 0.4 % (0-0.5); Lymphocytes Absolute Auto 2.80 K/mm3 (0.9-3.2); Mean Corpuscular HGB Conc 32.3 g/dl (32-36); Mean Corpuscular Hemoglobin 30.0 pg (26-34); Mean Corpuscular Volume 92.6 fl (80-100); Nucleated Red Blood Cells Absolute Auto 0.000 K/mm3 (0.0-0.012); Nucleated Red Blood Cells Perc 0.0 % (0.0-0.2); Platelet Count Result 204 k/mm3 (150-375); Red Blood Count 4.74 M/mm3 (4.6-6.20); White Blood Count 7.7 K/mm3 (4.5-10.0)
[2024-10-12] MEDS: HYDROmorphone HCL INJ (*CRX) 2 MG/ML VIAL 0.5 MG IV PUSH ×2 (20:22→21:47)
[2024-10-12] MEDS: ONDANSETRON INJ 4 MG/2 ML VIAL IV PUSH (20:22)
[2024-10-12] MEDS: SODIUM CHLORIDE 0.9% IV 1,000 ML 999 ML IV CONT ×2 (20:22→23:34)
--- OUTSIDE RECORDS SUMMARY | 2024-10-12 20:30 | XMS_ITS | Clinical Summary ---
Author Organization [facility] Address [address] [place] [address] Phone Care Team Providers Care Monotype Keyboard Operator Name Role Phone Unavailable Primary Care Provider [...] Pain 12 Tablet 01/11/2023 5:02 PM PRINCIPAL BIOINFORMATICS SPECIALIST 01/11/2023 Active tamsulosin (FLOMAX) 0.4 mg capsule Take 1 Capsule (0.4 mg) by mouth daily at bedtime. 30 Capsule 1 02/05/2023 10:40 AM PRINCIPAL BIOINFORMATICS SPECIALIST 02/04/2023 Active tadalafil (CIALIS) 5 mg tablet [...] 30 Capsule 1 01/28/2024 2:26 PM PRINCIPAL BIOINFORMATICS SPECIALIST 01/26/2024 Active Social History Tobacco Use Types Packs/Day Years Used Date Smoking Tobacco: Never Assessed Sex and Gender Information Value Date Recorded Sex Assigned at Not on file Legal Sex Male 11:10 AM PRINCIPAL BIOINFORMATICS SPECIALIST Gender Identity Not on file Sexual Orientation [...]
--- OUTSIDE RECORDS SUMMARY | 2024-10-12 20:30 | XMS_ITS | Clinical Summary ---
Author Organization [address] Address [address] [place] [phone] Care Team Providers Care Education Courses Sales Representative Name Role Phone [place] Karen HUNTER Primary [...] Insurance MEDICARE [employer] SENIOR SUPPLEMENT Care Teams Education Courses Sales Representative Relationship Specialty Start Date End Date Karen Donovan PA [address] [place] [address] PCP - General Physician Boot Turner 04/05/24
--- OUTSIDE RECORDS SUMMARY | 2024-10-12 20:30 | XMS_ITS | Encounter Summary ---
Author Organization [facility] Address [address] [place] [address] Care Team Providers Care Practice Billing Associate Name Role Phone Karen Bond Primary Care Pr ovider Encounter Details Date Type Department Care Team (Late st Contact Info) Description 11/25/2022 Lab Requisition [facility] - DermPath Lab [address] [facility] [address] [facility], [place] [phone] Cortes Walls MD [address] [address] Social History Tobacco Use Types Packs/Day Years Used Date Smoking Tobacco: Never Assessed Sex and Gender Information Value Date Recorded Sex Assigned at Not on file Legal Sex Male 6:05 AM PAPER SAMPLE CLERK Gender Identity Not on file Sexual Orientation Not on file documented as of this encounter Plan of Treatment Not on file documented as of this encounter Procedures Procedure Name Priority Date/Time Associated Diagnosis Comments DERMATOPATHOLOGY Routine 11/22/2022 12:0 0 AM CDT documented in this encounter Results * DERMATOPATHOLOGY (11/22/2022 12:00 AM CDT) Case Report Dermatopathology Report Case: [id number] Authorizing Provider: Cortes Walls MD Collected: 11/22/2022 12:00 AM Ordering Location: [facility] DermPath Lab Received: 11/25/2022 02:19 PM [...] R/[place] [id number] 3 4:16 PM CDT DERMATOPATHOLOGY LABORATORY Gross [...] determined by the Dermatopathology Laboratory at [facility], directed by Dr. Lizzie Crews. These tests need not be, and therefore are not, approved by the [place] Food and Drug Administration. The tests are used for clinical purposes. Billing Codes Specimen Charges Stain Charges 78122 1 [id number] 1 3 4:16 PM CDT DERMATOPATHOLOGY LABORATORY [...] - PATHOLOGY/CYTOLOGY ORDERABLES Final Result DERMATOPATHOLOGY LABORATORY [facility] - Department of Dermatology [facility] [address] [place] [address], [address] [phone] documented in this encounter Visit Diagnoses Not on filedocumented in this encounter Care Teams Practice Billing Associate Relationship Specialty Start Date End Date Karen Bond PA [address] [place] [phone] PCP - General Physician Buckle Sewer 12/06/22 documented as of this encounter
--- OUTSIDE RECORDS SUMMARY | 2024-10-12 20:30 | XMS_ITS | Clinical Summary ---
Author Organization [facility] Address [address] [place] [address] Care Team Providers Care Field Producer Name Role Phone Karen Bond Primary Care Pr ovider Source Comments [facility],non-owned Affiliates and Associated Physician Practices is amultiple site organization consisting of ambulatory clinics and hospital sitesin [place], [place], [place] and [place]. This disclosure is being madepursuant to the Care Everywhere program and may not contain all information available regarding this patient. Last updated 17.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 Gender Identity Not on file Sexual Orientation Not on file Last Filed Vital Signs Vital Sign Reading Time Taken Comments Blood Pressure 112/69 02/06/2024 1:22 PM SECURITIES TRADER Pulse 66 02/06/2024 1:22 PM SECURITIES TRADER Temperature 36.6 C (97.9 F) 02/06/2024 1:22 PM SECURITIES TRADER Respiratory Rate 12 01/11/2023 11:45 AM SECURITIES TRADER Oxygen Saturation 95% 02/06/2024 1:22 PM SECURITIES TRADER Inhaled Oxygen Concentration - - Weight 76.7 kg (169 lb) 02/06/2024 1:22 PM SECURITIES TRADER Height 172.7 cm (5' 8) 02/06/2024 1:22 PM SECURITIES TRADER Body Mass Index 25.7 02/06/2024 1:22 PM SECURITIES TRADER Plan of Treatment Health Maintenance Due Date [...] this topic Insurance MEDICARE [employer] Care Teams Field Producer Relationship Specialty Start Date End Date Karen Bond PA [address] [place] [address] PCP - General Physician Honing Machine Operator Tool 12/06/22
--- OUTSIDE RECORDS SUMMARY | 2024-10-12 20:30 | XMS_ITS | Clinical Summary ---
Author Organization [facility] Address [address] [place] [id number] Care Team Providers Care Automatic Lathe Setter Name Role Phone Pedro Brady DO Primary [...] to Health Maintenance Insurance MEDICARE Care Teams Automatic Lathe Setter Relationship Specialty Start Date End Date Pedro Brady DO [address] [place] [id number] PCP - General FAMILY PRACTICE 11/27/20
[2024-10-12 20:42] LABS: Add Urine Microscopic? YES; Appearance Urine Clear (Clear); Glucose Urine UA Negative (Negative); Leukocyte Esterase Ur Negative LEU/UL (Negative); Nitrate Urine Negative (Negative); Non Pathogenic Casts 0-2; Specific Grav Ur 1.025 (1.001-1.035)
[2024-10-12 20:50] VITALS: BP 176/68; PULSE 61; RESP 29; O2SAT 95
[2024-10-12 21:38] LABS: Alanine Aminotransferase 25 U/L (6-50); Albumin Level 3.8 g/dL (3.5-5.1); Alkaline Phosphatase 66 U/L (38-126); Anion Gap 6 mmol/L (4-12); Aspartate Amino Transferase 34 U/L (17-59); Bilirubin,Total 0.3 mg/dL (0.2-1.3); Blood Urea Nitrogen 19 mg/dL (9-20); Calcium 8.8 mg/dL (8.4-10.2); Carbon Dioxide 28 mmol/L (22-30); Chloride 105 mmol/L (98-107); Estimated CRCL calculation 51 ml/min; Estimated Glomerular Filt Rate > 60; Glucose 139 mg/dL (65-110); Lipase 67 U/L (23-300); Potassium 4.3 mmol/L (3.4-5.0); Sodium 139 mmol/L (137-145); Total Protein 6.4 g/dL (6.3-8.2)
[2024-10-12 23:16] VITALS: BP 171/82; PULSE 64; RESP 16; O2SAT 93
[2024-10-12 23:31] VITALS: BP 157/85; PULSE 63; RESP 20; O2SAT 94
[2024-10-12] MEDS: HYDROmorphone HCL INJ (*CRX) 2 MG/ML VIAL 1 MG IV PUSH (23:34)
[2024-10-13] VITALS (8 sets, daily range): BP systolic 98–146; BP diastolic 51–67; PULSE 46–69; RESP 14–20; TEMP 37–37.4; O2SAT 93–100; BMI 26.9
[2024-10-13] MEDS: ROSUVASTATIN 10 MG TABLET PO (00:30)
[2024-10-13] MEDS: IRBESARTAN 150 MG TABLET 300 MG PO (00:30)
[2024-10-13] MEDS: HYDROmorphone HCL INJ (*CRX) 2 MG/ML VIAL 0.5 MG IV PUSH (00:31)
[2024-10-13] MEDS: HYOSCYAMINE SULFATE 0.5 MG/ML AMPUL 0.25 MG IM (00:31)
[2024-10-13] MEDS: ONDANSETRON INJ 4 MG/2 ML VIAL IV PUSH ×2 (00:42→04:15)
[2024-10-13] MEDS: SODIUM CHLORIDE 0.9% IV 1,000 ML 125 ML IV CONT (00:42)
[2024-10-13] MEDS: FAMOTIDINE 20 MG/2 ML VIAL IV PUSH (00:42)
--- NOTE | 2024-10-13 01:22 | PM.IMHP ---
H&P: HPI History of Present Illness Date/Time: 10/13/24 01:22 Chief Complaint: Right flank/RLQ pain, obstructing ureteral stone Narrative: This is a 68 year old male patient who is admitted to the hospital for right sided ureteral obstructing kidney stone with hydroureteronephrosis and intractable pain of the right flank and right lower quadrant abdomen. Patient also has 9 mm left sided kidney stone with progression into the renal pelvis since last scan 2 days ago. Patient at significant risk for bilateral ureteral obstruction. Urology was consulted in ER and plans to perform lithotripsy and/or ureteral stenting in the morning. No signs of UTI or renal failure, some hematuria present. Pain could not be controlled well in ER and patient had to get multiple doses of Dilaudid for pain management. IM Levsin also ordered. Zofran had to be given again as well. Pain medication switched to morphine with a Percocet after so many ineffective doses of Dilaudid. Patient reports that he had deviated septum repair last week but has never been admitted to the hospital before this admission. He takes medication for high blood pressure, cholesterol and erectile dysfunction. Patient has seen Urology before for hematuria but no prior procedures for kidney stones. Review of Systems Review of Systems: All systems reviewed & are unremarkable except as noted in HPI and below PMFSH Past Medical History Medical History Hypertension Subacute sinusitis Urinary hesitancy Fatigue Laceration of left hand without foreign body Insomnia with sleep apnea BPH NOS w ur obs/LUTS Night sweats Chronic fatigue (~07/2018) Irregular heart beat (~07/2019) URI, acute (~07/2018) Testicular hyperfunction NGUYỄN (obstructive sleep apnea) BANG (generalized anxiety disorder) Family History Family History Father Hypertension Heart disease Other Family history of coronary artery disease Social History Social History Smoking status: Never smoker Second hand tobacco smoke exposure: No Alcohol intake: never Substance use: never Substance use type: does not use Lack of Transportation: No Lack of Food: Never True Current Housing: I Have Housing Concerned About Future Housing: No Difficulty Paying Gas/Electric Bills: No Difficulty Paying for Meds: No Currently Unemployed: No Education: Bachelor's Degree Difficulty w/ Childcare or Family Care: No Living arrangements: with family Gender identity (if verbalized by the patient): Male Spiritual care concerns: No Meds Home Medications and Allergies Home Medications ?Medication ?Instructions ?Recorded ?Confirmed ?Type rosuvastatin 10 mg tablet 10 mg PO HS 06/26/24 10/12/24 History tadalafil 5 mg tablet 5 mg PO HS 06/26/24 10/12/24 History cefuroxime axetil 250 mg tablet 250 mg PO BID #20 tabs 10/05/24 10/13/24 Rx hydrocodone 5 mg-acetaminophen 325 1 tablet PO Q8H PRN pain #10 tabs 10/10/24 10/13/24 Rx mg tablet irbesartan 300 mg tablet 300 mg PO HS 10/12/24 10/12/24 History Allergies Allergy/AdvReac Type Severity Reaction Status Date / Time No Known Allergies Allergy Unknown Verified 10/13/24 00:02 Vital Signs Vital Signs - 24 hr 10/12/24 19:51 10/12/24 20:50 10/12/24 23:16 Temperature 36.7 C Pulse Rate 68 61 64 Respiratory Rate 16 29 H 16 Blood Pressure 187/89 H 176/68 H 171/82 H Pulse Oximetry 100 95 93 Oxygen Delivery Room Air 10/12/24 23:31 10/13/24 00:29 10/13/24 01:08 Temperature 37.0 C Pulse Rate 63 47 L Respiratory Rate 20 18 Blood Pressure 157/85 H 144/64 H Pulse Oximetry 94 99 Oxygen Delivery Room Air Exam Narrative: GENERAL: Uncomfortable appearing, well-nourished HEAD: Normocephalic, atraumatic. ENT:? Mucous membranes moist. CHEST: Clear to auscultation.? No respiratory distress. HEART: Regular rate and rhythm. ? Normal peripheral pulses. ABDOMEN: Soft, nontender, nondistended. Right sided lower quadrant, flank and CVA tenderness EXTREMITIES: Normal range of motion. No peripheral edema. SKIN: Warm dry normal color NEURO: Alert and oriented x3. PSYCH: Normal mood and affect H&P: Results Labs Labs: Short CBC 10/12/24 Range/Units 20:10 WBC 7.7 (4.5-10.0) K/mm3 Hgb 14.2 (14.0-18.0) g/dL Hct 43.9 (42.0-52.0) % Plt Count 204 (150-375) k/mm3 BMP 10/12/24 21:02 Sodium 139 Potassium 4.3 Chloride 105 Carbon Dioxide 28 BUN 19 Creatinine 1.17 Glucose 139 H Calcium 8.8 Liver Function 10/12/24 Range/Units 21:02 Total Bilirubin 0.3 (0.2-1.3) mg/dL AST 34 (17-59) U/L ALT 25 (6-50) U/L Alkaline Phosphatase 66 (38-126) U/L Albumin 3.8 (3.5-5.1) g/dL Urine 10/12/24 Range/Units 20:10 Urine Color Yellow (Yellow) Urine Appearance Clear (Clear) Urine pH 6.0 (5.0-9.0) Ur Specific Kirby 1.025 (1.001-1.035) Urine Protein Negative (Negative) mg/dL Urine Glucose (UA) Negative (Negative) mg/dL Pulse Oximetry SpO2 results: 93-99% on room air Attestation: I personally reviewed and interpreted this pulse oximetry as follows: Interpretation: No need for supplemental oxygenation at this time Imaging CT scan - abdomen: Radiologist's impression: CLINICAL INDICATION: Right flank pain COMPARISON: 10/10/2024. TECHNIQUE: Multiple contiguous axial images of the abdomen and pelvis were performed without the administration of intravenous contrast The dose-length product (DLP) was 198.04 mGy-cm. Automated exposure control and iterative reconstruction technique were employed. FINDINGS/OBSERVATIONS: Visualized lower thorax: The bilateral lung bases are clear. The heart is borderline enlarged, without pericardial effusion. Moderate hiatal hernia is present. Liver: The liver demonstrates homogeneously decreased attenuation (consistent with fatty infiltration) and is not enlarged. Gallbladder and biliary system: The gallbladder is decompressed consistent with recent oral intake. Pancreas: Limited evaluation of the pancreas secondary to the lack of intravenous contrast. Spleen: The spleen demonstrates homogeneous attenuation and is not enlarged. Kidneys: Redemonstration of global enlargement of the right kidney with moderate right-sided hydronephrosis and proximal hydroureter. Interval enlargement of the right ureteral stone when compared with previous study measuring 5.9 mm (in comparison to 5.6). Interval progression of the stone previously identified within the proximal right ureter, now located within the proximal to mid right ureter. Multiple 3 and 4 mm nonobstructing calculi are identified within the bilateral kidneys. Interval progression of the 9 mm stone within the lower pole of the left kidney, now projecting into the left renal pelvis. Adrenal glands: Unremarkable. Gastrointestinal tract: Retained gastric contents within the stomach Colonic diverticulosis without surrounding inflammatory change. Appendix: The appendix is of normal caliber (axial series, images 116 through 136). Vasculature: Unremarkable. Lymph nodes: Limited evaluation without intravenous contrast. Pelvic structures: The bladder is only minimally distended, and otherwise unremarkable. The prostate gland is not enlarged, but contains multiple bulky calcifications. Body wall and musculoskeletal: Small fat-containing umbilical hernia. Fat-containing left inguinal hernia. Age-appropriate degenerative disease within the lower thoracic and lumbosacral spines. IMPRESSION: Redemonstration of right-sided hydroureteronephrosis secondary to a 5.9 mm calculus within the proximal to mid right ureter. Reviewed, dictated and finalized at location A. Assessment and Plan Assessment and plan (1) Ureteral stone with hydronephrosis: Code(s): N13.2 - Hydronephrosis with renal and ureteral calculous obstruction Status: Acute Assessment and Plan: -Right sided proximal to mid ureteral obstructing stone with intractable pain requiring multiple doses of Dilaudid in ER -Mild progression of stone since discovery 2 days prior -Urology consulted with plan for lithotripsy or stent in the morning -NPO status -Pain/nausea medication PRN -Still intractable pain on arrival to the floor--IM Levsin 0.25 mg x1 and additional IV Dilaudid then patient finally able to rest (2) Hydroureteronephrosis: Code(s): N13.30 - Unspecified hydronephrosis Status: Acute Assessment and Plan: -Right sided hydroureteronephrosis -No UTI but pain intractable -Also large left sided stone entering the renal pelvis places patient at high risk for bilateral ureteral obstruction -Urology will see patient in the morning (3) Kidney stone on left side: Code(s): N20.0 - Calculus of kidney Status: Acute Assessment and Plan: See above (4) Primary hypertension: Code(s): I10 - Essential (primary) hypertension Status: Chronic Assessment and Plan: -Noted history, resume home medications when no longer NPO (5) BANG (generalized anxiety disorder): Code(s): F41.1 - Generalized anxiety disorder Status: Chronic Assessment and Plan: -Noted history, may exacerbate difficulty controlling pain Quality VTE Prophylaxis VTE prophylaxis: mechanical ordered If No VTE Prophylaxis Answer both mechanical and pharmacologic: Reason no pharmacologic proph: medical contraindication (Urologic surgery planned 10/13) Hospitalist [facility] Advance Care Plan I have confirmed that the patient's Advanced Care Plan is present, code status is documented, or surrogate decision maker is listed in patient medical record.: Yes Medication Reconciliation I have utilized all available resources to obtain, update and review the patients current medications (includes all prescriptions, OTC, herbals, cannabis, and nutritional supplements).: Yes
[2024-10-13] MEDS: MORPHINE SULFATE (*CRX) 4 MG/ML INJ IV PUSH (03:46)
[2024-10-13] MEDS: oxyCODONE/ACETAMINOPHEN (*CRX) 5-325 MG TABLET 1 TABLET PO (03:47)
[2024-10-13 05:53] LABS: Hematocrit 38.1 % (42.0-52.0); Hemoglobin 12.2 g/dL (14.0-18.0); Immature Granulocyte Percent A 0.3 % (0-0.5); Lymphocytes Absolute Auto 0.82 K/mm3 (0.9-3.2); Mean Corpuscular HGB Conc 32.0 g/dl (32-36); Mean Corpuscular Hemoglobin 29.8 pg (26-34); Mean Corpuscular Volume 92.9 fl (80-100); Nucleated Red Blood Cells Absolute Auto 0.000 K/mm3 (0.0-0.012); Nucleated Red Blood Cells Perc 0.0 % (0.0-0.2); Platelet Count Result 176 k/mm3 (150-375); Red Blood Count 4.10 M/mm3 (4.6-6.20); White Blood Count 9.7 K/mm3 (4.5-10.0)
[2024-10-13 06:14] LABS: Alanine Aminotransferase 22 U/L (6-50); Albumin Level 3.8 g/dL (3.5-5.1); Alkaline Phosphatase 60 U/L (38-126); Anion Gap 4 mmol/L (4-12); Aspartate Amino Transferase 28 U/L (17-59); Bilirubin,Total 0.6 mg/dL (0.2-1.3); Blood Urea Nitrogen 18 mg/dL (9-20); Calcium 8.4 mg/dL (8.4-10.2); Carbon Dioxide 26 mmol/L (22-30); Chloride 106 mmol/L (98-107); Estimated CRCL calculation 45 ml/min; Estimated Glomerular Filt Rate 52; Glucose 150 mg/dL (65-110); Magnesium 1.8 mg/dL (1.6-2.3); Potassium 5.0 mmol/L (3.4-5.0); Sodium 136 mmol/L (137-145); Total Protein 6.1 g/dL (6.3-8.2)
--- NOTE | 2024-10-13 06:55 | P.CONUR_ITS ---
Assessment and Plan Assessment and plan (1) Calculus of ureter: Code(s): N20.1 - Calculus of ureter Status: Acute Assessment and Plan: ASSESSMENT: 6mm right proximal ureteral stone, 9mm left renal pelvis stone, with failed trial of passage MEDICAL DECISION MAKING: The patient presented to the ED for the second time in two days with poorly controlled pain secondary to a known right ureteral stone. He has failed medical expulsive therapy. Given the persistent symptoms and right-sided hydronephrosis, intervention is warranted. A ureteral stent on the right side is necessary to relieve the obstruction. To prevent a subsequent presentation for an obstructing left-sided stone, a prophylactic stent on the left side is also recommended given the large, precariously positioned stone in the left renal pelvis. The plan is to admit and proceed with surgery. PLAN: - Patient agreeable to BILATERAL stent placement - Is aware of need to avoid NSAIDS, aspirin, and blood thinners in an effort to be able to expedite getting an ESWL with his Urologist, Dr. Paez - Proceed to OR for cystoscopy, bilateral retrograde pyelogram, and bilateral ureteral stent placement -- is urologically cleared for discharge post-op if AFVSS and pain controlled Urology Consult Note HPI Date Seen: 10/13/24 Requesting Physician: Hyun Samuels MD Primary Care Provider: Karen Donovan, HEVER Consult Narrative Narrative: Chief Complaint: - Right flank pain. 10/12/2024 History of Present Illness: Mr. Tanner is a patient with a history of kidney stones who presented to the [place] [facility] on 10/10/2024 with right flank pain. He was diagnosed with a proximal right ureteral stone and discharged for outpatient follow-up. He returned to the ED today, 10/12/2024, due to poorly controlled pain. Repeat imaging was performed showing a persistent 6mm right proximal ureteral stone, but now also a 9mm left renal pelvis stone which, a couple days ago, was lower pole suggesting it may obstruct soon. He has failed medical expulsive therapy. -PERTINENT LABS: 10/12/2024 - White blood cell count: 7.7 10/12/2024 - Creatinine: 1.2 -PERTINENT IMAGIN10/12/2024 CTA non-contrast ([place]) - Bilateral non-obstructing stones. 6 mm proximal right ureteral stone with right hydronephrosis. 9 mm left renal pelvis stone, precariously positioned, without signs of obstruction. 10/12/2024 UA: Nitrate negative, leukocyte esterase negative, positive for red blood cells. Review of Systems 2 Review of Systems: All systems reviewed & are unremarkable except as noted in HPI and below PMFSH Past Medical History Medical History Hypertension Subacute sinusitis Urinary hesitancy Fatigue Laceration of left hand without foreign body Insomnia with sleep apnea BPH NOS w ur obs/LUTS Night sweats Chronic fatigue (~07/2018) Irregular heart beat (~07/2019) URI, acute (~07/2018) Testicular hyperfunction NGUYỄN (obstructive sleep apnea) BANG (generalized anxiety disorder) Family History Family History Father Hypertension Heart disease Other Family history of coronary artery disease Social History Social History Smoking status: Never smoker Second hand tobacco smoke exposure: No Alcohol intake: never Substance use: never Substance use type: does not use Lack of Transportation: No Lack of Food: Never True Current Housing: I Have Housing Concerned About Future Housing: No Difficulty Paying Gas/Electric Bills: No Difficulty Paying for Meds: No Currently Unemployed: No Education: Bachelor's Degree Difficulty w/ Childcare or Family Care: No Living arrangements: with family Gender identity (if verbalized by the patient): Male Spiritual care concerns: No Meds Home Medications and Allergies Home Medications ?Medication ?Instructions ?Recorded ?Confirmed ?Type rosuvastatin 10 mg tablet 10 mg PO HS 06/26/24 10/12/24 History tadalafil 5 mg tablet 5 mg PO HS 06/26/24 10/12/24 History cefuroxime axetil 250 mg tablet 250 mg PO BID #20 tabs 10/05/24 10/13/24 Rx hydrocodone 5 mg-acetaminophen 325 1 tablet PO Q8H PRN pain #10 tabs 10/10/24 10/13/24 Rx mg tablet irbesartan 300 mg tablet 300 mg PO HS 10/12/24 10/12/24 History Allergies Allergy/AdvReac Type Severity Reaction Status Date / Time No Known Allergies Allergy Unknown Verified 10/13/24 00:02 Vital Signs Vital Signs - 24 hr 10/12/24 19:51 10/12/24 20:50 10/12/24 23:16 Temperature 36.7 C Pulse Rate 68 61 64 Respiratory Rate 16 29 H 16 Blood Pressure 187/89 H 176/68 H 171/82 H Pulse Oximetry 100 95 93 Oxygen Delivery Room Air 10/12/24 23:31 10/13/24 00:29 10/13/24 01:08 Temperature 37.0 C Pulse Rate 63 47 L Respiratory Rate 20 18 Blood Pressure 157/85 H 144/64 H Pulse Oximetry 94 99 Oxygen Delivery Room Air 10/13/24 06:00 Temperature 37.4 C Pulse Rate 55 L Respiratory Rate 20 Blood Pressure 122/59 L Pulse Oximetry 96 Oxygen Delivery Exam 2 Narrative: No acute distress Results Labs 10/13/24 05:29 10/13/24 05:29 Labs: Short CBC 10/12/24 10/13/24 Range/Units 20:10 05:29 WBC 7.7 9.7 (4.5-10.0) K/mm3 Hgb 14.2 12.2 L (14.0-18.0) g/dL Hct 43.9 38.1 L (42.0-52.0) % Plt Count 204 176 (150-375) k/mm3 BMP 10/12/24 10/13/24 21:02 05:29 Sodium 139 136 L Potassium 4.3 5.0 Chloride 105 106 Carbon Dioxide 28 26 BUN 19 18 Creatinine 1.17 1.36 H Glucose 139 H 150 H Calcium 8.8 8.4 Liver Function 10/12/24 10/13/24 Range/Units 21:02 05:29 Total Bilirubin 0.3 0.6 (0.2-1.3) mg/dL AST 34 28 (17-59) U/L ALT 25 22 (6-50) U/L Alkaline Phosphatase 66 60 (38-126) U/L Albumin 3.8 3.8 (3.5-5.1) g/dL Urine 10/12/24 Range/Units 20:10 Urine Color Yellow (Yellow) Urine Appearance Clear (Clear) Urine pH 6.0 (5.0-9.0) Ur Specific [place] 1.025 (1.001-1.035) Urine Protein Negative (Negative) mg/dL Urine Glucose (UA) Negative (Negative) mg/dL
--- NOTE | 2024-10-13 06:58 | W.PM.PROC2 ---
Procedure Note - Detailed Date of Procedure 10/13/24 Pre-op Diagnosis Right ureteral stone Left Kidney stone Post-op Diagnosis Same Procedure Performed Cystoscopy, bilateral retrograde pyelogram, bilateral ureteral stent placement Surgeon Garret Hobson MD Anesthesia General Indications Failed trial of passage Description of Procedure Prior to the operation an informed consent was obtained. The patient was brought back to the operative suite and a detailed timeout was performed. General anesthesia was induced without complication. The patient was administered IV antibiotics in the prophylactic form. The patient was positioned in the dorsal lithotomy position with close attention to all pressure points and was prepped and draped in sterile fashion. We began the case using a rigid cystoscope to gain access into the bladder under direct visualization per urethra. Cystoscopy was unremarkable. We turned our attention to the left ureteral orifice and cannulated it using a 5 Marshallese open-ended ureteral catheter and sensor wire. We radiologically confirmed the wire to pass up into the renal pelvis before advancing the ureteral catheter up to get an estimated measurement for our stent size as well as performing a retrograde pyelogram to better delineate the renal pelvis. With our wire in place, we placed a 4.8Fr variable length double-J ureteral stent with no string. I performed the same steps on the right side, successfully placing bilateral ureteral stents. We confirmed excellent position fluoroscopically. The patient's bladder was emptied at the conclusion of the case and the patient tolerated the procedure well. This note was created with the assistance of voice-recognition software and may contain phonetic errors. Urine Output 0
--- NOTE | 2024-10-13 10:34 | WPDHPUPDATE1 ---
History and Physical Update Update Date/Time: 10/13/24 10:34 History and Physical has been reviewed, including an updated exam of the patient. There are NO changes in the patient's condition. Risks, benefits, and alternatives have been discussed and questions answered. Patient agrees to proceed with procedure.
--- NOTE | 2024-10-13 10:35 | PC.NURSE ---
This patient, Ramez Tanner, was transferred to pre-op on 10/13/24 at 1032. Report given to DERIAN Espinoza. Appropriate documentation sent with patient.
--- NOTE | 2024-10-13 10:42 | P.PNAN_ITS ---
Anes - Initial Pre Proc Eval Procedure: Operation Date: 10/13/24 11:00 Proposed Procedures p Cysto, RPG, Stent Placement(Bilateral) - Garret Hobson MD Date/Time: 10/13/24 10:42 Surgeon: Hyun Samuels MD Pre Op Diagnosis: kidney stone Patient Data Age: 68 Gender: M Height: 1.73 m Weight: 80.2 kg Last Vital Signs Temp 37.4 C 10/13/24 06:00 Pulse 55 L 10/13/24 06:00 Resp 20 10/13/24 06:00 BP 122/59 L 10/13/24 06:00 Pulse Ox 96 10/13/24 06:00 O2 Del Method Room Air 10/13/24 01:08 Allergies Allergy/AdvReac Type Severity Reaction Status Date / Time No Known Allergies Allergy Unknown Verified 10/13/24 00:02 Home Medications ?Medication ?Instructions ?Recorded ?Confirmed ?Type rosuvastatin 10 mg tablet 10 mg PO HS 06/26/24 10/12/24 History tadalafil 5 mg tablet 5 mg PO HS 06/26/24 10/12/24 History cefuroxime axetil 250 mg tablet 250 mg PO BID #20 tabs 10/05/24 10/13/24 Rx hydrocodone 5 mg-acetaminophen 325 1 tablet PO Q8H PRN pain #10 tabs 10/10/24 10/13/24 Rx mg tablet irbesartan 300 mg tablet 300 mg PO HS 10/12/24 10/12/24 History Laboratory Tests 10/12/24 10/12/24 10/13/24 20:10 21:02 05:29 WBC 7.7 K/mm3 9.7 K/mm3 (4.5-10.0) (4.5-10.0) RBC 4.74 M/mm3 4.10 L M/mm3 (4.6-6.20) (4.6-6.20) Hgb 14.2 g/dL 12.2 L g/dL (14.0-18.0) (14.0-18.0) Hct 43.9 % 38.1 L % (42.0-52.0) (42.0-52.0) MCV 92.6 fl 92.9 fl (80-100) (80-100) MCH 30.0 pg 29.8 pg (26-34) (26-34) MCHC 32.3 g/dl 32.0 g/dl (32-36) (32-36) RDW 12.2 % 12.2 % (11.5-14.5) (11.5-14.5) Plt Count 204 k/mm3 176 k/mm3 (150-375) (150-375) MPV 9.3 fl 9.3 fl (7.4-10.4) (7.4-10.4) Immature Gran % (Auto) 0.4 % 0.3 % (0-0.5) (0-0.5) Neut % (Auto) 53.6 % 86.3 H % (45.5-73.1) (45.5-73.1) Lymph % (Auto) 36.2 % 8.5 L % (18.3-44.2) (18.3-44.2) [place] % (Auto) 8.2 % 4.8 % (2.6-8.5) (2.6-8.5) Eos % (Auto) 1.3 % 0.0 % (0-4.4) (0-4.4) Baso % (Auto) 0.3 % 0.1 L % (0.2-1.2) (0.2-1.2) Lymph # (Auto) 2.80 K/mm3 0.82 L K/mm3 (0.9-3.2) (0.9-3.2) [place] # (Auto) 0.6 K/mm3 0.5 K/mm3 (0.1-0.6) (0.1-0.6) Eos # (Auto) 0.1 K/mm3 0.0 K/mm3 (0-0.3) (0-0.3) Baso # (Auto) 0.0 K/mm3 0.0 K/mm3 (0.0-0.1) (0.0-0.1) Abs Immat Gran (auto) 0.03 K/mm3 0.03 K/mm3 (0.00-0.031) (0.00-0.031) Absolute Neuts (auto) 4.2 K/mm3 8.4 H K/mm3 (1.3-6.7) (1.3-6.7) Absolute Nucleated RBC 0.000 K/mm3 0.000 K/mm3 (0.0-0.012) (0.0-0.012) Nucleated RBC % 0.0 % 0.0 % (0.0-0.2) (0.0-0.2) Sodium 139 mmol/L 136 L mmol/L (137-145) (137-145) Potassium 4.3 mmol/L 5.0 mmol/L (3.4-5.0) (3.4-5.0) Chloride 105 mmol/L 106 mmol/L (98-107) (98-107) Carbon Dioxide 28 mmol/L 26 mmol/L (22-30) (22-30) Anion Gap 6 mmol/L 4 mmol/L (4-12) (4-12) BUN 19 mg/dL 18 mg/dL (9-20) (9-20) Creatinine 1.17 mg/dL 1.36 H mg/dL (0.7-1.3) (0.7-1.3) Estim Creat Clear Calc 51 ml/min 45 ml/min Estimated GFR > 60 52 L (59 - ) (59 - ) Glucose 139 H mg/dL 150 H mg/dL (65-110) (65-110) Calcium 8.8 mg/dL 8.4 mg/dL (8.4-10.2) (8.4-10.2) Magnesium 1.8 mg/dL (1.6-2.3) Total Bilirubin 0.3 mg/dL 0.6 mg/dL (0.2-1.3) (0.2-1.3) AST 34 U/L 28 U/L (17-59) (17-59) ALT 25 U/L 22 U/L (6-50) (6-50) Alkaline Phosphatase 66 U/L 60 U/L (38-126) (38-126) Total Protein 6.4 g/dL 6.1 L g/dL (6.3-8.2) (6.3-8.2) Albumin 3.8 g/dL 3.8 g/dL (3.5-5.1) (3.5-5.1) Lipase 67 U/L (23-300) Urine Color Yellow (Yellow) Urine Appearance Clear (Clear) Urine pH 6.0 (5.0-9.0) Ur Specific [place] 1.025 (1.001-1.035) Urine Protein Negative mg/dL (Negative) Urine Glucose (UA) Negative mg/dL (Negative) Urine Ketones Trace H mg/dL (Negative) Ur Blood (Man) 2+ H (Negative) Urine Nitrate Negative (Negative) Urine Bilirubin Negative (Negative) Urine Urobilinogen 0.2 mg/dL (<2.0) Leukocyte Esterase Rfl Negative ERIKA/UL (Negative) Urine RBC 11-20 H /hpf (0-2) Urine WBC 0-5 /hpf (0-3) Ur Squamous Epith Cells None seen /hpf (Few) Urine Bacteria None seen /hpf Urine Casts 0-2 Patient hx anesthesia problems: none Family hx anesthesia problems: none Results Review: All pre-operative results and documents have been reviewed as part of the pre- operative evaluation. [facility] Past Medical History Medical History Hypertension Subacute sinusitis Urinary hesitancy Fatigue Laceration of left hand without foreign body Insomnia with sleep apnea BPH NOS w ur obs/LUTS Night sweats Chronic fatigue (~07/2018) Irregular heart beat (~07/2019) URI, acute (~07/2018) Testicular hyperfunction NGUYỄN (obstructive sleep apnea) BANG (generalized anxiety disorder) Family History Family History Father Hypertension Heart disease Other Family history of coronary artery disease Social History Social History Smoking status: Never smoker Second hand tobacco smoke exposure: No Alcohol intake: never Substance use: never Substance use type: does not use Lack of Transportation: No Lack of Food: Never True Current Housing: I Have Housing Concerned About Future Housing: No Difficulty Paying Gas/Electric Bills: No Difficulty Paying for Meds: No Currently Unemployed: No Education: Bachelor's Degree Difficulty w/ Childcare or Family Care: No Living arrangements: with family Gender identity (if verbalized by the patient): Male Spiritual care concerns: No Anes - Eval Final PreProcedure Day of Procedure 10/13/24 10:42 Patient weight: overweight Heart: regular rate and rhythm Lungs: clear to auscultation Airway: Mallampati scale class II Neurological: alert and oriented Last oral intake: >/= 8 hours ASA classification: III Emergent: no Anesthetic plan: proceed Anesthesia type and monitoring: general LMA Results Review: All pre-operative results and documents have been reviewed as part of the pre- operative evaluation. Informed Consent: The patient's anesthetic plan and its attendant risks and benefits were discussed with the patient/family/POA. Questions were solicited and answers provided to the satisfaction of the patient/family/POA.
[2024-10-13] MEDS: LACTATED RINGERS 1,000 ML 30 ML IV CONT (11:20)
[2024-10-13] MEDS: LIDOCAINE 2% GEL UROJET 10 ML PKG MUCOUS MEM (11:43)
--- NOTE | 2024-10-13 12:48 | PC.NURSE ---
Returned from PACU per bed. Report received from DERIAN Espinoza.
--- NOTE | 2024-10-13 13:13 | P.DS_ITS ---
DS: Admitting Diagnosis Discharge Date 10/13/2024 Admitting Diagnosis right-sided hydroureteronephrosis secondary to a 5.9 mm calculus within the proximal to mid right ureter with ANA LILIA DS: Discharge Diagnosis Discharge Diagnosis (1) Ureteral stone with hydronephrosis: Code(s): N13.2 - Hydronephrosis with renal and ureteral calculous obstruction Status: Acute Assessment and Plan: -Right sided proximal to mid ureteral obstructing stone with intractable pain requiring multiple doses of Dilaudid in ER -Mild progression of stone since discovery 2 days prior -Urology consulted with plan for lithotripsy or stent in the morning -NPO status -Pain/nausea medication PRN -Still intractable pain on arrival to the floor--IM Levsin 0.25 mg x1 and additional IV Dilaudid then patient finally able to rest -Pain resolved after cysto, retrograde pyelogram, stone extraction, and stent 10/13 (2) Hydroureteronephrosis: Code(s): N13.30 - Unspecified hydronephrosis Status: Acute Assessment and Plan: -Right sided hydroureteronephrosis -No UTI but pain intractable -Also large left sided stone entering the renal pelvis places patient at high risk for bilateral ureteral obstruction -Resolved after procedure (3) Primary hypertension: Code(s): I10 - Essential (primary) hypertension Status: Chronic Assessment and Plan: -Noted history, resume home medications when no longer NPO (4) Kidney stone on right side: Code(s): N20.0 - Calculus of kidney Status: Acute (5) Anemia: Code(s): D64.9 - Anemia, unspecified Status: Acute Assessment and Plan: -Likely secondary to dilution and phlebotomies (6) ANA LILIA (acute kidney injury): Code(s): N17.9 - Acute kidney failure, unspecified Status: Acute Assessment and Plan: -Secondary to right hydronephrosis DS: Summary Hospital Course Hospital Course: Admitted October 12 with unrelenting right flank pain secondary to right ureteral stone with failure to pass. Was admitted for IV fluids for hydration as well as analgesics. Underwent cystoscopy with retrograde pyelography stone removal and stent placement on the right ureter October 13. Tolerated well. Pain resolved. Up and about without difficulty. Tolerating diet. Alert and oriented. Wished to go home. He will follow up as an outpatient with his primary care [facility] and with his urologist. Time Spent with Patient Time attestation: Total time spent providing and/or coordinating discharge services: Exam Narrative: GENERAL: NAD, well-nourished HEAD: Normocephalic, atraumatic. ENT:? Mucous membranes moist. CHEST: Clear to auscultation.? NL effort. HEART: Regular rate and rhythm. ? Normal peripheral pulses. ABDOMEN: Soft, nontender, nondistended, nontender, bs hypoactive EXTREMITIES: No peripheral edema. SKIN: Warm dry normal color NEURO: Alert and oriented x4 PSYCH: Normal mood and affect DS: Data Data Completed and Pending Labs on day of discharge: Labs from last 24 hours 10/13/24 10/12/24 10/12/24 05:29 21:02 20:10 WBC 9.7 7.7 RBC 4.10 L 4.74 Hgb 12.2 L 14.2 Hct 38.1 L 43.9 MCV 92.9 92.6 MCH 29.8 30.0 MCHC 32.0 32.3 RDW 12.2 12.2 Plt Count 176 204 MPV 9.3 9.3 Immature Gran % (Auto) 0.3 0.4 Neut % (Auto) 86.3 H 53.6 Lymph % (Auto) 8.5 L 36.2 [place] % (Auto) 4.8 8.2 Eos % (Auto) 0.0 1.3 Baso % (Auto) 0.1 L 0.3 Lymph # (Auto) 0.82 L 2.80 [place] # (Auto) 0.5 0.6 Eos # (Auto) 0.0 0.1 Baso # (Auto) 0.0 0.0 Abs Immat Gran (auto) 0.03 0.03 Absolute Neuts (auto) 8.4 H 4.2 Absolute Nucleated RBC 0.000 0.000 Nucleated RBC % 0.0 0.0 Sodium 136 L 139 Potassium 5.0 4.3 Chloride 106 105 Carbon Dioxide 26 28 Anion Gap 4 6 BUN 18 19 Creatinine 1.36 H 1.17 Estim Creat Clear Calc 45 51 Estimated GFR 52 L > 60 Glucose 150 H 139 H Calcium 8.4 8.8 Magnesium 1.8 Total Bilirubin 0.6 0.3 AST 28 34 ALT 22 25 Alkaline Phosphatase 60 66 Total Protein 6.1 L 6.4 Albumin 3.8 3.8 Lipase 67 Urine Color Yellow Urine Appearance Clear Urine pH 6.0 Ur Specific [place] 1.025 Urine Protein Negative Urine Glucose (UA) Negative Urine Ketones Trace H Ur Blood (Man) 2+ H Urine Nitrate Negative Urine Bilirubin Negative Urine Urobilinogen 0.2 Leukocyte Esterase Rfl Negative Urine RBC 11-20 H Urine WBC 0-5 Ur Squamous Epith Cells None seen Urine Bacteria None seen Urine Casts 0-2 Discharge Plan Discharge Consulting providers: Garret Hobson Discharging Clinician: Trever Dee Patient Disposition: Home Activity: no preference Diet: regular Discharge Instructions: Dr. Hobson is unable to e-prescribe narcotics through this EMR, and does not have a paper prescription pad -- if patient needs post-op pain meds, he can continue what he was given in the ER from his prior visit Patient Instructions: Antibiotic Form Patient Language: [place] Stand Alone Forms: General Discharge Information Follow-up/Referrals: Cortes Paez MD [Physician] - ([place] [facility] [place]. Avoid NSAIDS, Aspirin, and blood thinners until further urologic instruction. 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
== END 2024-10-13 16:15 | disposition home or self-care (01) ==
LOC: ANHED 20:28 → ANH3MEDSUR 10-13 00:29
PROVIDERS: Nurse Practitioner; Student in an Organized Health Care Education/Training Program; Urology; Admitting Provider Internal Medicine; Emergency Provider Registered Nurse; PCP Physician Assistant; Visit Provider Internal Medicine
PROC: (CPT 52352; principal; 2024-10-13 11:30)
DX: N13.2 Hydronephrosis with renal and ureteral calculous obstruction (principal); N17.9 Acute kidney failure, unspecified; D64.9 Anemia, unspecified; I10 Essential (primary) hypertension; F41.1 Generalized anxiety disorder
CPT/HCPCS: 52332; 36415; 74176; 74420; 80053; 81001; 83690; 83735; 85025; 96361; 96374; 99285; A9270; C1758; C1769; C2617; G0378; G0379; J0690; J1100; J1171; J1980; J2270; J2405; J2704; J3010; J7030; J7120; Q9966

== ENCOUNTER 2024-10-26 14:41 | Outpatient (CLI) | payer MEDICARE, SELFPAY ==
--- NOTE | ~2024-10-26 | XR_ITS ---
XR abdomen/kub 1V 10/26/2024 15:21 Indication: Renal stones Procedure: KUB Comparison: No prior studies for comparison. Findings: There are bilateral renal stones. There are multiple pelvic phleboliths. Bilateral internal ureteral stents are in expected position. Bowel gas pattern nonobstructive. Impression: 1: Bilateral nephrolithiasis. Reviewed, dictated and finalized at location O. Impression: 1: Bilateral nephrolithiasis.
== END 2024-10-26 14:42 | disposition home or self-care (01) ==
LOC: MICIMG 14:43
PROVIDERS: PCP Urology; Visit Provider Urology
DX: N20.0 Calculus of kidney (principal)
CPT/HCPCS: 74018

== ENCOUNTER 2024-11-13 15:05 | Outpatient (CLI) | payer MEDICARE, SELFPAY ==
--- NOTE | ~2024-11-13 | XR_ITS ---
Abdominal radiograph(s) INDICATION: Kidney stones COMPARISON: 10/26/2024 TECHNIQUE: 2 views AP supine abdomen FINDINGS: Several left-sided stones. Small right-sided stones. Ureteral stents removed. No ureteral calculi noted. Pelvic phleboliths. Lung bases clear. Scattered colonic gas and stool. Small bowel loops not well seen. No evidence of organomegaly. No acute bony abnormality. IMPRESSION: 1. Several left-sided stones. 2. Small right-sided stones. Reviewed, dictated and finalized at location R.
== END 2024-11-13 15:06 | disposition home or self-care (01) ==
LOC: MICIMG 15:07
PROVIDERS: PCP Urology; Visit Provider Urology
DX: N20.0 Calculus of kidney (principal)
CPT/HCPCS: 74018

== ENCOUNTER 2025-01-16 10:25 | Outpatient (CLI) | payer MEDICARE, SELFPAY ==
--- NOTE | ~2025-01-16 | CT_ITS ---
EXAMINATION:CT diagnostic chest w con DATE: 01/16/2025 11:11 INDICATION: Chronic cough TECHNIQUE: Computed tomography (CT) of the chest was performed with intravenous contrast. The dose-length product (DLP) was 241.12 mGy-cm. COMPARISON: None. FINDINGS: The lungs are clear with no consolidation effusion or pneumothorax. No suspicious nodules or masses. Minimal bibasilar atelectatic or fibrotic appearing changes. Heart size upper limits normal. No significant pericardial effusion. No thoracic aortic aneurysm/dissection or pulmonary emboli. No bulky lymphadenopathy or masses. Central and large airways are patent. Diffuse degenerative changes in the bones which otherwise appear intact. Mild to moderate bilateral gynecomastia with no focal acute process seen in the extrathoracic soft tissues or visualized portions of the upper abdomen. IMPRESSION: 1. No acute intrathoracic abnormality. Minimal atelectatic or fibrotic changes in the lung bases. 2. Other chronic findings as above. Reviewed, dictated and finalized at location A. [employer]
[2025-01-16 10:42] LABS: Estimated Glomerular Filt Rate 55
== END 2025-01-16 10:26 | disposition home or self-care (01) ==
LOC: MICIMG 10:26
PROVIDERS: PCP Physician Assistant; Visit Provider Physician Assistant
DX: M85.88 Other specified disorders of bone density and structure, other site (principal); N62 Hypertrophy of breast; R05.3 Chronic cough
CPT/HCPCS: 71260; Q9967